=== PATIENT | male | born 1950 | race African-American/Black ===

== ENCOUNTER 2023-11-04 13:14 | Inpatient (IN) | payer BC, OTHER ==
[2023-11-04 15:08] LABS: HEMATOCRIT 41.4 % (35.4-49); MCH 31.8 pg (25.7-33.7); MCHC 33.8 g/dl (32.0-35.9); MEAN CELL VOLUME 94.1 fl (80-96); PLATELET COUNT 256 10^3/uL (134-434); RDW 16.1 % (11.9-15.9); VENOUS BASE EXCESS -2.1 mmol/L (-2-2); VENOUS PCO2 48.8 mmHg (38-52); VENOUS PH 7.32 (7.310-7.410); WHITE BLOOD COUNT 10.6 K/mm3 (4.0-10.0)
[2023-11-04] MEDS: SODIUM CHLORIDE 1,000 ML IV STA ×2 (15:27→20:53)
[2023-11-04] MEDS: ALBUTEROL SO4 2.5/IPRATROPIUM 0.5 INH SOL 3 ML VIAL.NEB. NEB SCH (15:30)
[2023-11-04] MEDS: MAGNESIUM SULFATE IN WATER 2 GM/50 ML IVPB IVPB ONE (15:30)
[2023-11-04] MEDS: methylPREDNISolone NA SUCC 125 MG/2 ML VIAL IVPB ONE ×2 (15:30→16:01)
[2023-11-04 15:39] LABS: CHLORIDE 90 mmol/L (98-107); POTASSIUM 4.7 mmol/L (3.5-5.1); SODIUM 129 mmol/L (136-145)
[2023-11-04 15:42] LABS: ALBUMIN 2.2 g/dl (3.4-5.0); ANION GAP 15 mmol/L (4-13); CALCIUM 8.4 mg/dL (8.5-10.1); CO2 24 mmol/L (21-32); GLUCOSE,RANDOM 240 mg/dL (74-106)
[2023-11-04 15:45] LABS: CREATININE 3.7 mg/dL (0.55-1.3); SGOT/AST 460 U/L (15-37); SGPT/ALT 271 U/L (13-61)
[2023-11-04 15:46] LABS: BILIRUBIN,TOTAL 1.2 mg/dL (0.2-1); TOT PROT 6.7 g/dl (6.4-8.2)
[2023-11-04 15:48] LABS: ALK PHOS 43 U/L (45-117)
[2023-11-04 15:57] LABS: LACTIC ACID 3.2 mmol/L (0.4-2.0)
[2023-11-04] MEDS ORDERED: LACTATED RINGERS SOLUTION 1,000 ML/1,000 ML INFUS.BAG IV SCH (17:15)
[2023-11-04] MEDS: CEFTRIAXONE 1 GM in DEXTROSE 5%-WATER - 100 ML IVPB ONE (17:20)
[2023-11-04 17:54] LABS: VENOUS O2 SATURATION 54.4 % (70-80); VENOUS PCO2 48.7 mmHg (38-52); VENOUS PH 7.293 (7.310-7.410)
[2023-11-04 18:38] LABS: CHLORIDE 93 mmol/L (98-107); POTASSIUM 4.6 mmol/L (3.5-5.1); SODIUM 132 mmol/L (136-145)
[2023-11-04 18:39] LABS: CALCIUM 8.3 mg/dL (8.5-10.1)
[2023-11-04 18:40] LABS: ALBUMIN 2.2 g/dl (3.4-5.0); ANION GAP 18 mmol/L (4-13); CO2 21 mmol/L (21-32); GLUCOSE,RANDOM 252 mg/dL (74-106)
[2023-11-04 18:43] LABS: CREATININE 3.5 mg/dL (0.55-1.3); SGOT/AST 443 U/L (15-37); SGPT/ALT 265 U/L (13-61)
[2023-11-04 18:45] LABS: BILIRUBIN,TOTAL 1.3 mg/dL (0.2-1); TOT PROT 6.5 g/dl (6.4-8.2)
[2023-11-04 18:46] LABS: ALK PHOS 41 U/L (45-117)
[2023-11-04 19:08] LABS: BLOOD UREA NITROGEN 115.7 mg/dL (7-18); N-TERMINAL BNP 65438.7 pg/ml (5-125)
[2023-11-04] MEDS ORDERED: IBUPROFEN 400 MG TABLET (FP) PO ONE (20:37)
[2023-11-04] MEDS ORDERED: THIAMINE HCL 200 MG/2 ML VIAL ONE (20:37)
[2023-11-04] MEDS: IBUPROFEN 400 MG TABLET (FP) PO ONE (20:53)
[2023-11-04] MEDS: THIAMINE HCL 200 MG/2 ML VIAL IVPB ONE (20:53)
[2023-11-04] MEDS ORDERED: FLUTICASONE/SALMETEROL (WIXELA) 100 MCG/50 MCG DISKUS IH SCH (22:00)
[2023-11-04] MEDS ORDERED: HEPARIN NA (PORCINE) 5,000 UNITS/ML 1ML VIAL ONE (22:30)
[2023-11-04] MEDS ORDERED: INSULIN ASPART SLIDING SCALE (NOVOLOG) 1 VIAL SQ ONE (22:30)
[2023-11-04] MEDS: HEPARIN NA (PORCINE) 5,000 UNITS/ML 1ML VIAL SQ SCH (22:46)
[2023-11-04] MEDS: INSULIN ASPART SLIDING SCALE (NOVOLOG) 1 VIAL SQ SCH (22:47)
[2023-11-05 00:08] LABS: EPI CELLS 5 /uL (0-25.1); HYALINE CASTS 2 /uL (0-3.1); PH,URINE 5.5 (5.0-8.0); URINE APPEARANCE CLEAR; URINE BACTERIA 0 /uL (0-1359); URINE BILIRUBIN NEGATIVE (NEGATIVE); URINE COLOR YELLOW; URINE GLUCOSE (UA) NEGATIVE (NEGATIVE); URINE KETONE NEGATIVE (NEGATIVE); URINE LEUK ESTERASE NEGATIVE (NEGATIVE); URINE NITRITE NEGATIVE (NEGATIVE); URINE PROTEIN 2+ (NEGATIVE); URINE UROBILINOGEN 0.2 mg/dL (0.2-1.0); URINE WBC 10 /uL (0-25.8)
[2023-11-05 07:57] LABS: HEMATOCRIT 39.7 % (35.4-49); HEMOGLOBIN 13.5 GM/dL (11.7-16.9); MCH 31.8 pg (25.7-33.7); MEAN CELL VOLUME 93.3 fl (80-96); MEAN PLT VOLUME 10.3 fl (7.5-11.1); PLATELET COUNT 221 10^3/uL (134-434); RBC 4.25 M/mm3 (4.00-5.60); RDW 15.6 % (11.9-15.9); WHITE BLOOD COUNT 10.1 K/mm3 (4.0-10.0)
[2023-11-05 08:08] LABS: CHLORIDE 92 mmol/L (98-107); SODIUM 132 mmol/L (136-145)
[2023-11-05 08:11] LABS: CALCIUM 8.2 mg/dL (8.5-10.1)
[2023-11-05 08:12] LABS: ALBUMIN 1.8 g/dl (3.4-5.0); ANION GAP 16 mmol/L (4-13); BLOOD UREA NITROGEN 129.5 mg/dL (7-18); CO2 24 mmol/L (21-32); GLUCOSE,RANDOM 334 mg/dL (74-106); MAGNESIUM 3.1 mg/dL (1.8-2.4)
[2023-11-05 08:15] LABS: CREATININE 3.2 mg/dL (0.55-1.3); PHOSPHOROUS 5.8 mg/dL (2.5-4.9); SGOT/AST 479 U/L (15-37); SGPT/ALT 237 U/L (13-61)
[2023-11-05 08:16] LABS: BILIRUBIN,TOTAL 1.2 mg/dL (0.2-1); TOT PROT 5.6 g/dl (6.4-8.2)
[2023-11-05 08:18] LABS: ALK PHOS 38 U/L (45-117)
[2023-11-05 09:04] LABS: ANISOCYTOSIS 0; MACROCYTOSIS 0
[2023-11-05] MEDS: THIAMINE 100 MG TABLET PO SCH (10:20)
[2023-11-05 10:39] LABS: BILIRUBIN,DIRECT 0.9 mg/dL (0.0-0.2)
[2023-11-05 10:48] LABS: ARTERIAL BLOOD GAS BASE EXCESS -5.6 mmol/L (-2-2); ARTERIAL BLOOD GAS PO2 93.2 mmHg (80-100); ARTERIAL BLOOD GAS pH 7.364 (7.350-7.450)
[2023-11-05 10:52] LABS: ALLENS TEST POSITIVE
[2023-11-05] MEDS: methylPREDNISolone NA SUCC 40 MG/1 ML VIAL IVPUSH SCH (11:17)
[2023-11-05] MEDS: PIPERACILLIN/TAZOB 2.25 GM 2.25 GM in DEXTROSE 5%-WATER - 50 ML IVPB SCH ×2 (11:19→18:02)
[2023-11-05] MEDS: FOLIC ACID 1 MG TABLET (FP) PO SCH (11:20)
[2023-11-05] MEDS: LACTATED RINGERS SOLUTION 1,000 ML/1,000 ML INFUS.BAG IV SCH ×2 (11:24→17:02)
[2023-11-05] MEDS: SODIUM CHLORIDE 250 ML IV STA (11:47)
[2023-11-05] MEDS ORDERED: MIDAZOLAM HCL 5 MG/1 ML Single Dose Vial ONE (11:54)
[2023-11-05] MEDS ORDERED: PROPOFOL 1,000,000 MCG/100 ML VIAL ONE (12:02)
[2023-11-05 12:09] LABS: HEMATOCRIT 37.4 % (35.4-49); HEMOGLOBIN 12.6 GM/dL (11.7-16.9); MCH 31.5 pg (25.7-33.7); MCHC 33.7 g/dl (32.0-35.9); MEAN CELL VOLUME 93.5 fl (80-96); MEAN PLT VOLUME 10.3 fl (7.5-11.1); PLATELET COUNT 231 10^3/uL (134-434); RDW 15.9 % (11.9-15.9); WHITE BLOOD COUNT 9.4 K/mm3 (4.0-10.0)
[2023-11-05] MEDS ORDERED: VASopressin 20 UNITS/ML VIAL IV ONE (12:17)
[2023-11-05] MEDS ORDERED: PHENYLEPHRINE HCL 10 MG/1 ML SINGLE DOSE VIAL ONE ×2 (12:21→23:16)
[2023-11-05 12:34] LABS: ANISOCYTOSIS 0; MACROCYTOSIS 0
[2023-11-05 12:57] LABS: LACTIC ACID 2.8 mmol/L (0.4-2.0)
[2023-11-05] MEDS ORDERED: PANTOPRAZOLE SODIUM 80 MG in SODIUM CHLORIDE 100 ML IVPB SCH (15:00)
[2023-11-05] MEDS ORDERED: PANTOPRAZOLE SODIUM 40 MG VIAL IVPUSH SCH ×2 (15:02→22:00)
[2023-11-05] MEDS: PHENYLEPHRINE NS PREMIX 50,000 MCG/500 ML BAG IVPB SCH (15:06)
[2023-11-05] MEDS: VASopressin 40 UNITS/100 ML BAG IV SCH (15:07)
[2023-11-05] MEDS: MIDAZOLAM HCL 5 MG/1 ML Single Dose Vial IVPUSH ONE (15:08)
[2023-11-05 15:36] LABS: INR 1.54 (0.83-1.09); PROTHROMBIN TIME (PATIENT) 17.5 SEC (9.7-13.0)
[2023-11-05 15:37] LABS: HEMATOCRIT 36.3 % (35.4-49); HEMOGLOBIN 12.4 GM/dL (11.7-16.9); MCH 31.8 pg (25.7-33.7); MCHC 34.1 g/dl (32.0-35.9); MEAN CELL VOLUME 93.1 fl (80-96); RDW 15.9 % (11.9-15.9); WHITE BLOOD COUNT 11.8 K/mm3 (4.0-10.0)
[2023-11-05 15:48] LABS: CHLORIDE 96 mmol/L (98-107); POTASSIUM 4.3 mmol/L (3.5-5.1); SODIUM 132 mmol/L (136-145)
[2023-11-05 15:50] LABS: ALBUMIN 1.6 g/dl (3.4-5.0); ANION GAP 17 mmol/L (4-13); CO2 20 mmol/L (21-32); GLUCOSE,RANDOM 290 mg/dL (74-106)
[2023-11-05 15:53] LABS: CREATININE 3.3 mg/dL (0.55-1.3); SGOT/AST 502 U/L (15-37)
[2023-11-05 15:55] LABS: BILIRUBIN,TOTAL 1.1 mg/dL (0.2-1); TOT PROT 5.2 g/dl (6.4-8.2)
[2023-11-05] MEDS: VANCOMYCIN/WATER FOR INJ (PEG) 1,000 MG/200 ML BAG IVPB ONE (15:55)
[2023-11-05 15:56] LABS: ALK PHOS 36 U/L (45-117)
[2023-11-05 15:56] LABS: MEAN PLT VOLUME 10.3 fl (7.5-11.1); PLATELET COUNT 230 10^3/uL (134-434)
[2023-11-05 15:59] LABS: SGPT/ALT 223 U/L (13-61)
[2023-11-05 16:07] LABS: BLOOD UREA NITROGEN 141.6 mg/dL (7-18)
[2023-11-05 16:19] LABS: LACTIC ACID 2.6 mmol/L (0.4-2.0)
[2023-11-05] MEDS: NOREPINEPHRINE 0.9 % NACL 8 MG/250 ML BAG IVPB SCH (16:31)
[2023-11-05 16:39] LABS: HEMATOCRIT 37.3 % (35.4-49); HEMOGLOBIN 12.4 GM/dL (11.7-16.9); MCH 31.1 pg (25.7-33.7); MCHC 33.2 g/dl (32.0-35.9); MEAN CELL VOLUME 93.4 fl (80-96); RBC 3.99 M/mm3 (4.00-5.60); RDW 15.9 % (11.9-15.9); WHITE BLOOD COUNT 11.9 K/mm3 (4.0-10.0)
[2023-11-05 17:01] LABS: ANISOCYTOSIS 1+; MACROCYTOSIS 0; MEAN PLT VOLUME 10.4 fl (7.5-11.1); PLATELET COUNT 227 10^3/uL (134-434)
[2023-11-05] MEDS: MIDAZOLAM IN 0.9 % SOD.CHLORID 100 MG/100 ML PLAST..BAG IVPB SCH (17:02)
[2023-11-05] MEDS: SODIUM CHLORIDE 500 ML IV STA ×2 (17:03→20:37)
[2023-11-05] MEDS: PANTOPRAZOLE SODIUM 160 MG in SODIUM CHLORIDE 250 ML IVPB SCH ×2 (18:02→19:00)
[2023-11-05] MEDS: FENTANYL NS IVPB 500 MCG/100 ML BAG IVPB SCH (19:52)
[2023-11-05 21:05] LABS: VENOUS BASE EXCESS -7.3 mmol/L (-2-2); VENOUS O2 SATURATION 53.9 % (70-80); VENOUS PCO2 49.1 mmHg (38-52); VENOUS PH 7.236 (7.310-7.410)
[2023-11-05 21:06] LABS: HEMATOCRIT 35.8 % (35.4-49); HEMOGLOBIN 12.1 GM/dL (11.7-16.9); MCH 31.4 pg (25.7-33.7); MCHC 33.7 g/dl (32.0-35.9); MEAN CELL VOLUME 93.1 fl (80-96); MEAN PLT VOLUME 10.6 fl (7.5-11.1); PLATELET COUNT 201 10^3/uL (134-434); RBC 3.85 M/mm3 (4.00-5.60); RDW 16.1 % (11.9-15.9); WHITE BLOOD COUNT 10.7 K/mm3 (4.0-10.0)
[2023-11-05] MEDS: LACTATED RINGERS SOLUTION 1000 ML INFUS.BAG IV ONE (23:45)
[2023-11-06 06:53] LABS: HEMATOCRIT 33.4 % (35.4-49); HEMOGLOBIN 11.1 GM/dL (11.7-16.9); MCH 31.6 pg (25.7-33.7); MCHC 33.1 g/dl (32.0-35.9); MEAN CELL VOLUME 95.4 fl (80-96); MEAN PLT VOLUME 10.8 fl (7.5-11.1); PLATELET COUNT 165 10^3/uL (134-434); RBC 3.51 M/mm3 (4.00-5.60); RDW 15.8 % (11.9-15.9); WHITE BLOOD COUNT 10.3 K/mm3 (4.0-10.0)
[2023-11-06 06:58] LABS: INR 1.54 (0.83-1.09); PROTHROMBIN TIME (PATIENT) 17.5 SEC (9.7-13.0)
[2023-11-06 07:01] LABS: ACTIVATED PTT 28.3 SECONDS (25.2-36.5)
[2023-11-06 08:43] LABS: HEMATOCRIT 34.2 % (35.4-49); HEMOGLOBIN 11.3 GM/dL (11.7-16.9); MCH 31.4 pg (25.7-33.7); MCHC 33.1 g/dl (32.0-35.9); MEAN PLT VOLUME 10.4 fl (7.5-11.1); PLATELET COUNT 148 10^3/uL (134-434); RDW 16.3 % (11.9-15.9); WHITE BLOOD COUNT 11.8 K/mm3 (4.0-10.0)
[2023-11-06 09:06] LABS: CHLORIDE 106 mmol/L (98-107); SODIUM 136 mmol/L (136-145)
[2023-11-06 09:08] LABS: CALCIUM 7.5 mg/dL (8.5-10.1)
[2023-11-06 09:09] LABS: ALBUMIN 1.5 g/dl (3.4-5.0); ANION GAP 15 mmol/L (4-13); CO2 14 mmol/L (21-32); GLUCOSE,RANDOM 133 mg/dL (74-106)
[2023-11-06 09:11] LABS: BLOOD UREA NITROGEN 135.4 mg/dL (7-18); SGPT/ALT 276 U/L (13-61)
[2023-11-06 09:12] LABS: CREATININE 3.5 mg/dL (0.55-1.3); SGOT/AST 903 U/L (15-37)
[2023-11-06 09:13] LABS: BILIRUBIN,TOTAL 1.1 mg/dL (0.2-1); TOT PROT 4.9 g/dl (6.4-8.2)
[2023-11-06 09:14] LABS: ALK PHOS 35 U/L (45-117); ANISOCYTOSIS 0; MACROCYTOSIS 0
[2023-11-06 09:58] LABS: ARTERIAL BLOOD GAS PO2 70.6 mmHg (80-100)
[2023-11-06] MEDS ORDERED: AZITHROMYCIN IVPB 500 MG/250 ML BAG IVPB SCH ×2 (10:00→23:00)
[2023-11-06] MEDS ORDERED: PANTOPRAZOLE 40 MG TABLET PO SCH (10:00)
[2023-11-06 10:03] LABS: VENT MODE A/C; VENT RATE 12
[2023-11-06] MEDS: AZITHROMYCIN IVPB 500 MG/250 ML BAG IVPB SCH (10:23)
[2023-11-06 11:22] LABS: VENOUS BASE EXCESS -13.3 mmol/L (-2-2); VENOUS O2 SATURATION 70.7 % (70-80); VENOUS PCO2 36.3 mmHg (38-52)
[2023-11-06 11:27] LABS: VENOUS PH 7.198 (7.310-7.410)
[2023-11-06] MEDS: HYDROCORTISONE SOD SUCCINATE 100 MG/2 ML VIAL IVPUSH SCH (11:48)
[2023-11-06] MEDS: PIPERACILLIN/TAZOB 2.25 GM 2.25 GM in DEXTROSE 5%-WATER - 50 ML IVPB SCH (12:13)
[2023-11-06] MEDS: FENTANYL IVPB 500 MCG/100 ML BAG IVPB SCH (12:13)
[2023-11-06] MEDS: PANTOPRAZOLE SODIUM 40 MG VIAL IVPUSH SCH (12:13)
[2023-11-06] MEDS: PROPOFOL 1,000,000 MCG/100 ML VIAL IVPB SCH (12:13)
[2023-11-06] MEDS: DOXYCYCLINE INJECTION 100 MG in DEXTROSE 5%-WATER 100 ML IVPB SCH (12:13)
[2023-11-06] MEDS: ADENOSINE 6 MG/2 ML VIAL IVPUSH ONE (12:13)
[2023-11-06] MEDS: AZITHROMYCIN IVPB 500 MG in DEXTROSE 5%-WATER - 250 ML IVPB ONE (12:13)
[2023-11-06] MEDS: dilTIAZem HCL 50 MG/10 ML - 10 ML VIAL IVPUSH ONE (12:16)
[2023-11-06] MEDS: SODIUM BICARBONATE 8.4% 50 MEQ/50 ML DISP.SYRIN IVPUSH ONE (12:37)
[2023-11-06 13:09] LABS: METHADONE, UR NEGATIVE (NEGATIVE); URINE AMPHETAMINES NEGATIVE (NEGATIVE); URINE BARBITURATES NEGATIVE (NEGATIVE)
[2023-11-06 13:10] LABS: PHENCYCLIDINE,URINE NEGATIVE (NEGATIVE)
[2023-11-06 13:18] LABS: COCAINE, UR NEGATIVE (NEGATIVE); OPIATES, URI NEGATIVE (NEGATIVE); URINE BENZODIAZEPINES POSITIVE (NEGATIVE)
[2023-11-06] MEDS: SODIUM BICARBONATE 8.4% - 150 MEQ in DEXTROSE 5%-WATER - 950 ML IVPB SCH (13:25)
[2023-11-06] MEDS: FLUDROCORTISONE ACETATE 0.1 MG TABLET (FP) NGT SCH (15:49)
[2023-11-06] MEDS: DIGOXIN 0.5 MG/2 ML AMPUL IVPUSH SCH (16:44)
[2023-11-07 02:54] LABS: HEMATOCRIT 29.6 % (35.4-49); HEMOGLOBIN 9.9 GM/dL (11.7-16.9); MCHC 33.3 g/dl (32.0-35.9); MEAN CELL VOLUME 93.2 fl (80-96); MEAN PLT VOLUME 10.3 fl (7.5-11.1); PLATELET COUNT 102 10^3/uL (134-434); RBC 3.17 M/mm3 (4.00-5.60); RDW 16.9 % (11.9-15.9); WHITE BLOOD COUNT 18.9 K/mm3 (4.0-10.0)
[2023-11-07 02:55] LABS: ARTERIAL BLD GAS O2 SATURATION 93.3 % (95-98); ARTERIAL BLOOD GAS BASE EXCESS -8.6 mmol/L (-2-2); ARTERIAL BLOOD GAS PO2 75.4 mmHg (80-100); ARTERIAL BLOOD GAS pH 7.269 (7.350-7.450)
[2023-11-07 03:01] LABS: INR 2.09 (0.83-1.09); PROTHROMBIN TIME (PATIENT) 23.1 SEC (9.7-13.0)
[2023-11-07 03:04] LABS: ACTIVATED PTT 32.5 SECONDS (25.2-36.5)
[2023-11-07 03:14] LABS: CHLORIDE 103 mmol/L (98-107); POTASSIUM 4.8 mmol/L (3.5-5.1); SODIUM 136 mmol/L (136-145)
[2023-11-07 03:16] LABS: ALBUMIN 1.4 g/dl (3.4-5.0); MAGNESIUM 2.9 mg/dL (1.8-2.4)
[2023-11-07 03:17] LABS: GLUCOSE,RANDOM 316 mg/dL (74-106)
[2023-11-07 03:20] LABS: CREATININE 4.4 mg/dL (0.55-1.3); PHOSPHOROUS 7.7 mg/dL (2.5-4.9); SGPT/ALT 716 U/L (13-61)
[2023-11-07 03:21] LABS: BILIRUBIN,TOTAL 1.7 mg/dL (0.2-1); TOT PROT 4.5 g/dl (6.4-8.2)
[2023-11-07 03:22] LABS: ALK PHOS 39 U/L (45-117)
[2023-11-07 03:27] LABS: ANION GAP 14 mmol/L (4-13); BLOOD UREA NITROGEN 146.7 mg/dL (7-18); CALCIUM 6.7 mg/dL (8.5-10.1); CO2 19 mmol/L (21-32)
[2023-11-07 03:28] LABS: ANISOCYTOSIS 3+; MACROCYTOSIS 3+
[2023-11-07 04:01] LABS: SGOT/AST 4111 U/L (15-37)
[2023-11-07 09:24] LABS: BILIRUBIN,DIRECT 1.3 mg/dL (0.0-0.2)
[2023-11-07] MEDS ORDERED: FLUDROCORTISONE ACETATE 0.1 MG TABLET (FP) NGT SCH (10:00)
[2023-11-07 11:48] LABS: HEMATOCRIT 27.5 % (35.4-49); MCH 30.4 pg (25.7-33.7); MCHC 32.7 g/dl (32.0-35.9); MEAN PLT VOLUME 10.1 fl (7.5-11.1); PLATELET COUNT 62 10^3/uL (134-434); RBC 2.96 M/mm3 (4.00-5.60); RDW 16.7 % (11.9-15.9); WHITE BLOOD COUNT 18.3 K/mm3 (4.0-10.0)
[2023-11-07 12:15] LABS: ANISOCYTOSIS 0; MACROCYTOSIS 0
[2023-11-07] MEDS ORDERED: PIPERACILLIN/TAZOB 2.25 GM 2.25 GM in DEXTROSE 5%-WATER - 50 ML IVPB SCH (12:45)
[2023-11-07] MEDS: OCTREOTIDE ACETATE 50 MCG/1 ML - 1 ML VIAL IVPUSH ONE (12:57)
[2023-11-07] MEDS: OCTREOTIDE ACETATE 200 MCG, OCTREOTIDE ACETATE 1,000 MCG in DEXTROSE 5%-WATER - 496 ML IVPB SCH (12:57)
[2023-11-07] MEDS: PIPERACILLIN/TAZOB 2.25 GM 2.25 GM in DEXTROSE 5%-WATER - 50 ML IVPB SCH (16:25)
[2023-11-07 20:09] LABS: ANTIGLOMERULAR BASEMENT MEN.AB <0.2 units (0.0-0.9)
[2023-11-08 08:02] LABS: HEMATOCRIT 26.5 % (35.4-49); HEMOGLOBIN 8.8 GM/dL (11.7-16.9); MCH 30.9 pg (25.7-33.7); MCHC 33.1 g/dl (32.0-35.9); MEAN CELL VOLUME 93.3 fl (80-96); MEAN PLT VOLUME 10.9 fl (7.5-11.1); PLATELET COUNT 40 10^3/uL (134-434); RBC 2.84 M/mm3 (4.00-5.60); RDW 16.4 % (11.9-15.9)
[2023-11-08 08:14] LABS: CHLORIDE 98 mmol/L (98-107); POTASSIUM 4.7 mmol/L (3.5-5.1); SODIUM 137 mmol/L (136-145)
[2023-11-08 08:19] LABS: ALBUMIN 1.2 g/dl (3.4-5.0)
[2023-11-08 08:20] LABS: ANION GAP 14 mmol/L (4-13); CO2 25 mmol/L (21-32); GLUCOSE,RANDOM 383 mg/dL (74-106); MAGNESIUM 2.7 mg/dL (1.8-2.4)
[2023-11-08 08:22] LABS: SGPT/ALT 409 U/L (13-61)
[2023-11-08 08:23] LABS: CREATININE 4.6 mg/dL (0.55-1.3)
[2023-11-08 08:24] LABS: INR 1.72 (0.83-1.09); PROTHROMBIN TIME (PATIENT) 19.1 SEC (9.7-13.0); TOT PROT 4.1 g/dl (6.4-8.2)
[2023-11-08 08:25] LABS: ALK PHOS 48 U/L (45-117)
[2023-11-08 08:39] LABS: BLOOD UREA NITROGEN 150.2 mg/dL (7-18); CALCIUM 6.6 mg/dL (8.5-10.1); SGOT/AST 1029 U/L (15-37)
[2023-11-08] MEDS: DIGOXIN 0.5 MG/2 ML AMPUL IVPUSH ONE (09:18)
[2023-11-08] MEDS ORDERED: SODIUM CHLORIDE 250 ML IV PRN (09:20)
[2023-11-08 09:54] LABS: ANISOCYTOSIS 1+; MACROCYTOSIS 0
[2023-11-08 16:25] VITALS: BMI 31.4
[2023-11-08] MEDS: PANTOPRAZOLE SODIUM 40 MG VIAL IVPUSH SCH (21:26)
[2023-11-09 09:31] LABS: CHLORIDE 99 mmol/L (98-107); POTASSIUM 4.9 mmol/L (3.5-5.1); SODIUM 138 mmol/L (136-145)
[2023-11-09 09:32] LABS: HEMATOCRIT 26.9 % (35.4-49); MCH 30.9 pg (25.7-33.7); MCHC 33.2 g/dl (32.0-35.9); MEAN CELL VOLUME 92.9 fl (80-96); MEAN PLT VOLUME 7.7 fl (7.5-11.1); RDW 16.3 % (11.9-15.9); WHITE BLOOD COUNT 24.9 K/mm3 (4.0-10.0)
[2023-11-09 09:41] LABS: ALBUMIN 1.2 g/dl (3.4-5.0); ANION GAP 11 mmol/L (4-13); CO2 28 mmol/L (21-32); GLUCOSE,RANDOM 266 mg/dL (74-106); MAGNESIUM 2.7 mg/dL (1.8-2.4)
[2023-11-09 09:42] LABS: BLOOD UREA NITROGEN 125.8 mg/dL (7-18); CALCIUM 6.6 mg/dL (8.5-10.1)
[2023-11-09 09:43] LABS: SGOT/AST 493 U/L (15-37); SGPT/ALT 290 U/L (13-61)
[2023-11-09 09:44] LABS: CREATININE 4.4 mg/dL (0.55-1.3); PHOSPHOROUS 6.9 mg/dL (2.5-4.9)
[2023-11-09 09:45] LABS: TOT PROT 4.2 g/dl (6.4-8.2)
[2023-11-09 09:46] LABS: ALK PHOS 67 U/L (45-117)
[2023-11-09 11:05] LABS: ANISOCYTOSIS 0; MACROCYTOSIS 0
[2023-11-09] MEDS: CALCIUM GLUC IN NACL, ISO-OSM 1 GM/50 ML BAG IVPB ONE (11:31)
[2023-11-09 11:39] LABS: PLATELET COUNT 21 10^3/uL (134-434)
[2023-11-09] MEDS: PHYTONADIONE 10 MG/1 ML AMP IVPB ONE (12:46)
[2023-11-09] MEDS: HYDROCORTISONE SOD SUCCINATE 100 MG/2 ML VIAL IVPUSH SCH (12:48)
[2023-11-09] MEDS: OCTREOTIDE ACETATE 200 MCG, OCTREOTIDE ACETATE 1,000 MCG in DEXTROSE 5%-WATER - 496 ML IVPB SCH (13:53)
[2023-11-09 17:39] LABS: HEMATOCRIT 25.6 % (35.4-49); HEMOGLOBIN 8.5 GM/dL (11.7-16.9); MCH 30.7 pg (25.7-33.7); MCHC 33.2 g/dl (32.0-35.9); MEAN CELL VOLUME 92.4 fl (80-96); MEAN PLT VOLUME 9.4 fl (7.5-11.1); PLATELET COUNT 104 10^3/uL (134-434); RBC 2.77 M/mm3 (4.00-5.60); RDW 16.9 % (11.9-15.9); WHITE BLOOD COUNT 25.6 K/mm3 (4.0-10.0)
[2023-11-10 07:41] LABS: ARTERIAL BLD GAS O2 SATURATION 92.9 % (95-98); ARTERIAL BLOOD GAS BASE EXCESS -6.4 mmol/L (-2-2); ARTERIAL BLOOD GAS pH 7.333 (7.350-7.450)
[2023-11-10 08:26] LABS: HEMATOCRIT 27.3 % (35.4-49); HEMOGLOBIN 9.2 GM/dL (11.7-16.9); MCH 31.2 pg (25.7-33.7); MCHC 33.8 g/dl (32.0-35.9); MEAN CELL VOLUME 92.3 fl (80-96); MEAN PLT VOLUME 10.6 fl (7.5-11.1); PLATELET COUNT 99 10^3/uL (134-434); RBC 2.95 M/mm3 (4.00-5.60); RDW 16.4 % (11.9-15.9); WHITE BLOOD COUNT 25.4 K/mm3 (4.0-10.0)
[2023-11-10 08:38] LABS: ACTIVATED PTT 31.1 SECONDS (25.2-36.5)
[2023-11-10 08:39] LABS: INR 1.52 (0.83-1.09)
[2023-11-10 08:46] LABS: CHLORIDE 98 mmol/L (98-107); POTASSIUM 5.3 mmol/L (3.5-5.1); SODIUM 138 mmol/L (136-145)
[2023-11-10 08:51] LABS: ALBUMIN 1.3 g/dl (3.4-5.0); ANION GAP 15 mmol/L (4-13); CALCIUM 7.1 mg/dL (8.5-10.1); CO2 25 mmol/L (21-32)
[2023-11-10 08:52] LABS: GLUCOSE,RANDOM 256 mg/dL (74-106); MAGNESIUM 2.8 mg/dL (1.8-2.4)
[2023-11-10 08:54] LABS: BILIRUBIN,DIRECT 1.4 mg/dL (0.0-0.2); CREATININE 5.3 mg/dL (0.55-1.3); SGOT/AST 258 U/L (15-37); SGPT/ALT 202 U/L (13-61)
[2023-11-10 08:55] LABS: PHOSPHOROUS 8.3 mg/dL (2.5-4.9)
[2023-11-10 08:56] LABS: BILIRUBIN,TOTAL 1.9 mg/dL (0.2-1); TOT PROT 4.6 g/dl (6.4-8.2)
[2023-11-10 08:57] LABS: ALK PHOS 84 U/L (45-117)
[2023-11-10 09:11] LABS: BLOOD UREA NITROGEN 148.1 mg/dL (7-18)
[2023-11-10] MEDS ORDERED: PANTOPRAZOLE SODIUM 80 MG in SODIUM CHLORIDE 100 ML IVPB SCH (10:15)
[2023-11-10] MEDS ORDERED: SODIUM CHLORIDE 250 ML IV PRN (11:07)
[2023-11-10] MEDS: PANTOPRAZOLE SODIUM 160 MG in SODIUM CHLORIDE 290 ML IVPB SCH (13:02)
[2023-11-10 15:07] LABS: C-ANCA <1:20 titer (Neg:<1:20)
[2023-11-10] MEDS: AMINO ACIDS 4.25%/D5W 1,000 ML IV SCH (15:09)
[2023-11-11 07:28] LABS: HEMATOCRIT 27.2 % (35.4-49); HEMOGLOBIN 9.1 GM/dL (11.7-16.9); MCHC 33.4 g/dl (32.0-35.9); MEAN CELL VOLUME 92.7 fl (80-96); MEAN PLT VOLUME 11.7 fl (7.5-11.1); PLATELET COUNT 103 10^3/uL (134-434); RBC 2.93 M/mm3 (4.00-5.60); RDW 16.6 % (11.9-15.9); WHITE BLOOD COUNT 22.4 K/mm3 (4.0-10.0)
[2023-11-11 07:31] LABS: ARTERIAL BLD GAS O2 SATURATION 94.4 % (95-98); ARTERIAL BLOOD GAS BASE EXCESS -0.4 mmol/L (-2-2); ARTERIAL BLOOD GAS PO2 76.1 mmHg (80-100)
[2023-11-11 07:43] LABS: CHLORIDE 102 mmol/L (98-107); POTASSIUM 5.2 mmol/L (3.5-5.1); SODIUM 138 mmol/L (136-145)
[2023-11-11 07:49] LABS: ALBUMIN 1.1 g/dl (3.4-5.0)
[2023-11-11 07:50] LABS: ANION GAP 9 mmol/L (4-13); CO2 28 mmol/L (21-32); GLUCOSE,RANDOM 303 mg/dL (74-106); MAGNESIUM 2.7 mg/dL (1.8-2.4)
[2023-11-11 07:52] LABS: CREATININE 4.5 mg/dL (0.55-1.3); SGOT/AST 134 U/L (15-37)
[2023-11-11 07:53] LABS: BILIRUBIN,TOTAL 1.2 mg/dL (0.2-1); CALCIUM 6.8 mg/dL (8.5-10.1)
[2023-11-11 07:54] LABS: SGPT/ALT 138 U/L (13-61); TOT PROT 4.3 g/dl (6.4-8.2)
[2023-11-11 07:55] LABS: ALK PHOS 74 U/L (45-117)
[2023-11-11] MEDS: HYDROCORTISONE SOD SUCCINATE 100 MG/2 ML VIAL IVPUSH SCH (10:01)
[2023-11-11] MEDS: PANTOPRAZOLE SODIUM 40 MG VIAL IVPUSH SCH (10:01)
[2023-11-11] MEDS ORDERED: SODIUM CHLORIDE 250 ML IV PRN (13:45)
[2023-11-11] MEDS: ALBUMIN HUMAN 25% 12.5 GM/50 ML VIAL IV SCH (14:15)
[2023-11-11] MEDS: EPOETIN ALFA-EPBX 4,000 UNIT/ML VIAL IVPUSH ONE (14:26)
[2023-11-11] MEDS: SEVELAMER CARBONATE 800 MG TAB (FP) PO SCH (22:29)
[2023-11-11] MEDS: CALCIUM CARBONATE SUSPENSION - 1250 MG/5 ML ML NGT SCH (23:00)
[2023-11-12] MEDS: hydrALAZINE HCL 20 MG/ML VIAL IVPUSH PRN (02:12)
[2023-11-12] MEDS: METOPROLOL TARTRATE 25 MG TABLET (FP) PO SCH (05:43)
[2023-11-12 06:28] LABS: HEMATOCRIT 28.1 % (35.4-49); HEMOGLOBIN 9.3 GM/dL (11.7-16.9); MCH 30.8 pg (25.7-33.7); MCHC 33.1 g/dl (32.0-35.9); MEAN CELL VOLUME 93.3 fl (80-96); MEAN PLT VOLUME 11.5 fl (7.5-11.1); PLATELET COUNT 122 10^3/uL (134-434); RBC 3.01 M/mm3 (4.00-5.60); RDW 16.2 % (11.9-15.9); WHITE BLOOD COUNT 24.5 K/mm3 (4.0-10.0)
[2023-11-12 06:51] LABS: CHLORIDE 102 mmol/L (98-107); POTASSIUM 4.3 mmol/L (3.5-5.1); SODIUM 141 mmol/L (136-145)
[2023-11-12 06:55] LABS: ANION GAP 14 mmol/L (4-13); CALCIUM 7.3 mg/dL (8.5-10.1); CO2 24 mmol/L (21-32); GLUCOSE,RANDOM 283 mg/dL (74-106)
[2023-11-12 06:56] LABS: MAGNESIUM 2.4 mg/dL (1.8-2.4)
[2023-11-12 06:57] LABS: BILIRUBIN,DIRECT 1.4 mg/dL (0.0-0.2); PHOSPHOROUS 6.5 mg/dL (2.5-4.9); SGOT/AST 90 U/L (15-37); SGPT/ALT 94 U/L (13-61)
[2023-11-12 06:59] LABS: CREATININE 3.9 mg/dL (0.55-1.3)
[2023-11-12 07:00] LABS: BILIRUBIN,TOTAL 2.1 mg/dL (0.2-1); TOT PROT 4.8 g/dl (6.4-8.2)
[2023-11-12 07:01] LABS: ALK PHOS 75 U/L (45-117)
[2023-11-12 07:22] LABS: ALBUMIN 1.9 g/dl (3.4-5.0); BLOOD UREA NITROGEN 112.7 mg/dL (7-18)
[2023-11-12] MEDS: CALCIUM CARBONATE 650 MG TABLET PO SCH (08:07)
[2023-11-12 09:21] LABS: ARTERIAL BLD GAS O2 SATURATION 92.6 % (95-98); ARTERIAL BLOOD GAS BASE EXCESS 0.4 mmol/L (-2-2); ARTERIAL BLOOD GAS PO2 63.6 mmHg (80-100)
[2023-11-12 09:25] LABS: VENT MODE A/C; VENT RATE 12
[2023-11-12 10:02] LABS: ANISOCYTOSIS 0; MACROCYTOSIS 0
[2023-11-12] MEDS ORDERED: SODIUM CHLORIDE 250 ML IV PRN (10:45)
[2023-11-12] MEDS: NIFEdipine 10 MG CAPSULE (FP) PO SCH (12:44)
[2023-11-12] MEDS: ALBUMIN HUMAN 25% 12.5 GM/50 ML VIAL IV SCH (16:20)
[2023-11-13 07:47] LABS: HEMATOCRIT 30.1 % (35.4-49); HEMOGLOBIN 9.9 GM/dL (11.7-16.9); MEAN CELL VOLUME 93.8 fl (80-96); MEAN PLT VOLUME 11.4 fl (7.5-11.1); PLATELET COUNT 169 10^3/uL (134-434); RBC 3.21 M/mm3 (4.00-5.60); RDW 16.2 % (11.9-15.9)
[2023-11-13 07:48] LABS: WHITE BLOOD COUNT 30.1 K/mm3 (4.0-10.0)
[2023-11-13 07:50] LABS: INR 1.6 (0.83-1.09); PROTHROMBIN TIME (PATIENT) 17.8 SEC (9.7-13.0)
[2023-11-13 07:53] LABS: ACTIVATED PTT 35.4 SECONDS (25.2-36.5)
[2023-11-13 08:00] LABS: POTASSIUM 4.3 mmol/L (3.5-5.1)
[2023-11-13 08:07] LABS: ALBUMIN 2.2 g/dl (3.4-5.0); CALCIUM 7.7 mg/dL (8.5-10.1); MAGNESIUM 2.3 mg/dL (1.8-2.4)
[2023-11-13 08:10] LABS: BILIRUBIN,TOTAL 2.4 mg/dL (0.2-1); CREATININE 3.4 mg/dL (0.55-1.3); PHOSPHOROUS 5.6 mg/dL (2.5-4.9); TOT PROT 5.2 g/dl (6.4-8.2)
[2023-11-13] MEDS: AMINO ACIDS/PROTEIN HYDROLYS 30 ML LIQUID.PKT PO SCH (08:23)
[2023-11-13 08:56] LABS: ANISOCYTOSIS 0; MACROCYTOSIS 0
[2023-11-13] MEDS: FUROSEMIDE 40 MG/4 ML INJECTABLE VIAL IVPUSH ONE ×2 (09:42→16:48)
[2023-11-13] MEDS: PROPOFOL 1,000,000 MCG/100 ML VIAL IVPB SCH (10:45)
[2023-11-13] MEDS: INSULIN (LEVEMIR) 100 UNITS/ML UNITS SQ SCH (21:52)
[2023-11-14] MEDS ORDERED: FUROSEMIDE 40 MG/4 ML INJECTABLE VIAL IVPUSH ONE (06:00)
[2023-11-14] MEDS: INSULIN ASPART SLIDING SCALE (NOVOLOG) 1 VIAL SQ SCH (06:23)
[2023-11-14] MEDS: METOLAZONE 5 MG TABLET PO ONE (06:26)
[2023-11-14] MEDS: FUROSEMIDE 40 MG/4 ML INJECTABLE VIAL IVPUSH ONE ×2 (07:02→22:12)
[2023-11-14 07:45] LABS: HEMATOCRIT 28.3 % (35.4-49); HEMOGLOBIN 9.2 GM/dL (11.7-16.9); MCH 30.8 pg (25.7-33.7); MCHC 32.4 g/dl (32.0-35.9); MEAN CELL VOLUME 95.2 fl (80-96); MEAN PLT VOLUME 11.7 fl (7.5-11.1); PLATELET COUNT 200 10^3/uL (134-434); RBC 2.98 M/mm3 (4.00-5.60); RDW 16.5 % (11.9-15.9); WHITE BLOOD COUNT 27.6 K/mm3 (4.0-10.0)
[2023-11-14 08:04] LABS: CHLORIDE 103 mmol/L (98-107); POTASSIUM 4.2 mmol/L (3.5-5.1); SODIUM 142 mmol/L (136-145)
[2023-11-14 08:05] LABS: CALCIUM 7.8 mg/dL (8.5-10.1)
[2023-11-14 08:06] LABS: ALBUMIN 1.8 g/dl (3.4-5.0); ANION GAP 11 mmol/L (4-13); CO2 28 mmol/L (21-32); GLUCOSE,RANDOM 361 mg/dL (74-106); MAGNESIUM 2.4 mg/dL (1.8-2.4)
[2023-11-14 08:07] LABS: BLOOD UREA NITROGEN 114.3 mg/dL (7-18)
[2023-11-14 08:08] LABS: CREATININE 3.9 mg/dL (0.55-1.3)
[2023-11-14 08:09] LABS: PHOSPHOROUS 6.3 mg/dL (2.5-4.9); SGOT/AST 58 U/L (15-37); SGPT/ALT 61 U/L (13-61)
[2023-11-14 08:10] LABS: BILIRUBIN,TOTAL 1.3 mg/dL (0.2-1)
[2023-11-14 08:12] LABS: ALK PHOS 97 U/L (45-117)
[2023-11-14] MEDS ORDERED: SODIUM CHLORIDE 250 ML IV PRN (08:44)
[2023-11-14] MEDS ORDERED: ALBUMIN HUMAN 25% 12.5 GM/50 ML VIAL IVPB SCH (08:45)
[2023-11-14 09:10] LABS: INR 1.46 (0.83-1.09); PROTHROMBIN TIME (PATIENT) 16.3 SEC (9.7-13.0)
[2023-11-14 09:36] LABS: ANISOCYTOSIS 1+; MACROCYTOSIS 0; TARGET CELLS 1+
[2023-11-14] MEDS ORDERED: FENTANYL IVPB 500 MCG/100 ML BAG IVPB SCH (10:00)
[2023-11-14] MEDS: INSULIN (LEVEMIR) 100 UNITS/ML UNITS SQ SCH (10:00)
[2023-11-14] MEDS: FENTANYL NS IVPB 500 MCG/100 ML BAG IVPB SCH (10:31)
[2023-11-14] MEDS ORDERED: LABETALOL HCL 5 MG/1 ML (200MG/40ML VIAL) IVPB SCH (14:00)
[2023-11-14] MEDS: LABETALOL HCL 100 MG TABLET (FP) NGT SCH (14:02)
[2023-11-14] MEDS ORDERED: ALBUTEROL SO4 0.083% IH SOL 2.5 MG/3 ML VIAL.NEB. NEB PRN (19:10)
[2023-11-14] MEDS ORDERED: ACETYLCYSTEINE 20% 200MG/ML 30 ML VIAL *FOR ORAL / INH USE ONLY NEB ONE (19:12)
[2023-11-14] MEDS: DEXMEDETOMIDINE PREMIX 400 MCG/100 ML BAG IVPB SCH (19:40)
[2023-11-14] MEDS ORDERED: ACETYLCYSTEINE 20% 200MG/ML 4 ML VIAL *FOR ORAL / INH USE ONLY NEB ONE (19:45)
[2023-11-14] MEDS ORDERED: ALBUTEROL SO4 0.083% IH SOL 2.5 MG/3 ML VIAL.NEB. NEB SCH (20:00)
[2023-11-14] MEDS: ACETYLCYSTEINE 20% 200MG/ML 30 ML VIAL *FOR ORAL / INH USE ONLY NEB SCH (20:06)
[2023-11-14] MEDS: ALBUTEROL SO4 0.083% IH SOL 2.5 MG/3 ML VIAL.NEB. NEB SCH (20:07)
[2023-11-14] MEDS: NOREPINEPHRINE 0.9 % NACL 8 MG/250 ML BAG IVPB SCH (20:20)
[2023-11-14] MEDS: ALBUMIN HUMAN 5% 500 ML IV SOLUTION IV ONE (21:00)
[2023-11-14] MEDS: NIFEdipine 10 MG CAPSULE (FP) PO SCH (22:09)
[2023-11-15] MEDS: ACETYLCYSTEINE 20% 200MG/ML 4 ML VIAL *FOR ORAL / INH USE ONLY NEB SCH (08:03)
[2023-11-15] MEDS ORDERED: SODIUM CHLORIDE 250 ML IV PRN (10:31)
[2023-11-15 10:33] LABS: HEMATOCRIT 24.4 % (35.4-49); HEMOGLOBIN 7.8 GM/dL (11.7-16.9); MCH 30.1 pg (25.7-33.7); MEAN CELL VOLUME 94.1 fl (80-96); MEAN PLT VOLUME 10.7 fl (7.5-11.1); PLATELET COUNT 185 10^3/uL (134-434); RDW 16.7 % (11.9-15.9); WHITE BLOOD COUNT 23.7 K/mm3 (4.0-10.0)
[2023-11-15 10:45] LABS: CHLORIDE 104 mmol/L (98-107); POTASSIUM 4.2 mmol/L (3.5-5.1); SODIUM 144 mmol/L (136-145)
[2023-11-15 10:51] LABS: ALBUMIN 1.9 g/dl (3.4-5.0); ANION GAP 8 mmol/L (4-13); CALCIUM 7.5 mg/dL (8.5-10.1); CO2 32 mmol/L (21-32); GLUCOSE,RANDOM 257 mg/dL (74-106); MAGNESIUM 2.2 mg/dL (1.8-2.4)
[2023-11-15 10:52] LABS: BLOOD UREA NITROGEN 117.2 mg/dL (7-18)
[2023-11-15 10:54] LABS: PHOSPHOROUS 6.6 mg/dL (2.5-4.9); SGOT/AST 44 U/L (15-37); SGPT/ALT 46 U/L (13-61)
[2023-11-15 10:56] LABS: TOT PROT 4.9 g/dl (6.4-8.2)
[2023-11-15 10:57] LABS: ALK PHOS 87 U/L (45-117)
[2023-11-15 13:09] LABS: ANISOCYTOSIS 0; MACROCYTOSIS 0; TARGET CELLS 2+
[2023-11-15] MEDS: ALBUMIN HUMAN 25% 12.5 GM/50 ML VIAL IV SCH (15:35)
[2023-11-16 07:53] LABS: POTASSIUM 4.1 mmol/L (3.5-5.1)
[2023-11-16 07:57] LABS: ALBUMIN 1.9 g/dl (3.4-5.0); CALCIUM 7.1 mg/dL (8.5-10.1); MAGNESIUM 1.9 mg/dL (1.8-2.4)
[2023-11-16 08:00] LABS: CREATININE 2.9 mg/dL (0.55-1.3); PHOSPHOROUS 5.2 mg/dL (2.5-4.9)
[2023-11-16 08:02] LABS: BILIRUBIN,TOTAL 1.1 mg/dL (0.2-1); TOT PROT 4.8 g/dl (6.4-8.2)
[2023-11-16 08:10] LABS: BASO % 0.4 % (0-2.0); EOS % 0.3 % (0-4.5); HEMATOCRIT 22.8 % (35.4-49); HEMOGLOBIN 7.4 GM/dL (11.7-16.9); MCH 30.6 pg (25.7-33.7); MCHC 32.6 g/dl (32.0-35.9); MEAN PLT VOLUME 10.1 fl (7.5-11.1); MONO % 7.7 % (3.8-10.2); NEUT % 87.6 % (42.8-82.8); PLATELET COUNT 158 10^3/uL (134-434); RBC 2.43 M/mm3 (4.00-5.60); RDW 17.1 % (11.9-15.9); WHITE BLOOD COUNT 18.9 K/mm3 (4.0-10.0)
[2023-11-16 08:11] LABS: BLOOD UREA NITROGEN 76.7 mg/dL (7-18)
[2023-11-16] MEDS ORDERED: FUROSEMIDE 40 MG/4 ML INJECTABLE VIAL ONE (16:29)
[2023-11-16] MEDS: FUROSEMIDE 40 MG/4 ML INJECTABLE VIAL IVPUSH STA (16:30)
[2023-11-17 08:50] LABS: HEMATOCRIT 23.2 % (35.4-49); HEMOGLOBIN 7.6 GM/dL (11.7-16.9); MCH 30.8 pg (25.7-33.7); MCHC 32.9 g/dl (32.0-35.9); MEAN CELL VOLUME 93.4 fl (80-96); MEAN PLT VOLUME 10.7 fl (7.5-11.1); PLATELET COUNT 186 10^3/uL (134-434); RBC 2.49 M/mm3 (4.00-5.60); RDW 16.3 % (11.9-15.9); WHITE BLOOD COUNT 13.9 K/mm3 (4.0-10.0)
[2023-11-17] MEDS: ALBUMIN HUMAN 25% 12.5 GM/50 ML VIAL IV SCH (08:50)
[2023-11-17] MEDS ORDERED: SODIUM CHLORIDE 250 ML IV PRN (08:57)
[2023-11-17 09:09] LABS: POTASSIUM 3.9 mmol/L (3.5-5.1)
[2023-11-17 09:12] LABS: CALCIUM 7.5 mg/dL (8.5-10.1)
[2023-11-17 09:13] LABS: BLOOD UREA NITROGEN 90.5 mg/dL (7-18)
[2023-11-17 09:16] LABS: CREATININE 3.4 mg/dL (0.55-1.3); PHOSPHOROUS 5.6 mg/dL (2.5-4.9)
[2023-11-17] MEDS: MELATONIN 5 MG TABLETS PO PRN (21:21)
[2023-11-18] MEDS ORDERED: SCOPOLAMINE HYDROBROMIDE 1 PATCH PATCH.TD72 TD SCH (07:15)
[2023-11-18 07:54] LABS: BASO % 0.5 % (0-2.0); EOS % 0.4 % (0-4.5); HEMATOCRIT 25.4 % (35.4-49); HEMOGLOBIN 8.3 GM/dL (11.7-16.9); LYMPH % 7.5 % (8-40); MCH 30.6 pg (25.7-33.7); MCHC 32.6 g/dl (32.0-35.9); MEAN CELL VOLUME 93.8 fl (80-96); MEAN PLT VOLUME 10.2 fl (7.5-11.1); MONO % 11.4 % (3.8-10.2); NEUT % 80.2 % (42.8-82.8); PLATELET COUNT 191 10^3/uL (134-434); RBC 2.71 M/mm3 (4.00-5.60); RDW 16.3 % (11.9-15.9); WHITE BLOOD COUNT 12.1 K/mm3 (4.0-10.0)
[2023-11-18 08:10] LABS: POTASSIUM 3.9 mmol/L (3.5-5.1)
[2023-11-18 08:14] LABS: CALCIUM 8.2 mg/dL (8.5-10.1)
[2023-11-18 08:15] LABS: BLOOD UREA NITROGEN 71.6 mg/dL (7-18); MAGNESIUM 2.1 mg/dL (1.8-2.4)
[2023-11-18 08:16] LABS: ALBUMIN 2.4 g/dl (3.4-5.0)
[2023-11-18 08:18] LABS: CREATININE 2.5 mg/dL (0.55-1.3); PHOSPHOROUS 4.3 mg/dL (2.5-4.9)
[2023-11-18 08:19] LABS: BILIRUBIN,TOTAL 1.2 mg/dL (0.2-1); TOT PROT 5.8 g/dl (6.4-8.2)
[2023-11-18 08:22] LABS: INR 1.4 (0.83-1.09); PROTHROMBIN TIME (PATIENT) 15.7 SEC (9.7-13.0)
[2023-11-18 08:24] LABS: ACTIVATED PTT 35.4 SECONDS (25.2-36.5)
[2023-11-18] MEDS: FUROSEMIDE 40 MG/4 ML INJECTABLE VIAL IVPUSH ONE (14:59)
[2023-11-19 08:14] LABS: BASO % 1.3 % (0-2.0); EOS % 0.8 % (0-4.5); HEMATOCRIT 25.2 % (35.4-49); HEMOGLOBIN 8.2 GM/dL (11.7-16.9); LYMPH % 10.7 % (8-40); MCH 30.9 pg (25.7-33.7); MCHC 32.6 g/dl (32.0-35.9); MEAN CELL VOLUME 94.8 fl (80-96); MEAN PLT VOLUME 10.9 fl (7.5-11.1); MONO % 9.7 % (3.8-10.2); NEUT % 77.5 % (42.8-82.8); PLATELET COUNT 226 10^3/uL (134-434); RBC 2.66 M/mm3 (4.00-5.60); RDW 16.3 % (11.9-15.9); WHITE BLOOD COUNT 7.8 K/mm3 (4.0-10.0)
[2023-11-19 08:23] LABS: INR 1.42 (0.83-1.09); PROTHROMBIN TIME (PATIENT) 16.2 SEC (9.7-13.0)
[2023-11-19 08:25] LABS: POTASSIUM 4.2 mmol/L (3.5-5.1)
[2023-11-19 08:26] LABS: ACTIVATED PTT 30.6 SECONDS (25.2-36.5)
[2023-11-19 08:32] LABS: ALBUMIN 2.1 g/dl (3.4-5.0); CALCIUM 8.5 mg/dL (8.5-10.1)
[2023-11-19 08:33] LABS: BLOOD UREA NITROGEN 89.4 mg/dL (7-18); MAGNESIUM 2.3 mg/dL (1.8-2.4)
[2023-11-19 08:36] LABS: CREATININE 2.8 mg/dL (0.55-1.3); PHOSPHOROUS 4.4 mg/dL (2.5-4.9)
[2023-11-19 08:37] LABS: BILIRUBIN,TOTAL 0.8 mg/dL (0.2-1); TOT PROT 5.9 g/dl (6.4-8.2)
[2023-11-19] MEDS: ALBUMIN HUMAN 25% 12.5 GM/50 ML VIAL IV SCH (10:00)
[2023-11-19] MEDS ORDERED: SODIUM CHLORIDE 250 ML IV PRN (10:00)
[2023-11-19] MEDS: SODIUM CHLORIDE 500 ML IV STA (17:30)
[2023-11-20 06:42] LABS: BASO % 1.9 % (0-2.0); EOS % 1.2 % (0-4.5); HEMATOCRIT 22.9 % (35.4-49); HEMOGLOBIN 7.5 GM/dL (11.7-16.9); LYMPH % 10.2 % (8-40); MCH 30.8 pg (25.7-33.7); MCHC 32.5 g/dl (32.0-35.9); MEAN CELL VOLUME 94.6 fl (80-96); MEAN PLT VOLUME 10.4 fl (7.5-11.1); MONO % 11.8 % (3.8-10.2); NEUT % 74.9 % (42.8-82.8); PLATELET COUNT 185 10^3/uL (134-434); RBC 2.43 M/mm3 (4.00-5.60); RDW 16.5 % (11.9-15.9)
[2023-11-20 07:00] LABS: INR 1.54 (0.83-1.09); PROTHROMBIN TIME (PATIENT) 17.5 SEC (9.7-13.0)
[2023-11-20 07:03] LABS: ACTIVATED PTT 33.4 SECONDS (25.2-36.5)
[2023-11-20 07:04] LABS: POTASSIUM 3.7 mmol/L (3.5-5.1)
[2023-11-20 07:10] LABS: BLOOD UREA NITROGEN 71.5 mg/dL (7-18)
[2023-11-20 07:13] LABS: CREATININE 2.2 mg/dL (0.55-1.3); PHOSPHOROUS 3.8 mg/dL (2.5-4.9)
[2023-11-20 07:14] LABS: BILIRUBIN,TOTAL 0.8 mg/dL (0.2-1); TOT PROT 5.5 g/dl (6.4-8.2)
[2023-11-20] MEDS ORDERED: ALBUTEROL SO4 0.083% IH SOL 2.5 MG/3 ML VIAL.NEB. NEB PRN (08:30)
[2023-11-20] MEDS ORDERED: ACETYLCYSTEINE 20% 200MG/ML 4 ML VIAL *FOR ORAL / INH USE ONLY ONE (08:51)
[2023-11-20] MEDS: ACETYLCYSTEINE 20% 200MG/ML 4 ML VIAL *FOR ORAL / INH USE ONLY NEB ONE (09:08)
[2023-11-20] MEDS: ALBUTEROL SO4 0.083% IH SOL 2.5 MG/3 ML VIAL.NEB. NEB ONE (09:09)
[2023-11-20] MEDS: FUROSEMIDE 40 MG/4 ML INJECTABLE VIAL IVPUSH ONE (10:10)
[2023-11-20] MEDS: ALBUTEROL SO4 0.083% IH SOL 2.5 MG/3 ML VIAL.NEB. NEB SCH (11:20)
[2023-11-20] MEDS: ACETYLCYSTEINE 20% 200MG/ML 4 ML VIAL *FOR ORAL / INH USE ONLY NEB SCH (11:20)
[2023-11-20] MEDS ORDERED: ALBUTEROL SO4 0.083% IH SOL 2.5 MG/3 ML VIAL.NEB. NEB SCH (12:00)
[2023-11-21 06:51] LABS: EOS % 1.4 % (0-4.5); HEMATOCRIT 19.5 % (35.4-49); LYMPH % 17.6 % (8-40); MCH 31.2 pg (25.7-33.7); MCHC 33.1 g/dl (32.0-35.9); MEAN CELL VOLUME 94.4 fl (80-96); MEAN PLT VOLUME 9.7 fl (7.5-11.1); MONO % 12.9 % (3.8-10.2); NEUT % 66.1 % (42.8-82.8); PLATELET COUNT 192 10^3/uL (134-434); RBC 2.06 M/mm3 (4.00-5.60); RDW 16.5 % (11.9-15.9); WHITE BLOOD COUNT 6.8 K/mm3 (4.0-10.0)
[2023-11-21 07:04] LABS: HEMOGLOBIN 6.4 GM/dL (11.7-16.9)
[2023-11-21 07:12] LABS: POTASSIUM 3.6 mmol/L (3.5-5.1)
[2023-11-21 07:20] LABS: ALBUMIN 1.8 g/dl (3.4-5.0); BLOOD UREA NITROGEN 92.6 mg/dL (7-18); CALCIUM 7.8 mg/dL (8.5-10.1); MAGNESIUM 2.1 mg/dL (1.8-2.4)
[2023-11-21 07:22] LABS: BILIRUBIN,TOTAL 0.7 mg/dL (0.2-1)
[2023-11-21 07:23] LABS: TOT PROT 5.4 g/dl (6.4-8.2)
[2023-11-21 07:24] LABS: CREATININE 2.6 mg/dL (0.55-1.3); PHOSPHOROUS 4.1 mg/dL (2.5-4.9)
[2023-11-21] MEDS: HEPARIN NA (PORCINE) 5,000 UNITS/ML 1ML VIAL IVPUSH ONE (07:40)
[2023-11-21] MEDS ORDERED: SODIUM CHLORIDE 250 ML IV PRN (10:00)
[2023-11-21 16:50] LABS: BASO % 2.1 % (0-2.0); EOS % 1.7 % (0-4.5); HEMATOCRIT 23.6 % (35.4-49); HEMOGLOBIN 7.8 GM/dL (11.7-16.9); LYMPH % 15.1 % (8-40); MCH 30.5 pg (25.7-33.7); MCHC 33.2 g/dl (32.0-35.9); MEAN CELL VOLUME 91.9 fl (80-96); MEAN PLT VOLUME 10.4 fl (7.5-11.1); MONO % 13.9 % (3.8-10.2); NEUT % 67.2 % (42.8-82.8); PLATELET COUNT 211 10^3/uL (134-434); RBC 2.56 M/mm3 (4.00-5.60); RDW 15.5 % (11.9-15.9); WHITE BLOOD COUNT 6.7 K/mm3 (4.0-10.0)
[2023-11-21 22:29] LABS: HEMATOCRIT 23.3 % (35.4-49); HEMOGLOBIN 7.8 GM/dL (11.7-16.9); MCH 31.6 pg (25.7-33.7); MCHC 33.6 g/dl (32.0-35.9); MEAN PLT VOLUME 10.1 fl (7.5-11.1); PLATELET COUNT 198 10^3/uL (134-434); RBC 2.48 M/mm3 (4.00-5.60); RDW 15.8 % (11.9-15.9); WHITE BLOOD COUNT 6.9 K/mm3 (4.0-10.0)
[2023-11-22 07:18] LABS: BASO % 1.7 % (0-2.0); EOS % 2.4 % (0-4.5); HEMATOCRIT 24.9 % (35.4-49); HEMOGLOBIN 8.3 GM/dL (11.7-16.9); LYMPH % 17.6 % (8-40); MCH 31.7 pg (25.7-33.7); MCHC 33.3 g/dl (32.0-35.9); MEAN CELL VOLUME 95.1 fl (80-96); MEAN PLT VOLUME 9.8 fl (7.5-11.1); MONO % 14.2 % (3.8-10.2); NEUT % 64.1 % (42.8-82.8); PLATELET COUNT 220 10^3/uL (134-434); RBC 2.62 M/mm3 (4.00-5.60); RDW 15.8 % (11.9-15.9); WHITE BLOOD COUNT 6.3 K/mm3 (4.0-10.0)
[2023-11-22 07:39] LABS: POTASSIUM 3.9 mmol/L (3.5-5.1)
[2023-11-22 07:47] LABS: BLOOD UREA NITROGEN 81.1 mg/dL (7-18); CALCIUM 8.4 mg/dL (8.5-10.1); MAGNESIUM 2.2 mg/dL (1.8-2.4)
[2023-11-22 07:49] LABS: BILIRUBIN,TOTAL 0.9 mg/dL (0.2-1); TOT PROT 6.1 g/dl (6.4-8.2)
[2023-11-22 07:50] LABS: PHOSPHOROUS 3.6 mg/dL (2.5-4.9)
[2023-11-22 07:51] LABS: CREATININE 2.7 mg/dL (0.55-1.3)
[2023-11-22 07:52] LABS: ALBUMIN 2.2 g/dl (3.4-5.0)
[2023-11-23 06:50] LABS: EOS % 4.1 % (0-4.5); HEMATOCRIT 24.5 % (35.4-49); HEMOGLOBIN 8.4 GM/dL (11.7-16.9); LYMPH % 18.7 % (8-40); MCH 33.3 pg (25.7-33.7); MCHC 34.2 g/dl (32.0-35.9); MEAN CELL VOLUME 97.2 fl (80-96); MEAN PLT VOLUME 10.2 fl (7.5-11.1); MONO % 16.5 % (3.8-10.2); NEUT % 59.7 % (42.8-82.8); PLATELET COUNT 215 10^3/uL (134-434); RBC 2.52 M/mm3 (4.00-5.60); WHITE BLOOD COUNT 6.4 K/mm3 (4.0-10.0)
[2023-11-23 06:51] LABS: POTASSIUM 3.9 mmol/L (3.5-5.1)
[2023-11-23 06:54] LABS: BLOOD UREA NITROGEN 99.5 mg/dL (7-18); MAGNESIUM 2.3 mg/dL (1.8-2.4)
[2023-11-23 06:57] LABS: CREATININE 3.1 mg/dL (0.55-1.3)
[2023-11-23 06:59] LABS: BILIRUBIN,TOTAL 0.7 mg/dL (0.2-1); TOT PROT 6.1 g/dl (6.4-8.2)
[2023-11-23] MEDS: SODIUM CHLORIDE 0.45% 1,000 ML IV SCH (10:03)
[2023-11-24 07:56] LABS: BASO % 0.9 % (0-2.0); EOS % 5.9 % (0-4.5); HEMATOCRIT 22.4 % (35.4-49); HEMOGLOBIN 7.8 GM/dL (11.7-16.9); LYMPH % 16.2 % (8-40); MCH 34.1 pg (25.7-33.7); MCHC 34.7 g/dl (32.0-35.9); MEAN CELL VOLUME 98.3 fl (80-96); MONO % 14.5 % (3.8-10.2); NEUT % 62.5 % (42.8-82.8); PLATELET COUNT 206 10^3/uL (134-434); RBC 2.27 M/mm3 (4.00-5.60); RDW 16.2 % (11.9-15.9); WHITE BLOOD COUNT 6.6 K/mm3 (4.0-10.0)
[2023-11-24 08:14] LABS: CHLORIDE 110 mmol/L (98-107); POTASSIUM 3.9 mmol/L (3.5-5.1); SODIUM 148 mmol/L (136-145)
[2023-11-24 08:22] LABS: ALBUMIN 1.9 g/dl (3.4-5.0); ANION GAP 6 mmol/L (4-13); CO2 31 mmol/L (21-32); GLUCOSE,RANDOM 76 mg/dL (74-106); MAGNESIUM 2.4 mg/dL (1.8-2.4)
[2023-11-24 08:24] LABS: SGOT/AST 156 U/L (15-37); SGPT/ALT 94 U/L (13-61)
[2023-11-24 08:26] LABS: BILIRUBIN,TOTAL 0.8 mg/dL (0.2-1)
[2023-11-24 08:27] LABS: ALK PHOS 129 U/L (45-117); BLOOD UREA NITROGEN 116.5 mg/dL (7-18)
[2023-11-24] MEDS ORDERED: SODIUM CHLORIDE 250 ML IV PRN (09:32)
[2023-11-25 06:52] LABS: BASO % 0.5 % (0-2.0); EOS % 5.2 % (0-4.5); HEMATOCRIT 20.6 % (35.4-49); HEMOGLOBIN 7.2 GM/dL (11.7-16.9); LYMPH % 15.4 % (8-40); MCH 35.5 pg (25.7-33.7); MCHC 35.2 g/dl (32.0-35.9); MEAN CELL VOLUME 100.9 fl (80-96); MONO % 15.2 % (3.8-10.2); NEUT % 63.7 % (42.8-82.8); PLATELET COUNT 212 10^3/uL (134-434); RBC 2.04 M/mm3 (4.00-5.60); WHITE BLOOD COUNT 7.3 K/mm3 (4.0-10.0)
[2023-11-25 07:06] LABS: POTASSIUM 3.6 mmol/L (3.5-5.1)
[2023-11-25 07:12] LABS: ALBUMIN 1.8 g/dl (3.4-5.0); CALCIUM 7.7 mg/dL (8.5-10.1); MAGNESIUM 2.2 mg/dL (1.8-2.4)
[2023-11-25 07:13] LABS: CREATININE 2.3 mg/dL (0.55-1.3); PHOSPHOROUS 3.2 mg/dL (2.5-4.9)
[2023-11-25 07:15] LABS: BILIRUBIN,TOTAL 0.7 mg/dL (0.2-1)
[2023-11-25] MEDS ORDERED: MIDAZOLAM HCL 2 MG/2 ML SINGLE DOSE VIAL ONE (14:49)
[2023-11-25] MEDS ORDERED: fentaNYL CITRATE 250 MCG/5 ML VIAL ONE (14:50)
[2023-11-25] MEDS: FENTANYL CITRATE/PF 50 MCG/ML VIAL IVPUSH ONE ×2 (14:52→20:39)
[2023-11-25] MEDS: MIDAZOLAM HCL 5 MG/1 ML Single Dose Vial IVPUSH ONE (14:52)
[2023-11-25] MEDS: MIDODRINE HCL 5 MG TABLET PO SCH (17:23)
[2023-11-25 19:21] LABS: BF WBC & OTHER NUCLEATED CELLS 878 /mm3
[2023-11-25] MEDS: MIDAZOLAM HCL 2 MG/2 ML SINGLE DOSE VIAL IVPUSH ONE (20:39)
[2023-11-25 20:42] LABS: BODY FLUID MONOCYTE 5 %; BODYL FLD EOSINOPHIL 1 %
[2023-11-25 20:43] LABS: BODY FLUID MACROPHAGES 2 %
[2023-11-26 06:54] LABS: ALBUMIN 1.8 g/dl (3.4-5.0); BLOOD UREA NITROGEN 93.8 mg/dL (7-18); CALCIUM 7.8 mg/dL (8.5-10.1)
[2023-11-26 06:57] LABS: CREATININE 2.4 mg/dL (0.55-1.3)
[2023-11-26 06:58] LABS: PHOSPHOROUS 4.7 mg/dL (2.5-4.9)
[2023-11-26 06:59] LABS: BILIRUBIN,TOTAL 0.8 mg/dL (0.2-1); TOT PROT 5.9 g/dl (6.4-8.2)
[2023-11-26 07:17] LABS: HEMATOCRIT 22.4 % (35.4-49); MCHC 35.9 g/dl (32.0-35.9); MEAN PLT VOLUME 9.7 fl (7.5-11.1); PLATELET COUNT 244 10^3/uL (134-434); RBC 2.17 M/mm3 (4.00-5.60); RDW 16.7 % (11.9-15.9); WHITE BLOOD COUNT 9.2 K/mm3 (4.0-10.0)
[2023-11-26] MEDS ORDERED: EPOETIN ALFA-EPBX 10,000 UNIT/ML VIAL SQ ONE (09:47)
[2023-11-26] MEDS ORDERED: SODIUM CHLORIDE 250 ML IV PRN (09:47)
[2023-11-26] MEDS: FENTANYL CITRATE/PF 50 MCG/ML VIAL IVPUSH ONE (14:02)
[2023-11-26 14:09] LABS: BODY FLUID ALBUMIN 1.7 g/dL (Not Estab.)
[2023-11-27 06:54] LABS: HEMATOCRIT 19.5 % (35.4-49); MCH 36.2 pg (25.7-33.7); MCHC 35.6 g/dl (32.0-35.9); MEAN CELL VOLUME 101.7 fl (80-96); MEAN PLT VOLUME 9.5 fl (7.5-11.1); PLATELET COUNT 304 10^3/uL (134-434); RBC 1.92 M/mm3 (4.00-5.60); RDW 16.6 % (11.9-15.9); WHITE BLOOD COUNT 9.2 K/mm3 (4.0-10.0)
[2023-11-27 07:15] LABS: POTASSIUM 3.8 mmol/L (3.5-5.1)
[2023-11-27 07:26] LABS: ALBUMIN 1.7 g/dl (3.4-5.0); CALCIUM 7.7 mg/dL (8.5-10.1); CREATININE 2.4 mg/dL (0.55-1.3); MAGNESIUM 2.2 mg/dL (1.8-2.4)
[2023-11-27 07:27] LABS: BLOOD UREA NITROGEN 96.4 mg/dL (7-18)
[2023-11-27 07:28] LABS: BILIRUBIN,TOTAL 0.4 mg/dL (0.2-1); TOT PROT 5.8 g/dl (6.4-8.2)
[2023-11-27 07:29] LABS: PHOSPHOROUS 3.7 mg/dL (2.5-4.9)
[2023-11-27] MEDS: FUROSEMIDE 40 MG/4 ML INJECTABLE VIAL IVPUSH ONE (10:18)
[2023-11-27] MEDS: PROPOFOL 1,000,000 MCG/100 ML VIAL IVPB SCH (10:37)
[2023-11-27] MEDS: FENTANYL NS IVPB 500 MCG/100 ML BAG IVPB SCH (10:38)
[2023-11-27] MEDS: SEVELAMER CARBONATE 0.8 GM POWDER PACKET PO SCH (18:25)
[2023-11-27 22:56] LABS: HEMATOCRIT 23.8 % (35.4-49); HEMOGLOBIN 7.8 GM/dL (11.7-16.9); MCH 30.5 pg (25.7-33.7); MCHC 32.9 g/dl (32.0-35.9); MEAN CELL VOLUME 92.7 fl (80-96); MEAN PLT VOLUME 9.3 fl (7.5-11.1); PLATELET COUNT 367 10^3/uL (134-434); RBC 2.57 M/mm3 (4.00-5.60); RDW 18.1 % (11.9-15.9); WHITE BLOOD COUNT 10.4 K/mm3 (4.0-10.0)
[2023-11-28 06:10] LABS: HEMATOCRIT 23.2 % (35.4-49); HEMOGLOBIN 7.8 GM/dL (11.7-16.9); MCH 32.1 pg (25.7-33.7); MCHC 33.7 g/dl (32.0-35.9); MEAN CELL VOLUME 95.1 fl (80-96); MEAN PLT VOLUME 9.3 fl (7.5-11.1); PLATELET COUNT 378 10^3/uL (134-434); RBC 2.44 M/mm3 (4.00-5.60); RDW 18.9 % (11.9-15.9); WHITE BLOOD COUNT 10.6 K/mm3 (4.0-10.0)
[2023-11-28 06:29] LABS: POTASSIUM 3.5 mmol/L (3.5-5.1)
[2023-11-28 06:32] LABS: ALBUMIN 1.6 g/dl (3.4-5.0); BLOOD UREA NITROGEN 94.6 mg/dL (7-18); MAGNESIUM 2.2 mg/dL (1.8-2.4)
[2023-11-28 06:34] LABS: CREATININE 2.4 mg/dL (0.55-1.3)
[2023-11-28 06:35] LABS: PHOSPHOROUS 3.6 mg/dL (2.5-4.9)
[2023-11-28 06:36] LABS: BILIRUBIN,TOTAL 0.7 mg/dL (0.2-1); TOT PROT 5.6 g/dl (6.4-8.2)
[2023-11-28] MEDS: FUROSEMIDE 40 MG/4 ML INJECTABLE VIAL IVPUSH ONE (12:42)
[2023-11-28] MEDS ORDERED: INSULIN ASPART SLIDING SCALE (NOVOLOG) 1 VIAL SQ ONE (18:46)
[2023-11-28] MEDS ORDERED: INSULIN (LEVEMIR) 100 UNITS/ML UNITS SQ ONE (18:46)
[2023-11-28] MEDS: ALBUMIN HUMAN 5% 250 ML IV SOLUTION IV ONE (22:41)
[2023-11-29 06:12] LABS: HEMOGLOBIN 7.7 GM/dL (11.7-16.9); MCH 31.9 pg (25.7-33.7); MCHC 33.5 g/dl (32.0-35.9); MEAN CELL VOLUME 95.3 fl (80-96); MEAN PLT VOLUME 9.2 fl (7.5-11.1); PLATELET COUNT 404 10^3/uL (134-434); RBC 2.41 M/mm3 (4.00-5.60); RDW 18.7 % (11.9-15.9); WHITE BLOOD COUNT 12.1 K/mm3 (4.0-10.0)
[2023-11-29 06:29] LABS: CHLORIDE 111 mmol/L (98-107); POTASSIUM 3.8 mmol/L (3.5-5.1); SODIUM 148 mmol/L (136-145)
[2023-11-29 06:31] LABS: ANION GAP 5 mmol/L (4-13); CALCIUM 8.3 mg/dL (8.5-10.1); CO2 32 mmol/L (21-32)
[2023-11-29 06:32] LABS: GLUCOSE,RANDOM 133 mg/dL (74-106); MAGNESIUM 2.1 mg/dL (1.8-2.4)
[2023-11-29 06:34] LABS: BLOOD UREA NITROGEN 112.6 mg/dL (7-18); CREATININE 2.6 mg/dL (0.55-1.3); SGOT/AST 60 U/L (15-37); SGPT/ALT 50 U/L (13-61)
[2023-11-29 06:35] LABS: PHOSPHOROUS 3.5 mg/dL (2.5-4.9)
[2023-11-29 06:36] LABS: BILIRUBIN,TOTAL 0.5 mg/dL (0.2-1); TOT PROT 6.1 g/dl (6.4-8.2)
[2023-11-29 06:37] LABS: ALK PHOS 129 U/L (45-117)
[2023-11-29] MEDS: FUROSEMIDE INJECTION 100 MG in DEXTROSE 5%-WATER - 90 ML IVPB SCH (11:54)
[2023-11-30] MEDS ORDERED: DEXTROSE 50%-WATER 25 GM/50 ML DISP.SYRIN ONE (05:53)
[2023-11-30] MEDS: DEXTROSE 50%-WATER 25 GM/50 ML DISP.SYRIN IVPUSH ONE (07:13)
[2023-11-30 07:29] LABS: BASO % 1.2 % (0-2.0); EOS % 5.8 % (0-4.5); HEMATOCRIT 21.8 % (35.4-49); HEMOGLOBIN 7.5 GM/dL (11.7-16.9); MCH 33.4 pg (25.7-33.7); MCHC 34.3 g/dl (32.0-35.9); MEAN CELL VOLUME 97.2 fl (80-96); MONO % 10.4 % (3.8-10.2); NEUT % 69.6 % (42.8-82.8); PLATELET COUNT 516 10^3/uL (134-434); RBC 2.25 M/mm3 (4.00-5.60); RDW 18.7 % (11.9-15.9); WHITE BLOOD COUNT 12.3 K/mm3 (4.0-10.0)
[2023-11-30 07:39] LABS: CHLORIDE 110 mmol/L (98-107); POTASSIUM 3.7 mmol/L (3.5-5.1); SODIUM 147 mmol/L (136-145)
[2023-11-30 07:44] LABS: ALBUMIN 1.8 g/dl (3.4-5.0); ANION GAP 5 mmol/L (4-13); CO2 31 mmol/L (21-32); GLUCOSE,RANDOM 185 mg/dL (74-106); MAGNESIUM 2.1 mg/dL (1.8-2.4)
[2023-11-30 07:46] LABS: CREATININE 2.7 mg/dL (0.55-1.3); SGOT/AST 41 U/L (15-37); SGPT/ALT 39 U/L (13-61)
[2023-11-30 07:47] LABS: BILIRUBIN,TOTAL 0.6 mg/dL (0.2-1)
[2023-11-30 07:49] LABS: ALK PHOS 107 U/L (45-117)
[2023-11-30] MEDS: FUROSEMIDE INJECTION 100 MG in DEXTROSE 5%-WATER - 90 ML IVPB SCH (09:32)
[2023-12-01 06:41] LABS: CHLORIDE 111 mmol/L (98-107); POTASSIUM 3.6 mmol/L (3.5-5.1); SODIUM 148 mmol/L (136-145)
[2023-12-01 06:46] LABS: CALCIUM 8.4 mg/dL (8.5-10.1)
[2023-12-01 06:47] LABS: ALBUMIN 1.8 g/dl (3.4-5.0); ANION GAP 3 mmol/L (4-13); CO2 34 mmol/L (21-32); GLUCOSE,RANDOM 155 mg/dL (74-106); MAGNESIUM 2.1 mg/dL (1.8-2.4)
[2023-12-01 06:48] LABS: CREATININE 2.9 mg/dL (0.55-1.3)
[2023-12-01 06:49] LABS: SGPT/ALT 45 U/L (13-61)
[2023-12-01 06:50] LABS: BILIRUBIN,TOTAL 0.4 mg/dL (0.2-1); SGOT/AST 56 U/L (15-37); TOT PROT 6.3 g/dl (6.4-8.2)
[2023-12-01 06:51] LABS: ALK PHOS 129 U/L (45-117)
[2023-12-01 06:57] LABS: BASO % 1.1 % (0-2.0); EOS % 4.9 % (0-4.5); HEMATOCRIT 21.6 % (35.4-49); HEMOGLOBIN 7.4 GM/dL (11.7-16.9); LYMPH % 14.5 % (8-40); MCH 33.3 pg (25.7-33.7); MCHC 34.5 g/dl (32.0-35.9); MEAN CELL VOLUME 96.6 fl (80-96); MEAN PLT VOLUME 8.6 fl (7.5-11.1); MONO % 11.3 % (3.8-10.2); NEUT % 68.2 % (42.8-82.8); PLATELET COUNT 609 10^3/uL (134-434); RBC 2.24 M/mm3 (4.00-5.60); RDW 17.9 % (11.9-15.9); WHITE BLOOD COUNT 12.9 K/mm3 (4.0-10.0)
[2023-12-01 07:28] LABS: INR 1.46 (0.83-1.09); PROTHROMBIN TIME (PATIENT) 16.3 SEC (9.7-13.0)
[2023-12-01] MEDS: ACETAMINOPHEN 1000 MG/100 ML BAG IVPB PRN (12:05)
[2023-12-02 06:55] LABS: BASO % 0.6 % (0-2.0); EOS % 3.6 % (0-4.5); HEMATOCRIT 22.5 % (35.4-49); HEMOGLOBIN 7.6 GM/dL (11.7-16.9); MCH 32.8 pg (25.7-33.7); MEAN CELL VOLUME 96.4 fl (80-96); MEAN PLT VOLUME 8.3 fl (7.5-11.1); MONO % 8.8 % (3.8-10.2); PLATELET COUNT 687 10^3/uL (134-434); RBC 2.33 M/mm3 (4.00-5.60); RDW 17.8 % (11.9-15.9); WHITE BLOOD COUNT 13.3 K/mm3 (4.0-10.0)
[2023-12-02 07:10] LABS: CHLORIDE 112 mmol/L (98-107); POTASSIUM 3.7 mmol/L (3.5-5.1); SODIUM 151 mmol/L (136-145)
[2023-12-02 07:14] LABS: ANION GAP 2 mmol/L (4-13); CO2 37 mmol/L (21-32)
[2023-12-02 07:15] LABS: CALCIUM 8.3 mg/dL (8.5-10.1); GLUCOSE,RANDOM 131 mg/dL (74-106); MAGNESIUM 2.2 mg/dL (1.8-2.4)
[2023-12-02 07:17] LABS: ALBUMIN 1.7 g/dl (3.4-5.0); PHOSPHOROUS 3.3 mg/dL (2.5-4.9); SGOT/AST 45 U/L (15-37); SGPT/ALT 43 U/L (13-61)
[2023-12-02 07:18] LABS: CREATININE 2.7 mg/dL (0.55-1.3)
[2023-12-02 07:19] LABS: BILIRUBIN,TOTAL 0.4 mg/dL (0.2-1)
[2023-12-02 07:20] LABS: ALK PHOS 132 U/L (45-117)
[2023-12-02 07:21] LABS: TOT PROT 6.2 g/dl (6.4-8.2)
[2023-12-03 06:41] LABS: HEMATOCRIT 22.2 % (35.4-49); HEMOGLOBIN 7.2 GM/dL (11.7-16.9); MCH 30.9 pg (25.7-33.7); MCHC 32.5 g/dl (32.0-35.9); MEAN CELL VOLUME 95.1 fl (80-96); MEAN PLT VOLUME 8.3 fl (7.5-11.1); PLATELET COUNT 706 10^3/uL (134-434); RBC 2.33 M/mm3 (4.00-5.60); RDW 17.7 % (11.9-15.9); WHITE BLOOD COUNT 15.7 K/mm3 (4.0-10.0)
[2023-12-03 06:59] LABS: CHLORIDE 110 mmol/L (98-107); POTASSIUM 3.3 mmol/L (3.5-5.1); SODIUM 150 mmol/L (136-145)
[2023-12-03 07:04] LABS: CALCIUM 8.5 mg/dL (8.5-10.1)
[2023-12-03 07:05] LABS: ALBUMIN 1.8 g/dl (3.4-5.0); ANION GAP 4 mmol/L (4-13); CO2 36 mmol/L (21-32); GLUCOSE,RANDOM 164 mg/dL (74-106); MAGNESIUM 2.2 mg/dL (1.8-2.4)
[2023-12-03 07:08] LABS: CREATININE 2.6 mg/dL (0.55-1.3); PHOSPHOROUS 2.8 mg/dL (2.5-4.9); SGOT/AST 42 U/L (15-37); SGPT/ALT 38 U/L (13-61)
[2023-12-03 07:09] LABS: BILIRUBIN,TOTAL 0.4 mg/dL (0.2-1); TOT PROT 6.2 g/dl (6.4-8.2)
[2023-12-03 07:10] LABS: ALK PHOS 144 U/L (45-117)
[2023-12-03 07:37] LABS: BLOOD UREA NITROGEN 118.8 mg/dL (7-18)
[2023-12-03 08:40] LABS: IRON SERUM 10 ug/dL (50-175)
[2023-12-03 08:42] LABS: TOTAL IRON BINDING CAPACITY 134 ug/dL (250-450)
[2023-12-03] MEDS: KCL 10 MEQ IVPB 10 MEQ/100 ML INFUS.BAG IVPB SCH (09:47)
[2023-12-03 11:34] LABS: RETICULOCYTES 1.29 % (0.5-1.5)
[2023-12-04 08:34] LABS: HEMATOCRIT 23.1 % (35.4-49); HEMOGLOBIN 7.8 GM/dL (11.7-16.9); MCH 32.3 pg (25.7-33.7); MCHC 33.6 g/dl (32.0-35.9); MEAN PLT VOLUME 8.2 fl (7.5-11.1); PLATELET COUNT 780 10^3/uL (134-434); RDW 17.1 % (11.9-15.9)
[2023-12-04 08:51] LABS: CHLORIDE 111 mmol/L (98-107); POTASSIUM 3.7 mmol/L (3.5-5.1); SODIUM 149 mmol/L (136-145)
[2023-12-04 08:58] LABS: CALCIUM 8.9 mg/dL (8.5-10.1)
[2023-12-04 08:59] LABS: ALBUMIN 1.9 g/dl (3.4-5.0); ANION GAP 2 mmol/L (4-13); CO2 36 mmol/L (21-32); GLUCOSE,RANDOM 90 mg/dL (74-106); MAGNESIUM 2.3 mg/dL (1.8-2.4)
[2023-12-04 09:01] LABS: SGPT/ALT 36 U/L (13-61)
[2023-12-04 09:02] LABS: CREATININE 2.6 mg/dL (0.55-1.3); PHOSPHOROUS 2.8 mg/dL (2.5-4.9); SGOT/AST 39 U/L (15-37)
[2023-12-04 09:03] LABS: BILIRUBIN,TOTAL 0.6 mg/dL (0.2-1)
[2023-12-04 09:04] LABS: ALK PHOS 132 U/L (45-117); TOT PROT 6.9 g/dl (6.4-8.2)
[2023-12-04 09:07] LABS: BLOOD UREA NITROGEN 113.8 mg/dL (7-18)
[2023-12-04] MEDS: ROCURONIUM BROMIDE 50 MG/5 ML VIAL IVPUSH ONE (09:18)
[2023-12-04] MEDS: MIDAZOLAM HCL 5 MG/1 ML Single Dose Vial IVPUSH ONE (09:30)
[2023-12-04] MEDS ORDERED: MIDAZOLAM HCL 2 MG/2 ML SINGLE DOSE VIAL IVPUSH ONE (09:33)
[2023-12-04] MEDS ORDERED: MIDAZOLAM HCL 5 MG/1 ML Single Dose Vial ONE (09:34)
[2023-12-04] MEDS ORDERED: DEXTROSE 50%-WATER 25 GM/50 ML DISP.SYRIN ONE (11:08)
[2023-12-04] MEDS: DEXTROSE 50%-WATER 25 GM/50 ML DISP.SYRIN IVPUSH ONE (11:14)
[2023-12-05 07:49] LABS: HEMATOCRIT 22.6 % (35.4-49); HEMOGLOBIN 7.1 GM/dL (11.7-16.9); MCH 28.8 pg (25.7-33.7); MCHC 31.2 g/dl (32.0-35.9); MEAN CELL VOLUME 92.4 fl (80-96); MEAN PLT VOLUME 8.2 fl (7.5-11.1); PLATELET COUNT 773 10^3/uL (134-434); RBC 2.45 M/mm3 (4.00-5.60); RDW 17.1 % (11.9-15.9); WHITE BLOOD COUNT 18.3 K/mm3 (4.0-10.0)
[2023-12-05 07:59] LABS: POTASSIUM 3.7 mmol/L (3.5-5.1)
[2023-12-05 08:03] LABS: ALBUMIN 1.8 g/dl (3.4-5.0); MAGNESIUM 2.4 mg/dL (1.8-2.4)
[2023-12-05 08:04] LABS: BLOOD UREA NITROGEN 81.7 mg/dL (7-18); CALCIUM 9.2 mg/dL (8.5-10.1)
[2023-12-05 08:05] LABS: CREATININE 2.6 mg/dL (0.55-1.3)
[2023-12-05 08:07] LABS: BILIRUBIN,TOTAL 0.8 mg/dL (0.2-1); TOT PROT 6.7 g/dl (6.4-8.2)
[2023-12-05 09:49] LABS: INR 1.45 (0.83-1.09); PROTHROMBIN TIME (PATIENT) 16.5 SEC (9.7-13.0)
[2023-12-05 09:52] LABS: ACTIVATED PTT 43.8 SECONDS (25.2-36.5)
[2023-12-05 10:51] LABS: ANISOCYTOSIS 1+; MACROCYTOSIS 0
[2023-12-05] MEDS: IRON SUCROSE INJECTION 200 MG in SODIUM CHLORIDE 100 ML IVPB ONE (13:00)
[2023-12-05] MEDS: DOXAZOSIN MESYLATE 1 MG TABLET NGT SCH (13:41)
[2023-12-05] MEDS: TAMSULOSIN HCL 0.4 MG CAP PO ONE (13:41)
[2023-12-05] MEDS ORDERED: BISACODYL 10 MG SUPP.RECT PR PRN (15:07)
[2023-12-05] MEDS ORDERED: CEFEPIME HCL 1 GM VIAL (RESTRICTED TO ID) IVPB SCH (15:55)
[2023-12-05] MEDS: CEFEPIME 1 GM in DEXTROSE 5%-WATER 100 ML IVPB SCH (16:16)
[2023-12-05] MEDS: VANCOMYCIN/WATER FOR INJ (PEG) 1,000 MG/200 ML BAG IVPB ONE (16:16)
[2023-12-05] MEDS: POLYETHYLENE GLYCOL (HEALTHYLAX) 3350 17 GM PACKET PO SCH (21:12)
[2023-12-05] MEDS: SENNOSIDES 8.8 MG/5 ML SYRUP PO SCH (21:13)
[2023-12-06] MEDS ORDERED: TAMSULOSIN HCL 0.4 MG CAP PO SCH (08:30)
[2023-12-06 08:46] LABS: HEMOGLOBIN 7.4 GM/dL (11.7-16.9); MCH 29.6 pg (25.7-33.7); MEAN CELL VOLUME 92.6 fl (80-96); PLATELET COUNT 802 10^3/uL (134-434); RBC 2.49 M/mm3 (4.00-5.60); RDW 17.9 % (11.9-15.9); WHITE BLOOD COUNT 23.3 K/mm3 (4.0-10.0)
[2023-12-06 09:22] LABS: CHLORIDE 111 mmol/L (98-107); POTASSIUM 3.7 mmol/L (3.5-5.1); SODIUM 151 mmol/L (136-145)
[2023-12-06 09:23] LABS: ANISOCYTOSIS 2+; MACROCYTOSIS 0
[2023-12-06 09:27] LABS: BLOOD UREA NITROGEN 108.8 mg/dL (7-18)
[2023-12-06 09:28] LABS: ANION GAP 8 mmol/L (4-13); CALCIUM 8.6 mg/dL (8.5-10.1); CO2 32 mmol/L (21-32)
[2023-12-06 09:30] LABS: GLUCOSE,RANDOM 175 mg/dL (74-106); MAGNESIUM 2.4 mg/dL (1.8-2.4)
[2023-12-06 09:32] LABS: CREATININE 2.8 mg/dL (0.55-1.3); PHOSPHOROUS 3.8 mg/dL (2.5-4.9); SGOT/AST 53 U/L (15-37); SGPT/ALT 38 U/L (13-61)
[2023-12-06 09:33] LABS: BILIRUBIN,TOTAL 0.6 mg/dL (0.2-1); TOT PROT 7.2 g/dl (6.4-8.2)
[2023-12-06 09:35] LABS: ALK PHOS 134 U/L (45-117)
[2023-12-06 11:01] LABS: IRON SERUM 28 ug/dL (50-175)
[2023-12-06 11:02] LABS: TOTAL IRON BINDING CAPACITY 128 ug/dL (250-450)
[2023-12-06] MEDS ORDERED: CEFEPIME HCL 1 GM VIAL (RESTRICTED TO ID) IVPB SCH (15:30)
[2023-12-06] MEDS: VANCOMYCIN/WATER FOR INJ (PEG) 1,000 MG/200 ML BAG IVPB ONE (17:16)
[2023-12-06] MEDS: CEFEPIME 1 GM in DEXTROSE 5%-WATER 100 ML IVPB SCH (17:16)
[2023-12-07 08:10] LABS: HEMATOCRIT 21.8 % (35.4-49); MCH 30.5 pg (25.7-33.7); MCHC 32.2 g/dl (32.0-35.9); MEAN CELL VOLUME 94.8 fl (80-96); PLATELET COUNT 742 10^3/uL (134-434); RDW 17.5 % (11.9-15.9); WHITE BLOOD COUNT 23.1 K/mm3 (4.0-10.0)
[2023-12-07 08:16] LABS: POTASSIUM 3.7 mmol/L (3.5-5.1)
[2023-12-07 08:19] LABS: ALBUMIN 1.8 g/dl (3.4-5.0); CALCIUM 8.3 mg/dL (8.5-10.1); MAGNESIUM 2.3 mg/dL (1.8-2.4)
[2023-12-07 08:22] LABS: CREATININE 2.8 mg/dL (0.55-1.3)
[2023-12-07 08:24] LABS: BILIRUBIN,TOTAL 0.5 mg/dL (0.2-1); TOT PROT 6.8 g/dl (6.4-8.2)
[2023-12-07 08:53] LABS: ANISOCYTOSIS 3+; MACROCYTOSIS 0
[2023-12-07] MEDS: CEFEPIME 1 GM in DEXTROSE 5%-WATER 100 ML IVPB SCH (15:39)
[2023-12-07] MEDS ORDERED: INSULIN ASPART SLIDING SCALE (NOVOLOG) 1 VIAL SQ ONE (18:06)
[2023-12-07] MEDS ORDERED: INSULIN (LEVEMIR) 100 UNITS/ML UNITS SQ ONE (18:06)
[2023-12-07] MEDS: ACETAMINOPHEN 325 MG TABLET (FP) PO PRN (21:57)
[2023-12-07] MEDS ORDERED: BISACODYL 10 MG SUPP.RECT PR PRN (23:23)
[2023-12-08] MEDS: CEFEPIME 1 GM in DEXTROSE 5%-WATER 100 ML IVPB SCH (03:31)
[2023-12-08] MEDS: INSULIN ASPART SLIDING SCALE (NOVOLOG) 1 VIAL SQ SCH (06:31)
[2023-12-08] MEDS: INSULIN (LEVEMIR) 100 UNITS/ML UNITS SQ SCH ×2 (06:32→23:22)
[2023-12-08 07:27] LABS: HEMATOCRIT 20.8 % (35.4-49); MCH 29.1 pg (25.7-33.7); MCHC 31.5 g/dl (32.0-35.9); MEAN CELL VOLUME 92.5 fl (80-96); MEAN PLT VOLUME 8.1 fl (7.5-11.1); PLATELET COUNT 708 10^3/uL (134-434); RBC 2.25 M/mm3 (4.00-5.60); RDW 17.4 % (11.9-15.9); WHITE BLOOD COUNT 23.6 K/mm3 (4.0-10.0)
[2023-12-08 07:39] LABS: HEMOGLOBIN 6.5 GM/dL (11.7-16.9)
[2023-12-08 07:42] LABS: POTASSIUM 3.5 mmol/L (3.5-5.1)
[2023-12-08 07:44] LABS: CALCIUM 8.5 mg/dL (8.5-10.1)
[2023-12-08 07:45] LABS: ALBUMIN 1.7 g/dl (3.4-5.0); BLOOD UREA NITROGEN 95.9 mg/dL (7-18); MAGNESIUM 2.4 mg/dL (1.8-2.4)
[2023-12-08 07:48] LABS: CREATININE 2.6 mg/dL (0.55-1.3)
[2023-12-08 07:50] LABS: BILIRUBIN,TOTAL 0.4 mg/dL (0.2-1); TOT PROT 6.5 g/dl (6.4-8.2)
[2023-12-08 08:58] LABS: ANISOCYTOSIS 0; MACROCYTOSIS 0
[2023-12-08] MEDS: MIDODRINE HCL 5 MG TABLET PO SCH (09:06)
[2023-12-08] MEDS: DOXAZOSIN MESYLATE 1 MG TABLET NGT SCH (09:08)
[2023-12-08] MEDS: FOLIC ACID 1 MG TABLET (FP) NGT SCH (09:08)
[2023-12-08] MEDS: THIAMINE 100 MG TABLET NGT SCH (09:08)
[2023-12-08] MEDS: SEVELAMER CARBONATE 0.8 GM POWDER PACKET NGT SCH (09:09)
[2023-12-08] MEDS: POLYETHYLENE GLYCOL (HEALTHYLAX) 3350 17 GM PACKET NGT SCH (09:09)
[2023-12-08] MEDS: PANTOPRAZOLE SODIUM 40 MG VIAL IVPUSH SCH (09:09)
[2023-12-08] MEDS ORDERED: SENNOSIDES 8.8 MG/5 ML SYRUP NGT SCH (22:00)
[2023-12-08] MEDS: MELATONIN 5 MG TABLETS NGT PRN (23:23)
[2023-12-09 07:00] LABS: HEMATOCRIT 23.7 % (35.4-49); HEMOGLOBIN 7.7 GM/dL (11.7-16.9); MCH 29.8 pg (25.7-33.7); MCHC 32.3 g/dl (32.0-35.9); MEAN CELL VOLUME 92.4 fl (80-96); MEAN PLT VOLUME 7.9 fl (7.5-11.1); PLATELET COUNT 646 10^3/uL (134-434); RBC 2.57 M/mm3 (4.00-5.60); RDW 16.7 % (11.9-15.9); WHITE BLOOD COUNT 22.6 K/mm3 (4.0-10.0)
[2023-12-09 07:14] LABS: INR 1.4 (0.83-1.09); PROTHROMBIN TIME (PATIENT) 15.7 SEC (9.7-13.0)
[2023-12-09 07:16] LABS: POTASSIUM 3.4 mmol/L (3.5-5.1)
[2023-12-09 07:23] LABS: ALBUMIN 1.8 g/dl (3.4-5.0); BLOOD UREA NITROGEN 88.2 mg/dL (7-18); CALCIUM 8.5 mg/dL (8.5-10.1); MAGNESIUM 2.4 mg/dL (1.8-2.4)
[2023-12-09 07:27] LABS: CREATININE 2.4 mg/dL (0.55-1.3)
[2023-12-09 07:28] LABS: BILIRUBIN,TOTAL 0.5 mg/dL (0.2-1); TOT PROT 6.7 g/dl (6.4-8.2)
[2023-12-09 08:48] LABS: ANISOCYTOSIS 2+; MACROCYTOSIS 0
[2023-12-09] MEDS: PANTOPRAZOLE SODIUM 40 MG VIAL IVPUSH SCH (09:01)
[2023-12-09 09:22] LABS: ACTIVATED PTT 38.4 SECONDS (25.2-36.5)
[2023-12-09] MEDS ORDERED: DEXTROSE 50%-WATER 25 GM/50 ML DISP.SYRIN ONE (11:37)
[2023-12-09] MEDS: DEXTROSE 50%-WATER 25 GM/50 ML DISP.SYRIN IVPUSH PRN (11:42)
[2023-12-09] MEDS: POTASSIUM CHLORIDE ORAL LIQUID 20 MEQ/15 ML PO ONE (11:43)
[2023-12-09] MEDS: POTASSIUM CHLORIDE 20 MEQ in DEXTROSE 5%-WATER - 1,000 ML IV SCH (13:44)
[2023-12-09] MEDS: KCL 10 MEQ IVPB 10 MEQ/100 ML INFUS.BAG IVPB SCH (13:47)
[2023-12-10 10:14] LABS: HEMATOCRIT 27.4 % (35.4-49); HEMOGLOBIN 8.5 GM/dL (11.7-16.9); MCH 27.9 pg (25.7-33.7); MCHC 30.9 g/dl (32.0-35.9); MEAN CELL VOLUME 90.2 fl (80-96); PLATELET COUNT 720 10^3/uL (134-434); RBC 3.03 M/mm3 (4.00-5.60)
[2023-12-10 10:19] LABS: INR 1.4 (0.83-1.09); PROTHROMBIN TIME (PATIENT) 15.7 SEC (9.7-13.0)
[2023-12-10 10:34] LABS: CALCIUM 8.8 mg/dL (8.5-10.1)
[2023-12-10 10:35] LABS: ALBUMIN 1.9 g/dl (3.4-5.0); BLOOD UREA NITROGEN 77.5 mg/dL (7-18)
[2023-12-10 10:38] LABS: CREATININE 2.3 mg/dL (0.55-1.3)
[2023-12-10 10:39] LABS: BILIRUBIN,TOTAL 0.7 mg/dL (0.2-1)
[2023-12-10 10:40] LABS: TOT PROT 7.5 g/dl (6.4-8.2)
[2023-12-10 10:58] LABS: ANISOCYTOSIS 0; MACROCYTOSIS 0
[2023-12-10 14:31] LABS: MAGNESIUM 2.4 mg/dL (1.8-2.4)
[2023-12-10 14:35] LABS: PHOSPHOROUS 2.2 mg/dL (2.5-4.9)
[2023-12-10] MEDS: METOPROLOL TARTRATE 25 MG TABLET (FP) PO SCH (17:57)
[2023-12-10] MEDS: INSULIN (LEVEMIR) 100 UNITS/ML UNITS SQ SCH (21:31)
[2023-12-10] MEDS: CASPOFUNGIN ACETATE 70 MG in SODIUM CHLORIDE 250 ML IVPB ONE (23:58)
[2023-12-11 07:29] LABS: BASO % 1.1 % (0-2.0); EOS % 0.8 % (0-4.5); HEMATOCRIT 23.5 % (35.4-49); HEMOGLOBIN 7.8 GM/dL (11.7-16.9); LYMPH % 11.1 % (8-40); MCH 30.1 pg (25.7-33.7); MCHC 33.1 g/dl (32.0-35.9); MEAN CELL VOLUME 90.8 fl (80-96); MEAN PLT VOLUME 8.4 fl (7.5-11.1); MONO % 8.4 % (3.8-10.2); NEUT % 78.6 % (42.8-82.8); PLATELET COUNT 566 10^3/uL (134-434); RBC 2.59 M/mm3 (4.00-5.60); RDW 17.1 % (11.9-15.9); WHITE BLOOD COUNT 19.6 K/mm3 (4.0-10.0)
[2023-12-11 07:49] LABS: POTASSIUM 4.3 mmol/L (3.5-5.1)
[2023-12-11 07:56] LABS: CALCIUM 8.2 mg/dL (8.5-10.1)
[2023-12-11 07:57] LABS: ALBUMIN 1.7 g/dl (3.4-5.0); BLOOD UREA NITROGEN 72.4 mg/dL (7-18)
[2023-12-11 08:00] LABS: CREATININE 2.3 mg/dL (0.55-1.3)
[2023-12-11 08:01] LABS: BILIRUBIN,TOTAL 0.5 mg/dL (0.2-1); TOT PROT 6.7 g/dl (6.4-8.2)
[2023-12-11] MEDS ORDERED: MIDAZOLAM HCL 2 MG/2 ML SINGLE DOSE VIAL ONE (14:50)
[2023-12-12 11:16] LABS: BASO % 1.4 % (0-2.0); EOS % 0.8 % (0-4.5); HEMATOCRIT 30.2 % (35.4-49); HEMOGLOBIN 9.5 GM/dL (11.7-16.9); LYMPH % 13.4 % (8-40); MCH 28.3 pg (25.7-33.7); MCHC 31.4 g/dl (32.0-35.9); MEAN CELL VOLUME 90.2 fl (80-96); MEAN PLT VOLUME 8.1 fl (7.5-11.1); MONO % 8.8 % (3.8-10.2); NEUT % 75.6 % (42.8-82.8); PLATELET COUNT 667 10^3/uL (134-434); RBC 3.35 M/mm3 (4.00-5.60); RDW 16.2 % (11.9-15.9); WHITE BLOOD COUNT 24.7 K/mm3 (4.0-10.0)
[2023-12-12 11:35] LABS: CALCIUM 9.1 mg/dL (8.5-10.1)
[2023-12-12 11:36] LABS: BLOOD UREA NITROGEN 67.6 mg/dL (7-18)
[2023-12-12 11:39] LABS: CREATININE 2.4 mg/dL (0.55-1.3)
[2023-12-12 11:41] LABS: BILIRUBIN,TOTAL 0.7 mg/dL (0.2-1); TOT PROT 7.8 g/dl (6.4-8.2)
[2023-12-12 12:13] LABS: ANISOCYTOSIS 0; MACROCYTOSIS 0
[2023-12-13 07:43] LABS: HEMATOCRIT 27.5 % (35.4-49); HEMOGLOBIN 8.8 GM/dL (11.7-16.9); MCH 28.6 pg (25.7-33.7); MCHC 31.9 g/dl (32.0-35.9); MEAN CELL VOLUME 89.7 fl (80-96); MEAN PLT VOLUME 8.1 fl (7.5-11.1); PLATELET COUNT 610 10^3/uL (134-434); RBC 3.06 M/mm3 (4.00-5.60); RDW 16.2 % (11.9-15.9)
[2023-12-13 08:00] LABS: POTASSIUM 4.1 mmol/L (3.5-5.1)
[2023-12-13 08:14] LABS: CALCIUM 8.8 mg/dL (8.5-10.1)
[2023-12-13 08:16] LABS: BLOOD UREA NITROGEN 67.5 mg/dL (7-18)
[2023-12-13 08:17] LABS: ALBUMIN 1.8 g/dl (3.4-5.0)
[2023-12-13 08:20] LABS: BILIRUBIN,TOTAL 0.6 mg/dL (0.2-1); TOT PROT 7.1 g/dl (6.4-8.2)
[2023-12-13 08:21] LABS: CREATININE 2.6 mg/dL (0.55-1.3)
[2023-12-13 09:31] LABS: ANISOCYTOSIS 0; HELMET CELLS 0; HOWELL-JOLLY BODIES 0; MACROCYTOSIS 0; OVALOCYTE 0; ROULEAU 0; SICKELED CELLS 0; TARGET CELLS 0; TEAR DROP CELLS 0; TOXIC GRANULATION 0
[2023-12-14 07:25] LABS: EOS % 1.2 % (0-4.5); HEMATOCRIT 26.9 % (35.4-49); HEMOGLOBIN 8.5 GM/dL (11.7-16.9); LYMPH % 9.9 % (8-40); MCH 28.5 pg (25.7-33.7); MCHC 31.7 g/dl (32.0-35.9); MEAN PLT VOLUME 8.1 fl (7.5-11.1); MONO % 9.9 % (3.8-10.2); PLATELET COUNT 616 10^3/uL (134-434); RBC 2.99 M/mm3 (4.00-5.60); WHITE BLOOD COUNT 18.2 K/mm3 (4.0-10.0)
[2023-12-14 07:32] LABS: POTASSIUM 4.2 mmol/L (3.5-5.1)
[2023-12-14 07:38] LABS: ALBUMIN 1.8 g/dl (3.4-5.0); BLOOD UREA NITROGEN 56.4 mg/dL (7-18); CALCIUM 8.2 mg/dL (8.5-10.1)
[2023-12-14 07:41] LABS: CREATININE 2.7 mg/dL (0.55-1.3)
[2023-12-14 07:42] LABS: BILIRUBIN,TOTAL 0.6 mg/dL (0.2-1)
[2023-12-14] MEDS: HEPARIN NA (PORCINE) 5,000 UNITS/ML 1ML VIAL SQ SCH (09:07)
[2023-12-15 07:41] LABS: BASO % 0.7 % (0-2.0); EOS % 1.7 % (0-4.5); HEMATOCRIT 25.7 % (35.4-49); HEMOGLOBIN 8.5 GM/dL (11.7-16.9); LYMPH % 10.9 % (8-40); MCH 29.1 pg (25.7-33.7); MEAN CELL VOLUME 88.3 fl (80-96); MONO % 11.9 % (3.8-10.2); NEUT % 74.8 % (42.8-82.8); PLATELET COUNT 587 10^3/uL (134-434); RBC 2.91 M/mm3 (4.00-5.60)
[2023-12-15 07:59] LABS: POTASSIUM 4.2 mmol/L (3.5-5.1)
[2023-12-15 08:05] LABS: CALCIUM 8.2 mg/dL (8.5-10.1)
[2023-12-15 08:06] LABS: ALBUMIN 1.8 g/dl (3.4-5.0); BLOOD UREA NITROGEN 58.6 mg/dL (7-18)
[2023-12-15 08:09] LABS: CREATININE 2.8 mg/dL (0.55-1.3)
[2023-12-15 08:10] LABS: TOT PROT 7.1 g/dl (6.4-8.2)
[2023-12-15 09:01] LABS: BILIRUBIN,TOTAL 0.5 mg/dL (0.2-1)
[2023-12-15] MEDS: METOPROLOL TARTRATE 25 MG TABLET (FP) PO SCH (10:13)
[2023-12-15] MEDS: ACETAMINOPHEN 325 MG TABLET (FP) PO PRN (22:03)
[2023-12-16 07:22] LABS: BASO % 0.9 % (0-2.0); EOS % 2.4 % (0-4.5); HEMATOCRIT 27.7 % (35.4-49); HEMOGLOBIN 8.8 GM/dL (11.7-16.9); LYMPH % 8.7 % (8-40); MCH 28.7 pg (25.7-33.7); MCHC 31.8 g/dl (32.0-35.9); MEAN CELL VOLUME 90.4 fl (80-96); PLATELET COUNT 578 10^3/uL (134-434); RBC 3.06 M/mm3 (4.00-5.60); RDW 16.5 % (11.9-15.9); WHITE BLOOD COUNT 16.5 K/mm3 (4.0-10.0)
[2023-12-16 07:58] LABS: POTASSIUM 3.9 mmol/L (3.5-5.1)
[2023-12-16 08:33] LABS: ALBUMIN 1.8 g/dl (3.4-5.0); BLOOD UREA NITROGEN 63.2 mg/dL (7-18); CALCIUM 8.3 mg/dL (8.5-10.1)
[2023-12-16 08:38] LABS: BILIRUBIN,TOTAL 0.6 mg/dL (0.2-1); TOT PROT 6.9 g/dl (6.4-8.2)
[2023-12-16] MEDS: METOPROLOL TARTRATE 25 MG TABLET (FP) GT SCH (21:50)
[2023-12-17 13:19] LABS: BASO % 0.8 % (0-2.0); EOS % 2.9 % (0-4.5); HEMATOCRIT 27.3 % (35.4-49); HEMOGLOBIN 8.8 GM/dL (11.7-16.9); LYMPH % 8.5 % (8-40); MCH 28.8 pg (25.7-33.7); MCHC 32.2 g/dl (32.0-35.9); MEAN CELL VOLUME 89.5 fl (80-96); MEAN PLT VOLUME 7.8 fl (7.5-11.1); MONO % 7.6 % (3.8-10.2); NEUT % 80.2 % (42.8-82.8); PLATELET COUNT 545 10^3/uL (134-434); RBC 3.06 M/mm3 (4.00-5.60); WHITE BLOOD COUNT 15.9 K/mm3 (4.0-10.0)
[2023-12-17 13:34] LABS: POTASSIUM 3.9 mmol/L (3.5-5.1)
[2023-12-17 13:35] LABS: CALCIUM 8.5 mg/dL (8.5-10.1)
[2023-12-17 13:36] LABS: BLOOD UREA NITROGEN 63.9 mg/dL (7-18)
[2023-12-17 13:39] LABS: CREATININE 2.9 mg/dL (0.55-1.3)
[2023-12-18 07:36] LABS: BASO % 1.2 % (0-2.0); EOS % 3.5 % (0-4.5); HEMATOCRIT 25.5 % (35.4-49); HEMOGLOBIN 8.2 GM/dL (11.7-16.9); MCH 29.2 pg (25.7-33.7); MCHC 32.2 g/dl (32.0-35.9); MEAN CELL VOLUME 90.8 fl (80-96); MEAN PLT VOLUME 8.5 fl (7.5-11.1); MONO % 9.5 % (3.8-10.2); NEUT % 72.8 % (42.8-82.8); PLATELET COUNT 499 10^3/uL (134-434); RBC 2.81 M/mm3 (4.00-5.60); RDW 16.1 % (11.9-15.9); WHITE BLOOD COUNT 16.1 K/mm3 (4.0-10.0)
[2023-12-18 07:47] LABS: POTASSIUM 4.2 mmol/L (3.5-5.1)
[2023-12-18 07:59] LABS: BLOOD UREA NITROGEN 64.7 mg/dL (7-18)
[2023-12-18 08:02] LABS: CREATININE 3.1 mg/dL (0.55-1.3)
[2023-12-18] MEDS ORDERED: INSULIN (LEVEMIR) 100 UNITS/ML UNITS SQ ONE (22:20)
[2023-12-19] MEDS ORDERED: INSULIN ASPART SLIDING SCALE (NOVOLOG) 1 VIAL SQ ONE ×2 (07:17→07:28)
[2023-12-19] MEDS ORDERED: INSULIN (LEVEMIR) 100 UNITS/ML UNITS SQ ONE (07:18)
[2023-12-19] MEDS: METOPROLOL TARTRATE 25 MG TABLET (FP) GT SCH (22:10)
[2023-12-21 07:38] LABS: BASO % 1.2 % (0-2.0); HEMATOCRIT 25.1 % (35.4-49); HEMOGLOBIN 8.1 GM/dL (11.7-16.9); LYMPH % 11.1 % (8-40); MCH 28.9 pg (25.7-33.7); MCHC 32.2 g/dl (32.0-35.9); MEAN CELL VOLUME 89.7 fl (80-96); MEAN PLT VOLUME 8.4 fl (7.5-11.1); MONO % 9.1 % (3.8-10.2); NEUT % 73.6 % (42.8-82.8); PLATELET COUNT 476 10^3/uL (134-434); RDW 16.2 % (11.9-15.9); WHITE BLOOD COUNT 15.2 K/mm3 (4.0-10.0)
[2023-12-21 07:58] LABS: BLOOD UREA NITROGEN 73.4 mg/dL (7-18); CALCIUM 8.5 mg/dL (8.5-10.1)
[2023-12-21 07:59] LABS: ALBUMIN 1.8 g/dl (3.4-5.0)
[2023-12-21 08:01] LABS: CREATININE 3.5 mg/dL (0.55-1.3)
[2023-12-21 08:03] LABS: BILIRUBIN,TOTAL 0.4 mg/dL (0.2-1); TOT PROT 7.3 g/dl (6.4-8.2)
[2023-12-22 07:37] LABS: HEMATOCRIT 24.3 % (35.4-49); HEMOGLOBIN 7.9 GM/dL (11.7-16.9); MCH 28.9 pg (25.7-33.7); MCHC 32.5 g/dl (32.0-35.9); MEAN CELL VOLUME 88.8 fl (80-96); MEAN PLT VOLUME 8.3 fl (7.5-11.1); PLATELET COUNT 468 10^3/uL (134-434); RBC 2.74 M/mm3 (4.00-5.60); RDW 16.2 % (11.9-15.9); WHITE BLOOD COUNT 14.8 K/mm3 (4.0-10.0)
[2023-12-22 07:46] LABS: POTASSIUM 3.7 mmol/L (3.5-5.1)
[2023-12-22 07:49] LABS: ALBUMIN 1.8 g/dl (3.4-5.0)
[2023-12-22 07:51] LABS: CALCIUM 8.3 mg/dL (8.5-10.1)
[2023-12-22 07:52] LABS: BLOOD UREA NITROGEN 75.3 mg/dL (7-18); CREATININE 3.4 mg/dL (0.55-1.3)
[2023-12-22 07:54] LABS: BILIRUBIN,TOTAL 0.4 mg/dL (0.2-1); TOT PROT 7.2 g/dl (6.4-8.2)
[2023-12-23] MEDS ORDERED: INSULIN ASPART SLIDING SCALE (NOVOLOG) 1 VIAL SQ ONE (06:55)
[2023-12-24 13:00] LABS: HEMATOCRIT 24.1 % (35.4-49); HEMOGLOBIN 7.7 GM/dL (11.7-16.9); MEAN CELL VOLUME 87.6 fl (80-96); MEAN PLT VOLUME 7.9 fl (7.5-11.1); PLATELET COUNT 459 10^3/uL (134-434); RBC 2.75 M/mm3 (4.00-5.60); RDW 16.4 % (11.9-15.9); WHITE BLOOD COUNT 16.2 K/mm3 (4.0-10.0)
[2023-12-24 13:21] LABS: POTASSIUM 4.2 mmol/L (3.5-5.1)
[2023-12-24 13:23] LABS: CALCIUM 8.7 mg/dL (8.5-10.1)
[2023-12-24 13:24] LABS: BLOOD UREA NITROGEN 88.3 mg/dL (7-18)
[2023-12-24 13:27] LABS: CREATININE 3.5 mg/dL (0.55-1.3)
[2023-12-25 06:51] LABS: HEMATOCRIT 24.6 % (35.4-49); HEMOGLOBIN 7.9 GM/dL (11.7-16.9); MCH 28.2 pg (25.7-33.7); MCHC 32.1 g/dl (32.0-35.9); MEAN CELL VOLUME 87.9 fl (80-96); MEAN PLT VOLUME 8.5 fl (7.5-11.1); PLATELET COUNT 423 10^3/uL (134-434); WHITE BLOOD COUNT 16.2 K/mm3 (4.0-10.0)
[2023-12-25 06:54] LABS: POTASSIUM 4.2 mmol/L (3.5-5.1)
[2023-12-25 06:56] LABS: BLOOD UREA NITROGEN 89.1 mg/dL (7-18); CALCIUM 8.8 mg/dL (8.5-10.1)
[2023-12-25 07:00] LABS: CREATININE 3.5 mg/dL (0.55-1.3)
[2023-12-25 07:01] LABS: BILIRUBIN,TOTAL 0.6 mg/dL (0.2-1); TOT PROT 7.6 g/dl (6.4-8.2)
[2023-12-25] MEDS ORDERED: DEXTROSE 50%-WATER 25 GM/50 ML DISP.SYRIN IVPUSH PRN (18:04)
[2023-12-25] MEDS: INSULIN ASPART SLIDING SCALE (NOVOLOG) 1 VIAL SQ SCH (21:15)
[2023-12-25] MEDS: INSULIN (LEVEMIR) 100 UNITS/ML UNITS SQ SCH (21:15)
[2023-12-26] MEDS: SEVELAMER CARBONATE 0.8 GM POWDER PACKET NGT SCH (08:51)
[2023-12-26] MEDS: PANTOPRAZOLE SODIUM 40 MG VIAL IVPUSH SCH (11:37)
[2023-12-26] MEDS: THIAMINE 100 MG TABLET NGT SCH (11:38)
[2023-12-26] MEDS: FOLIC ACID 1 MG TABLET (FP) NGT SCH (11:38)
[2023-12-26] MEDS: DOXAZOSIN MESYLATE 1 MG TABLET NGT SCH (11:38)
[2023-12-27 09:34] LABS: POTASSIUM 4.2 mmol/L (3.5-5.1)
[2023-12-27 09:42] LABS: ALBUMIN 1.9 g/dl (3.4-5.0); CALCIUM 8.4 mg/dL (8.5-10.1)
[2023-12-27 09:43] LABS: BLOOD UREA NITROGEN 96.8 mg/dL (7-18)
[2023-12-27 09:46] LABS: CREATININE 3.5 mg/dL (0.55-1.3)
[2023-12-27 09:47] LABS: BILIRUBIN,TOTAL 0.5 mg/dL (0.2-1); TOT PROT 7.4 g/dl (6.4-8.2)
[2023-12-27 17:03] LABS: EPI CELLS >36 /uL (0-25.1); HYALINE CASTS 4 /uL (0-3.1); PH,URINE 5.5 (5.0-8.0); URINE APPEARANCE TURBID; URINE BACTERIA 221 /uL (0-1359); URINE BILIRUBIN NEGATIVE (NEGATIVE); URINE COLOR YELLOW; URINE GLUCOSE (UA) NEGATIVE (NEGATIVE); URINE KETONE NEGATIVE (NEGATIVE); URINE LEUK ESTERASE 3+ (NEGATIVE); URINE NITRITE NEGATIVE (NEGATIVE); URINE PROTEIN 2+ (NEGATIVE); URINE RBC 1103 /uL (0-23.9); URINE UROBILINOGEN 0.2 mg/dL (0.2-1.0); URINE WBC 4689 /uL (0-25.8)
[2023-12-27] MEDS: MELATONIN 5 MG TABLETS NGT PRN (21:12)
[2023-12-28 11:16] LABS: BASO % 0.9 % (0-2.0); EOS % 6.6 % (0-4.5); HEMATOCRIT 22.2 % (35.4-49); HEMOGLOBIN 7.2 GM/dL (11.7-16.9); MCH 28.1 pg (25.7-33.7); MCHC 32.2 g/dl (32.0-35.9); MEAN PLT VOLUME 7.9 fl (7.5-11.1); MONO % 8.7 % (3.8-10.2); NEUT % 70.8 % (42.8-82.8); PLATELET COUNT 421 10^3/uL (134-434); RBC 2.55 M/mm3 (4.00-5.60); RDW 16.2 % (11.9-15.9); WHITE BLOOD COUNT 13.9 K/mm3 (4.0-10.0)
[2023-12-28 11:37] LABS: ALBUMIN 1.8 g/dl (3.4-5.0); BLOOD UREA NITROGEN 96.4 mg/dL (7-18); CALCIUM 8.1 mg/dL (8.5-10.1)
[2023-12-28 11:41] LABS: CREATININE 3.3 mg/dL (0.55-1.3)
[2023-12-28 11:42] LABS: BILIRUBIN,TOTAL 0.5 mg/dL (0.2-1); TOT PROT 7.4 g/dl (6.4-8.2)
[2023-12-29] MEDS: FLUCONAZOLE 200 MG/NS 100 ML IVPB ONE (12:24)
[2023-12-29] MEDS: ACETAMINOPHEN 325 MG TABLET (FP) PO PRN (22:00)
[2023-12-31 09:47] LABS: POTASSIUM 4.1 mmol/L (3.5-5.1)
[2023-12-31 09:52] LABS: CALCIUM 8.2 mg/dL (8.5-10.1)
[2023-12-31 09:53] LABS: ALBUMIN 1.8 g/dl (3.4-5.0); BLOOD UREA NITROGEN 94.7 mg/dL (7-18)
[2023-12-31 09:56] LABS: CREATININE 2.8 mg/dL (0.55-1.3)
[2023-12-31 09:58] LABS: BILIRUBIN,TOTAL 0.5 mg/dL (0.2-1)
[2023-12-31] MEDS: FLUCONAZOLE 100 MG TABLET (UD) PEG SCH (13:21)
[2024-01-01] MEDS: EPOETIN ALFA-EPBX 10,000 UNIT/ML VIAL SQ ONE (13:27)
[2024-01-02] MEDS: FUROSEMIDE 40 MG/4 ML INJECTABLE VIAL IVPUSH ONE (11:20)
[2024-01-03 09:24] LABS: HEMATOCRIT 19.5 % (35.4-49); MCH 27.2 pg (25.7-33.7); MEAN CELL VOLUME 85.1 fl (80-96); PLATELET COUNT 463 10^3/uL (134-434); RDW 16.3 % (11.9-15.9); WHITE BLOOD COUNT 13.3 K/mm3 (4.0-10.0)
[2024-01-03 09:33] LABS: HEMOGLOBIN 6.3 GM/dL (11.7-16.9)
[2024-01-03 10:07] LABS: BLOOD UREA NITROGEN 86.3 mg/dL (7-18)
[2024-01-03 10:09] LABS: CALCIUM 8.4 mg/dL (8.5-10.1)
[2024-01-03 10:10] LABS: ALBUMIN 1.8 g/dl (3.4-5.0)
[2024-01-03 10:13] LABS: CREATININE 2.1 mg/dL (0.55-1.3); TOT PROT 7.3 g/dl (6.4-8.2)
[2024-01-03 10:15] LABS: BILIRUBIN,TOTAL 0.4 mg/dL (0.2-1)
[2024-01-04 09:53] LABS: BASO % 1.1 % (0-2.0); EOS % 4.8 % (0-4.5); HEMATOCRIT 25.4 % (35.4-49); HEMOGLOBIN 8.3 GM/dL (11.7-16.9); LYMPH % 19.4 % (8-40); MCH 27.8 pg (25.7-33.7); MCHC 32.7 g/dl (32.0-35.9); MEAN CELL VOLUME 85.1 fl (80-96); MONO % 9.8 % (3.8-10.2); NEUT % 64.9 % (42.8-82.8); PLATELET COUNT 565 10^3/uL (134-434); RBC 2.99 M/mm3 (4.00-5.60); RDW 15.8 % (11.9-15.9); WHITE BLOOD COUNT 16.1 K/mm3 (4.0-10.0)
[2024-01-04 10:22] LABS: POTASSIUM 4.2 mmol/L (3.5-5.1)
[2024-01-04 10:27] LABS: BLOOD UREA NITROGEN 81.2 mg/dL (7-18); CALCIUM 8.6 mg/dL (8.5-10.1)
[2024-01-04 10:30] LABS: CREATININE 2.1 mg/dL (0.55-1.3)
[2024-01-04 10:31] LABS: BILIRUBIN,TOTAL 0.6 mg/dL (0.2-1)
[2024-01-04 10:32] LABS: TOT PROT 7.7 g/dl (6.4-8.2)
[2024-01-05 12:04] LABS: BASO % 0.7 % (0-2.0); EOS % 5.5 % (0-4.5); HEMATOCRIT 24.2 % (35.4-49); HEMOGLOBIN 7.9 GM/dL (11.7-16.9); LYMPH % 12.6 % (8-40); MCHC 32.5 g/dl (32.0-35.9); MEAN CELL VOLUME 86.3 fl (80-96); MEAN PLT VOLUME 7.8 fl (7.5-11.1); MONO % 11.3 % (3.8-10.2); NEUT % 69.9 % (42.8-82.8); PLATELET COUNT 510 10^3/uL (134-434); RDW 15.9 % (11.9-15.9); WHITE BLOOD COUNT 13.5 K/mm3 (4.0-10.0)
[2024-01-05 12:42] LABS: POTASSIUM 4.1 mmol/L (3.5-5.1)
[2024-01-05 12:56] LABS: CALCIUM 8.7 mg/dL (8.5-10.1)
[2024-01-05 12:57] LABS: ALBUMIN 1.8 g/dl (3.4-5.0)
[2024-01-05 13:00] LABS: CREATININE 1.8 mg/dL (0.55-1.3)
[2024-01-05 13:01] LABS: BILIRUBIN,TOTAL 0.5 mg/dL (0.2-1); TOT PROT 7.4 g/dl (6.4-8.2)
[2024-01-06 20:57] VITALS: BP 142/83; PULSE 94; RESP 18; TEMP 99
== END 2024-01-07 00:57 | DRG 4 ==
LOC: JER 13:14 → JERBED 16:59 → J4W 11-05 05:26 → JICU 11-05 11:50 → J2W 12-07 13:28 → J5S 12-25 17:50
PROVIDERS: ADMIT Internal Medicine; ATTEND Family Medicine
PROC: 5A1955Z Respiratory Ventilation, Greater than 96 Consecutive Hours (ICD-10-PCS; 2023-11-05)
PROC: 0BH17EZ Insertion of Endotracheal Airway into Trachea, Via Natural or Artificial Opening (ICD-10-PCS; 2023-11-05)
PROC: 4A133B1 Monitoring of Arterial Pressure, Peripheral, Percutaneous Approach (ICD-10-PCS; 2023-11-05)
PROC: 4A133J1 Monitoring of Arterial Pulse, Peripheral, Percutaneous Approach (ICD-10-PCS; 2023-11-05)
PROC: 05HM33Z Insertion of Infusion Device into Right Internal Jugular Vein, Percutaneous Approach (ICD-10-PCS; 2023-11-05)
PROC: B543ZZA Ultrasonography of Right Jugular Veins, Guidance (ICD-10-PCS; 2023-11-05)
PROC: 02HV33Z Insertion of Infusion Device into Superior Vena Cava, Percutaneous Approach (ICD-10-PCS; 2023-11-08)
PROC: B548ZZA Ultrasonography of Superior Vena Cava, Guidance (ICD-10-PCS; 2023-11-08)
PROC: 30233R1 Transfusion of Nonautologous Platelets into Peripheral Vein, Percutaneous Approach (ICD-10-PCS; 2023-11-09)
PROC: 4A133B1 Monitoring of Arterial Pressure, Peripheral, Percutaneous Approach (ICD-10-PCS; 2023-11-10)
PROC: 4A133J1 Monitoring of Arterial Pulse, Peripheral, Percutaneous Approach (ICD-10-PCS; 2023-11-10)
PROC: 05HN33Z Insertion of Infusion Device into Left Internal Jugular Vein, Percutaneous Approach (ICD-10-PCS; 2023-11-14)
PROC: B544ZZA Ultrasonography of Left Jugular Veins, Guidance (ICD-10-PCS; 2023-11-14)
PROC: 05HM33Z Insertion of Infusion Device into Right Internal Jugular Vein, Percutaneous Approach (ICD-10-PCS; 2023-11-14)
PROC: B543ZZA Ultrasonography of Right Jugular Veins, Guidance (ICD-10-PCS; 2023-11-14)
PROC: 5A1D70Z Performance of Urinary Filtration, Intermittent, Less than 6 Hours Per Day (ICD-10-PCS; 2023-11-17)
PROC: 30233N1 Transfusion of Nonautologous Red Blood Cells into Peripheral Vein, Percutaneous Approach (ICD-10-PCS; 2023-11-21)
PROC: 0W9B30Z Drainage of Left Pleural Cavity with Drainage Device, Percutaneous Approach (ICD-10-PCS; 2023-11-25)
PROC: 05HA33Z Insertion of Infusion Device into Left Brachial Vein, Percutaneous Approach (ICD-10-PCS; 2023-11-27)
PROC: 0B113F4 Bypass Trachea to Cutaneous with Tracheostomy Device, Percutaneous Approach (ICD-10-PCS; principal; 2023-12-04)
PROC: 0BJ08ZZ Inspection of Tracheobronchial Tree, Via Natural or Artificial Opening Endoscopic (ICD-10-PCS; 2023-12-04)
PROC: 0DJ08ZZ Inspection of Upper Intestinal Tract, Via Natural or Artificial Opening Endoscopic (ICD-10-PCS; 2023-12-10)
PROC: 0DH63UZ Insertion of Feeding Device into Stomach, Percutaneous Approach (ICD-10-PCS; 2023-12-11)
PROC: 3E0G76Z Introduction of Nutritional Substance into Upper GI, Via Natural or Artificial Opening (ICD-10-PCS; 2023-12-11)
PROC: BD12ZZZ Fluoroscopy of Stomach (ICD-10-PCS; 2023-12-11)
DX: A41.50 Gram-negative sepsis, unspecified (principal); A48.1 Legionnaires' disease; G93.41 Metabolic encephalopathy; J96.01 Acute respiratory failure with hypoxia; R65.21 Severe sepsis with septic shock; R57.0 Cardiogenic shock; K72.00 Acute and subacute hepatic failure without coma; N17.0 Acute kidney failure with tubular necrosis; E87.20 Acidosis, unspecified; N17.9 Acute kidney failure, unspecified; E87.1 Hypo-osmolality and hyponatremia; I24.89 Other forms of acute ischemic heart disease; K92.2 Gastrointestinal hemorrhage, unspecified; J90 Pleural effusion, not elsewhere classified; I47.19 Other supraventricular tachycardia; E46 Unspecified protein-calorie malnutrition; Z68.1 Body mass index [BMI] 19.9 or less, adult; R18.8 Other ascites; R64 Cachexia; E11.9 Type 2 diabetes mellitus without complications; J45.909 Unspecified asthma, uncomplicated; E78.5 Hyperlipidemia, unspecified; F10.10 Alcohol abuse, uncomplicated; K70.9 Alcoholic liver disease, unspecified; K20.90 Esophagitis, unspecified without bleeding; K29.70 Gastritis, unspecified, without bleeding; E87.70 Fluid overload, unspecified; R74.01 Elevation of levels of liver transaminase levels; I10 Essential (primary) hypertension; D64.9 Anemia, unspecified; R33.9 Retention of urine, unspecified; D69.6 Thrombocytopenia, unspecified
CPT/HCPCS: 0241U-QW; 31500; 36415; 36430; 36600; 49440; 70450-TC; 71045-TC-FY; 71250-TC; 76700-TC; 76705-TC; 80048; 80053; 80076; 80307; 81003; 82010; 82042; 82140; 82248; 82272; 82465; 82550; 82553; 82728; 82803; 82945; 82962; 83036; 83516; 83520; 83540; 83550; 83605; 83615; 83735; 83880; 84100; 84155; 84165; 84300; 84484; 85025; 85027; 85045; 85610; 85730; 86038; 86160; 86225; 86256; 86704; 86708; 86803; 86850; 86900; 86901; 86922; 87040; 87070; 87075; 87077; 87086; 87205; 87340; 87517; 87899; 93005; 93010; 93306-TC; 93971; 93975; 94002; 94640; 94660; 97162-GP; 99285-25; E0186; G0480; J0131; J1250; J1644; J1756; J2997; J3490; P9034; P9038; P9047; P9058; Q5106

== ENCOUNTER 2024-01-07 18:50 | Inpatient (IN) | payer OTHER ==
[2024-01-07 22:36] LABS: BASO % 1.6 % (0-2.0); EOS % 4.2 % (0-4.5); HEMATOCRIT 22.7 % (35.4-49); HEMOGLOBIN 7.3 GM/dL (11.7-16.9); LYMPH % 15.9 % (8-40); MCH 27.2 pg (25.7-33.7); MCHC 32.1 g/dl (32.0-35.9); MEAN CELL VOLUME 84.7 fl (80-96); MEAN PLT VOLUME 7.8 fl (7.5-11.1); MONO % 12.1 % (3.8-10.2); NEUT % 66.2 % (42.8-82.8); PLATELET COUNT 524 10^3/uL (134-434); RBC 2.68 M/mm3 (4.00-5.60); RDW 16.1 % (11.9-15.9); WHITE BLOOD COUNT 13.3 K/mm3 (4.0-10.0)
[2024-01-07 22:55] LABS: POTASSIUM 4.2 mmol/L (3.5-5.1)
[2024-01-07 22:56] LABS: ALBUMIN 1.9 g/dl (3.4-5.0); BLOOD UREA NITROGEN 68.7 mg/dL (7-18); CALCIUM 8.7 mg/dL (8.5-10.1)
[2024-01-07 23:00] LABS: CREATININE 1.6 mg/dL (0.55-1.3)
[2024-01-07 23:02] LABS: BILIRUBIN,TOTAL 0.7 mg/dL (0.2-1); TOT PROT 7.4 g/dl (6.4-8.2)
[2024-01-08] MEDS: INSULIN ASPART SLIDING SCALE (NOVOLOG) 1 VIAL SQ SCH (06:24)
[2024-01-08] MEDS: SEVELAMER CARBONATE 0.8 GM POWDER PACKET GT SCH (08:09)
[2024-01-08] MEDS ORDERED: METOPROLOL TARTRATE 25 MG TABLET (FP) GT SCH (10:00)
[2024-01-08] MEDS: METOPROLOL TARTRATE 50 MG, METOPROLOL TARTRATE 25 MG GT SCH (12:16)
[2024-01-08] MEDS: FOLIC ACID 1 MG TABLET (FP) GT SCH (12:17)
[2024-01-08] MEDS: THIAMINE 100 MG TABLET NGT SCH (12:17)
[2024-01-08] MEDS: FUROSEMIDE 40 MG/4 ML INJECTABLE VIAL IVPUSH SCH (15:53)
[2024-01-08] MEDS: DOXAZOSIN MESYLATE 1 MG TABLET GT SCH (18:11)
[2024-01-09 10:02] LABS: BASO % 1.5 % (0-2.0); EOS % 5.9 % (0-4.5); HEMATOCRIT 22.5 % (35.4-49); HEMOGLOBIN 7.4 GM/dL (11.7-16.9); LYMPH % 19.4 % (8-40); MCH 27.9 pg (25.7-33.7); MCHC 32.8 g/dl (32.0-35.9); MEAN CELL VOLUME 85.1 fl (80-96); MEAN PLT VOLUME 7.5 fl (7.5-11.1); MONO % 12.9 % (3.8-10.2); NEUT % 60.3 % (42.8-82.8); PLATELET COUNT 530 10^3/uL (134-434); RBC 2.64 M/mm3 (4.00-5.60); RDW 16.3 % (11.9-15.9); WHITE BLOOD COUNT 12.6 K/mm3 (4.0-10.0)
[2024-01-09 10:13] LABS: POTASSIUM 4.1 mmol/L (3.5-5.1)
[2024-01-09 10:17] LABS: BLOOD UREA NITROGEN 63.9 mg/dL (7-18); CALCIUM 8.5 mg/dL (8.5-10.1)
[2024-01-09 10:18] LABS: ALBUMIN 1.8 g/dl (3.4-5.0)
[2024-01-09 10:20] LABS: CREATININE 1.7 mg/dL (0.55-1.3)
[2024-01-09 10:22] LABS: BILIRUBIN,TOTAL 0.8 mg/dL (0.2-1); TOT PROT 7.6 g/dl (6.4-8.2)
[2024-01-09] MEDS: ACETAMINOPHEN 325 MG TABLET (FP) NR PRN (10:44)
[2024-01-09] MEDS: PIPERACILLIN/TAZOB 2.25 GM 2.25 GM in DEXTROSE 5%-WATER - 50 ML IVPB ONE (20:13)
[2024-01-09] MEDS: VANCOMYCIN/WATER FOR INJ (PEG) 1,000 MG/200 ML BAG IVPB ONE (20:49)
[2024-01-10] MEDS: PIPERACILLIN/TAZOB 2.25 GM 2.25 GM/50 ML BAG IVPB SCH (01:21)
[2024-01-10 08:45] LABS: BASO % 0.9 % (0-2.0); EOS % 6.2 % (0-4.5); HEMATOCRIT 21.8 % (35.4-49); HEMOGLOBIN 7.1 GM/dL (11.7-16.9); LYMPH % 14.2 % (8-40); MCH 27.6 pg (25.7-33.7); MCHC 32.6 g/dl (32.0-35.9); MEAN CELL VOLUME 84.6 fl (80-96); MEAN PLT VOLUME 7.6 fl (7.5-11.1); MONO % 11.3 % (3.8-10.2); NEUT % 67.4 % (42.8-82.8); PLATELET COUNT 513 10^3/uL (134-434); RBC 2.58 M/mm3 (4.00-5.60); RDW 16.3 % (11.9-15.9); WHITE BLOOD COUNT 13.4 K/mm3 (4.0-10.0)
[2024-01-10 08:58] LABS: POTASSIUM 3.7 mmol/L (3.5-5.1)
[2024-01-10 09:02] LABS: ALBUMIN 1.8 g/dl (3.4-5.0); BLOOD UREA NITROGEN 58.4 mg/dL (7-18)
[2024-01-10 09:03] LABS: CALCIUM 8.5 mg/dL (8.5-10.1)
[2024-01-10 09:05] LABS: CREATININE 1.6 mg/dL (0.55-1.3)
[2024-01-10 09:06] LABS: BILIRUBIN,TOTAL 0.8 mg/dL (0.2-1); TOT PROT 7.2 g/dl (6.4-8.2)
[2024-01-10] MEDS: IRON SUCROSE INJECTION 200 MG in SODIUM CHLORIDE 100 ML IVPB ONE (11:35)
[2024-01-11] MEDS ORDERED: FUROSEMIDE 40 MG/4 ML INJECTABLE VIAL IVPUSH ONE (07:49)
[2024-01-11] MEDS: HEPARIN NA (PORCINE) 5,000 UNITS/ML 1ML VIAL SQ SCH (09:19)
[2024-01-11 09:46] LABS: BASO % 1.1 % (0-2.0); EOS % 5.9 % (0-4.5); HEMATOCRIT 27.6 % (35.4-49); HEMOGLOBIN 8.6 GM/dL (11.7-16.9); LYMPH % 20.4 % (8-40); MCH 26.8 pg (25.7-33.7); MCHC 31.2 g/dl (32.0-35.9); MEAN PLT VOLUME 7.6 fl (7.5-11.1); MONO % 10.6 % (3.8-10.2); PLATELET COUNT 616 10^3/uL (134-434); RBC 3.21 M/mm3 (4.00-5.60); RDW 16.4 % (11.9-15.9); WHITE BLOOD COUNT 16.5 K/mm3 (4.0-10.0)
[2024-01-11 09:58] LABS: POTASSIUM 3.8 mmol/L (3.5-5.1)
[2024-01-11 10:01] LABS: CALCIUM 8.8 mg/dL (8.5-10.1)
[2024-01-11 10:02] LABS: BLOOD UREA NITROGEN 52.6 mg/dL (7-18)
[2024-01-11 10:05] LABS: CREATININE 1.7 mg/dL (0.55-1.3)
[2024-01-11 10:06] LABS: BILIRUBIN,TOTAL 0.8 mg/dL (0.2-1); TOT PROT 7.9 g/dl (6.4-8.2)
[2024-01-11] MEDS: FUROSEMIDE 40 MG/4 ML INJECTABLE VIAL IVPUSH ONE (16:37)
[2024-01-12 08:43] LABS: BASO % 1.1 % (0-2.0); EOS % 7.2 % (0-4.5); HEMATOCRIT 27.6 % (35.4-49); HEMOGLOBIN 9.1 GM/dL (11.7-16.9); LYMPH % 16.8 % (8-40); MCH 27.9 pg (25.7-33.7); MEAN CELL VOLUME 84.4 fl (80-96); MEAN PLT VOLUME 7.8 fl (7.5-11.1); MONO % 10.8 % (3.8-10.2); NEUT % 64.1 % (42.8-82.8); PLATELET COUNT 550 10^3/uL (134-434); RBC 3.27 M/mm3 (4.00-5.60); RDW 16.3 % (11.9-15.9); WHITE BLOOD COUNT 14.7 K/mm3 (4.0-10.0)
[2024-01-12 08:57] LABS: POTASSIUM 3.7 mmol/L (3.5-5.1)
[2024-01-12 09:11] LABS: ALBUMIN 1.8 g/dl (3.4-5.0); BLOOD UREA NITROGEN 49.1 mg/dL (7-18); CALCIUM 8.7 mg/dL (8.5-10.1)
[2024-01-12 09:15] LABS: BILIRUBIN,TOTAL 0.7 mg/dL (0.2-1); CREATININE 1.5 mg/dL (0.55-1.3); TOT PROT 7.4 g/dl (6.4-8.2)
[2024-01-12] MEDS: FLUCONAZOLE 100 MG TABLET (UD) GT SCH (10:38)
[2024-01-12 14:12] VITALS: BMI 27.6
[2024-01-12] MEDS: EPOETIN ALFA-EPBX 10,000 UNIT/ML VIAL SQ ONE (17:03)
[2024-01-13 10:38] LABS: BASO % 1.3 % (0-2.0); HEMATOCRIT 27.7 % (35.4-49); LYMPH % 18.3 % (8-40); MCH 27.6 pg (25.7-33.7); MCHC 32.4 g/dl (32.0-35.9); MEAN CELL VOLUME 85.2 fl (80-96); MEAN PLT VOLUME 7.5 fl (7.5-11.1); MONO % 10.4 % (3.8-10.2); PLATELET COUNT 564 10^3/uL (134-434); RBC 3.26 M/mm3 (4.00-5.60); RDW 16.8 % (11.9-15.9); WHITE BLOOD COUNT 15.7 K/mm3 (4.0-10.0)
[2024-01-13 11:05] LABS: POTASSIUM 3.7 mmol/L (3.5-5.1)
[2024-01-13 11:12] LABS: ALBUMIN 1.9 g/dl (3.4-5.0); BLOOD UREA NITROGEN 46.1 mg/dL (7-18); CALCIUM 8.9 mg/dL (8.5-10.1)
[2024-01-13 11:16] LABS: CREATININE 1.5 mg/dL (0.55-1.3)
[2024-01-13 11:17] LABS: BILIRUBIN,TOTAL 0.8 mg/dL (0.2-1); TOT PROT 7.5 g/dl (6.4-8.2)
[2024-01-13] MEDS: IRON SUCROSE INJECTION 200 MG in SODIUM CHLORIDE 100 ML IVPB ONE (15:13)
[2024-01-15 06:36] VITALS: TEMP 97.5
[2024-01-15] MEDS: EPOETIN ALFA-EPBX 10,000 UNIT/ML VIAL SQ ONE (11:44)
[2024-01-15 14:38] VITALS: PULSE 88; RESP 21
[2024-01-15 15:36] VITALS: BP 128/81
== END 2024-01-15 16:15 | DRG 870 ==
LOC: JER 18:50 → JERBED 19:24 → J5S 20:59 → OBSVTOIN 01-13 14:02
PROVIDERS: ADMIT Internal Medicine; ATTEND Family Medicine
PROC: 5A1955Z Respiratory Ventilation, Greater than 96 Consecutive Hours (ICD-10-PCS; principal; 2024-01-07)
DX: A41.9 Sepsis, unspecified organism (principal); J18.9 Pneumonia, unspecified organism; R53.2 Functional quadriplegia; J96.10 Chronic respiratory failure, unspecified whether with hypoxia or hypercapnia; Z93.0 Tracheostomy status; E78.5 Hyperlipidemia, unspecified; I10 Essential (primary) hypertension; E11.9 Type 2 diabetes mellitus without complications
CPT/HCPCS: 36415; 36430; 71045-TC-FY; 74230-TC-FY; 80053; 82728; 82962; 83540; 83550; 84466; 85025; 86850; 86900; 86901; 86922; 87040; 87086; 87635; 92611-GN; 94002; 99285-25; G0378; G0480; J1644; J1756; P9058; Q5106

== ENCOUNTER 2024-02-02 14:36 | Inpatient (IN) | payer OTHER ==
[2024-02-02 16:25] LABS: BASO % 0.3 % (0-2.0); EOS % 0.1 % (0-4.5); HEMATOCRIT 27.5 % (35.4-49); HEMOGLOBIN 8.6 GM/dL (11.7-16.9); MCH 27.6 pg (25.7-33.7); MCHC 31.2 g/dl (32.0-35.9); MEAN CELL VOLUME 88.4 fl (80-96); MEAN PLT VOLUME 7.8 fl (7.5-11.1); MONO % 9.1 % (3.8-10.2); NEUT % 87.5 % (42.8-82.8); PLATELET COUNT 631 10^3/uL (134-434); RBC 3.11 M/mm3 (4.00-5.60); RDW 18.5 % (11.9-15.9); WHITE BLOOD COUNT 14.8 K/mm3 (4.0-10.0)
[2024-02-02 16:30] LABS: POTASSIUM 5.6 mmol/L (3.5-5.1)
[2024-02-02 16:32] LABS: ALBUMIN 2.3 g/dl (3.4-5.0); BLOOD UREA NITROGEN 69.7 mg/dL (7-18); CALCIUM 9.6 mg/dL (8.5-10.1)
[2024-02-02 16:35] LABS: CREATININE 1.4 mg/dL (0.55-1.3)
[2024-02-02] MEDS ORDERED: ONDANSETRON 4 MG/2 ML VIAL ONE (16:35)
[2024-02-02 16:37] LABS: TOT PROT 8.6 g/dl (6.4-8.2)
[2024-02-02] MEDS: ONDANSETRON 4 MG/2 ML VIAL IVPB ONE (16:38)
[2024-02-02 16:43] LABS: BILIRUBIN,TOTAL 0.6 mg/dL (0.2-1)
[2024-02-02 16:46] LABS: LACTIC ACID 3.1 mmol/L (0.4-2.0)
[2024-02-02] MEDS: SODIUM CHLORIDE 0.9% 500 ML INFUS.BAG IV ONE ×2 (18:25→22:30)
[2024-02-02 18:43] LABS: EPI CELLS 28 /uL (0-25.1); HYALINE CASTS 2 /uL (0-3.1); PH,URINE 5.5 (5.0-8.0); URINE APPEARANCE CLEAR; URINE BACTERIA 28 /uL (0-1359); URINE BILIRUBIN NEGATIVE (NEGATIVE); URINE COLOR YELLOW; URINE GLUCOSE (UA) NEGATIVE (NEGATIVE); URINE KETONE NEGATIVE (NEGATIVE); URINE LEUK ESTERASE 2+ (NEGATIVE); URINE NITRITE NEGATIVE (NEGATIVE); URINE PROTEIN 2+ (NEGATIVE); URINE RBC 99 /uL (0-23.9); URINE UROBILINOGEN 0.2 mg/dL (0.2-1.0); URINE WBC 254 /uL (0-25.8)
[2024-02-02 20:01] LABS: URINE CRYSTALS MANY /hpf
[2024-02-02 20:44] LABS: EPI CELLS 19 /uL (0-25.1); HYALINE CASTS 1 /uL (0-3.1); URINE APPEARANCE CLEAR; URINE BACTERIA 30 /uL (0-1359); URINE BILIRUBIN NEGATIVE (NEGATIVE); URINE COLOR YELLOW; URINE GLUCOSE (UA) NEGATIVE (NEGATIVE); URINE KETONE NEGATIVE (NEGATIVE); URINE LEUK ESTERASE 2+ (NEGATIVE); URINE NITRITE NEGATIVE (NEGATIVE); URINE PROTEIN 2+ (NEGATIVE); URINE RBC 85 /uL (0-23.9); URINE UROBILINOGEN 0.2 mg/dL (0.2-1.0); URINE WBC 175 /uL (0-25.8)
[2024-02-02] MEDS ORDERED: PIPERACILLIN/TAZOB 4.5 GM 4.5 GM/100 ML BAG IVPB ONE (21:21)
[2024-02-02] MEDS: PIPERACILLIN/TAZOB 4.5 GM 4.5 GM in DEXTROSE 5%-WATER 100 ML IVPB ONE (21:28)
[2024-02-02 21:30] LABS: LACTIC ACID 4.4 mmol/L (0.4-2.0)
[2024-02-02] MEDS: VANCOMYCIN PREMIX 1.75 GM 1,750 MG/350 ML PIGGYBACK IVPB ONE (22:00)
[2024-02-02] MEDS: INSULIN REGULAR HUMAN 100 UNITS/ML *VIAL IVPUSH ONE (22:03)
[2024-02-02] MEDS: DEXTROSE 50%-WATER - 25 GM/50 ML VIAL IVPUSH ONE (22:04)
[2024-02-02 23:42] LABS: POTASSIUM 4.6 mmol/L (3.5-5.1)
[2024-02-02 23:44] LABS: BLOOD UREA NITROGEN 70.4 mg/dL (7-18); CALCIUM 9.2 mg/dL (8.5-10.1)
[2024-02-02 23:48] LABS: CREATININE 1.2 mg/dL (0.55-1.3)
[2024-02-03 00:31] LABS: LACTIC ACID 2.5 mmol/L (0.4-2.0)
[2024-02-03] MEDS ORDERED: PIPERACILLIN/TAZOB 4.5 GM 4.5 GM in DEXTROSE 5%-WATER 100 ML IVPB SCH (02:00)
[2024-02-03] MEDS ORDERED: ACETAMINOPHEN 1000 MG/100 ML BAG IVPB PRN (02:04)
[2024-02-03] MEDS: PIPERACILLIN/TAZOB 4.5 GM 4.5 GM/100 ML BAG IVPB SCH (04:40)
[2024-02-03] MEDS ORDERED: DEXTROSE 50%-WATER 25 GM/50 ML DISP.SYRIN ONE ×2 (05:19→16:18)
[2024-02-03] MEDS: SEVELAMER CARBONATE 0.8 GM POWDER PACKET GT SCH (05:51)
[2024-02-03] MEDS ORDERED: DOXAZOSIN MESYLATE 1 MG TABLET NGT SCH ×2 (05:55→10:00)
[2024-02-03] MEDS: DEXTROSE 50%-WATER - 25 GM/50 ML VIAL IVPUSH ONE (05:55)
[2024-02-03] MEDS ORDERED: METOPROLOL TARTRATE 50 MG TABLET (FP) GT SCH ×2 (05:56→10:00)
[2024-02-03] MEDS ORDERED: FUROSEMIDE 40 MG TABLET (FP) GT SCH ×2 (05:56→10:00)
[2024-02-03] MEDS: METOPROLOL TARTRATE 50 MG TABLET (FP) GT SCH (06:58)
[2024-02-03] MEDS: DOXAZOSIN MESYLATE 1 MG TABLET NGT SCH (06:58)
[2024-02-03] MEDS: FUROSEMIDE 40 MG TABLET (FP) GT SCH (06:58)
[2024-02-03] MEDS: INSULIN ASPART SLIDING SCALE (NOVOLOG) 1 VIAL SQ SCH (06:58)
[2024-02-03 07:17] LABS: HEMATOCRIT 24.2 % (35.4-49); HEMOGLOBIN 7.6 GM/dL (11.7-16.9); MCH 27.2 pg (25.7-33.7); MCHC 31.3 g/dl (32.0-35.9); MEAN CELL VOLUME 86.9 fl (80-96); MEAN PLT VOLUME 7.7 fl (7.5-11.1); PLATELET COUNT 535 10^3/uL (134-434); RBC 2.78 M/mm3 (4.00-5.60); RDW 18.7 % (11.9-15.9); WHITE BLOOD COUNT 12.2 K/mm3 (4.0-10.0)
[2024-02-03 07:33] LABS: POTASSIUM 4.1 mmol/L (3.5-5.1)
[2024-02-03 07:37] LABS: ALBUMIN 2.2 g/dl (3.4-5.0); BLOOD UREA NITROGEN 73.4 mg/dL (7-18); CALCIUM 9.4 mg/dL (8.5-10.1); MAGNESIUM 2.6 mg/dL (1.8-2.4)
[2024-02-03 07:40] LABS: CREATININE 1.2 mg/dL (0.55-1.3)
[2024-02-03 07:41] LABS: PHOSPHOROUS 4.4 mg/dL (2.5-4.9)
[2024-02-03 07:42] LABS: BILIRUBIN,TOTAL 0.6 mg/dL (0.2-1); TOT PROT 7.9 g/dl (6.4-8.2)
[2024-02-03] MEDS: THIAMINE 100 MG TABLET NGT SCH (09:38)
[2024-02-03] MEDS: ENOXAPARIN NA (PORCINE) 40 MG/0.4 ML DISP.SYRIN SQ SCH (09:38)
[2024-02-03] MEDS: ZINC SULFATE 220 MG CAPSULE (FP) GT SCH (09:38)
[2024-02-03] MEDS: ATORVASTATIN CA 40 MG TABLET (FP) NGT SCH (09:38)
[2024-02-03] MEDS: FOLIC ACID 1 MG TABLET (FP) NGT SCH (09:39)
[2024-02-03] MEDS: AMINO ACIDS/PROTEIN HYDROLYS 30 ML LIQUID.PKT GT SCH (09:45)
[2024-02-03] MEDS: ASCORBIC ACID 500 MG/5 ML UNIT DOSE CUP GT SCH (09:45)
[2024-02-03] MEDS ORDERED: VANCOMYCIN HCL IN 5 % DEXTROSE 1,250 MG/250 ML BAG IV SCH (10:00)
[2024-02-03] MEDS: VANCOMYCIN/WATER 1250 MG 1,250 MG/250 ML BAG IVPB SCH (10:14)
[2024-02-03] MEDS: SODIUM CHLORIDE 1 GM TABLET GT SCH (11:41)
[2024-02-03] MEDS: FUROSEMIDE 40 MG/4 ML INJECTABLE VIAL IVPUSH SCH (13:48)
[2024-02-03] MEDS: DEXTROSE 50%-WATER - 25 GM/50 ML VIAL IVPUSH PRN (16:30)
[2024-02-04] MEDS ORDERED: VANCOMYCIN HCL IN 5 % DEXTROSE 1,250 MG/250 ML BAG IV SCH (10:00)
[2024-02-04] MEDS: PIPERACILLIN/TAZOB 3.375 GM 3.375 GM in DEXTROSE 5%-WATER - 50 ML IVPB SCH (10:34)
[2024-02-04] MEDS ORDERED: DEXTROSE 50%-WATER 25 GM/50 ML DISP.SYRIN ONE (11:03)
[2024-02-04] MEDS: DEXTROSE 50%-WATER - 25 GM/50 ML VIAL IVPUSH PRN (12:35)
[2024-02-04 16:35] LABS: HEMOGLOBIN 7.6 GM/dL (11.7-16.9); MCH 27.2 pg (25.7-33.7); MCHC 31.6 g/dl (32.0-35.9); MEAN PLT VOLUME 7.3 fl (7.5-11.1); PLATELET COUNT 519 10^3/uL (134-434); RBC 2.79 M/mm3 (4.00-5.60); RDW 18.7 % (11.9-15.9)
[2024-02-04 17:01] LABS: CHLORIDE 103 mmol/L (98-107); POTASSIUM 3.6 mmol/L (3.5-5.1); SODIUM 145 mmol/L (136-145)
[2024-02-04 17:03] LABS: ALBUMIN 2.1 g/dl (3.4-5.0); ANION GAP 9 mmol/L (4-13); BLOOD UREA NITROGEN 66.2 mg/dL (7-18); CALCIUM 8.8 mg/dL (8.5-10.1); CO2 33 mmol/L (21-32); GLUCOSE,RANDOM 109 mg/dL (74-106); MAGNESIUM 2.3 mg/dL (1.8-2.4)
[2024-02-04 17:07] LABS: CREATININE 1.6 mg/dL (0.55-1.3); SGOT/AST 24 U/L (15-37); SGPT/ALT 20 U/L (13-61)
[2024-02-04 17:08] LABS: BILIRUBIN,TOTAL 0.8 mg/dL (0.2-1); TOT PROT 7.5 g/dl (6.4-8.2)
[2024-02-04 17:09] LABS: ALK PHOS 170 U/L (45-117)
[2024-02-04 17:15] LABS: N-TERMINAL BNP > 35000.0 pg/ml (5-125)
[2024-02-06 14:22] VITALS: BMI 26.9
[2024-02-06] MEDS: BANATROL PLUS POWDER PACKET GT SCH (17:34)
[2024-02-07 07:17] LABS: HEMATOCRIT 29.6 % (35.4-49); HEMOGLOBIN 9.2 GM/dL (11.7-16.9); MCH 27.5 pg (25.7-33.7); MCHC 31.2 g/dl (32.0-35.9); MEAN CELL VOLUME 88.1 fl (80-96); MEAN PLT VOLUME 7.8 fl (7.5-11.1); PLATELET COUNT 526 10^3/uL (134-434); RBC 3.36 M/mm3 (4.00-5.60); RDW 19.2 % (11.9-15.9); WHITE BLOOD COUNT 13.1 K/mm3 (4.0-10.0)
[2024-02-07 07:21] LABS: POTASSIUM 3.3 mmol/L (3.5-5.1)
[2024-02-07 07:24] LABS: CALCIUM 9.1 mg/dL (8.5-10.1)
[2024-02-07 07:25] LABS: ALBUMIN 2.2 g/dl (3.4-5.0); BLOOD UREA NITROGEN 45.8 mg/dL (7-18); MAGNESIUM 2.3 mg/dL (1.8-2.4)
[2024-02-07 07:28] LABS: CREATININE 1.5 mg/dL (0.55-1.3)
[2024-02-07 07:29] LABS: BILIRUBIN,TOTAL 0.8 mg/dL (0.2-1); TOT PROT 7.7 g/dl (6.4-8.2)
[2024-02-07] MEDS: POTASSIUM CHLORIDE ORAL LIQUID 20 MEQ/15 ML GT ONE (11:22)
[2024-02-07] MEDS: KCL 10 MEQ IVPB 10 MEQ/100 ML INFUS.BAG IVPB SCH (14:57)
[2024-02-08 06:51] LABS: POTASSIUM 3.7 mmol/L (3.5-5.1)
[2024-02-08 06:57] LABS: CALCIUM 8.6 mg/dL (8.5-10.1); MAGNESIUM 2.1 mg/dL (1.8-2.4)
[2024-02-08 07:00] LABS: CREATININE 1.5 mg/dL (0.55-1.3)
[2024-02-08 07:01] LABS: TOT PROT 7.4 g/dl (6.4-8.2)
[2024-02-08 07:10] LABS: BILIRUBIN,TOTAL 0.6 mg/dL (0.2-1)
[2024-02-08] MEDS: PIPERACILLIN/TAZOB 3.375 GM 50 ML IVPB SCH (17:52)
[2024-02-09] MEDS: TORSEMIDE 20 MG TABLET (FP) PO SCH (10:16)
[2024-02-10 07:41] LABS: POTASSIUM 3.3 mmol/L (3.5-5.1)
[2024-02-10 07:47] LABS: BLOOD UREA NITROGEN 47.1 mg/dL (7-18); CALCIUM 8.9 mg/dL (8.5-10.1)
[2024-02-10 07:51] LABS: CREATININE 1.6 mg/dL (0.55-1.3)
[2024-02-10 07:52] LABS: BILIRUBIN,TOTAL 0.6 mg/dL (0.2-1); TOT PROT 7.8 g/dl (6.4-8.2)
[2024-02-10] MEDS: POTASSIUM CHLORIDE ORAL LIQUID 20 MEQ/15 ML PO ONE (17:10)
[2024-02-11 07:36] LABS: POTASSIUM 3.7 mmol/L (3.5-5.1)
[2024-02-11 07:44] LABS: ALBUMIN 2.1 g/dl (3.4-5.0); BLOOD UREA NITROGEN 50.9 mg/dL (7-18); CALCIUM 8.9 mg/dL (8.5-10.1); CREATININE 1.6 mg/dL (0.55-1.3)
[2024-02-11 07:46] LABS: BILIRUBIN,TOTAL 0.6 mg/dL (0.2-1)
[2024-02-11 08:06] LABS: BASO % 1.1 % (0-2.0); EOS % 5.5 % (0-4.5); HEMATOCRIT 24.5 % (35.4-49); HEMOGLOBIN 7.8 GM/dL (11.7-16.9); LYMPH % 18.9 % (8-40); MCHC 31.9 g/dl (32.0-35.9); MEAN CELL VOLUME 87.8 fl (80-96); MEAN PLT VOLUME 8.3 fl (7.5-11.1); MONO % 9.6 % (3.8-10.2); NEUT % 64.9 % (42.8-82.8); PLATELET COUNT 414 10^3/uL (134-434); RBC 2.79 M/mm3 (4.00-5.60); RDW 20.1 % (11.9-15.9); WHITE BLOOD COUNT 12.4 K/mm3 (4.0-10.0)
[2024-02-11] MEDS: IRON SUCROSE INJECTION 200 MG in SODIUM CHLORIDE 100 ML IVPB ONE (11:48)
[2024-02-13 07:54] LABS: BASO % 1.3 % (0-2.0); EOS % 5.9 % (0-4.5); HEMATOCRIT 25.9 % (35.4-49); LYMPH % 17.2 % (8-40); MCH 26.9 pg (25.7-33.7); MCHC 30.8 g/dl (32.0-35.9); MEAN CELL VOLUME 87.3 fl (80-96); MEAN PLT VOLUME 8.5 fl (7.5-11.1); MONO % 11.3 % (3.8-10.2); NEUT % 64.3 % (42.8-82.8); PLATELET COUNT 419 10^3/uL (134-434); RBC 2.96 M/mm3 (4.00-5.60); RDW 20.5 % (11.9-15.9); WHITE BLOOD COUNT 12.5 K/mm3 (4.0-10.0)
[2024-02-13 08:11] LABS: POTASSIUM 3.4 mmol/L (3.5-5.1)
[2024-02-13 08:13] LABS: BLOOD UREA NITROGEN 52.2 mg/dL (7-18); CALCIUM 9.1 mg/dL (8.5-10.1)
[2024-02-13 08:16] LABS: CREATININE 1.6 mg/dL (0.55-1.3)
[2024-02-13 08:18] LABS: BILIRUBIN,TOTAL 0.6 mg/dL (0.2-1); TOT PROT 7.6 g/dl (6.4-8.2)
[2024-02-13 09:51] LABS: ANISOCYTOSIS 1+; MACROCYTOSIS 0
[2024-02-13] MEDS: AMINO ACIDS 4.25%/D5W 1,000 ML IV SCH (17:50)
[2024-02-14 11:20] LABS: BASO % 1.3 % (0-2.0); EOS % 5.7 % (0-4.5); HEMATOCRIT 24.1 % (35.4-49); HEMOGLOBIN 7.6 GM/dL (11.7-16.9); LYMPH % 15.8 % (8-40); MCH 27.1 pg (25.7-33.7); MCHC 31.4 g/dl (32.0-35.9); MEAN CELL VOLUME 86.2 fl (80-96); MEAN PLT VOLUME 8.6 fl (7.5-11.1); MONO % 13.2 % (3.8-10.2); PLATELET COUNT 411 10^3/uL (134-434); RDW 20.1 % (11.9-15.9); WHITE BLOOD COUNT 10.9 K/mm3 (4.0-10.0)
[2024-02-14 11:29] LABS: POTASSIUM 3.2 mmol/L (3.5-5.1)
[2024-02-14 11:34] LABS: ALBUMIN 2.1 g/dl (3.4-5.0); BLOOD UREA NITROGEN 50.9 mg/dL (7-18); CALCIUM 9.4 mg/dL (8.5-10.1)
[2024-02-14 11:38] LABS: CREATININE 1.6 mg/dL (0.55-1.3)
[2024-02-14 11:39] LABS: BILIRUBIN,TOTAL 0.7 mg/dL (0.2-1)
[2024-02-14] MEDS ORDERED: KCL 20 MEQ PREMIX BAG 20 MEQ/100 ML INFUS.BAG IVPB SCH (12:30)
[2024-02-14] MEDS: POTASSIUM CHLORIDE ORAL LIQUID 20 MEQ/15 ML PO ONE (13:02)
[2024-02-14] MEDS: KCL 10 MEQ IVPB 10 MEQ/100 ML INFUS.BAG IVPB SCH (14:28)
[2024-02-15 07:16] LABS: EOS % 4.8 % (0-4.5); HEMATOCRIT 25.4 % (35.4-49); HEMOGLOBIN 7.9 GM/dL (11.7-16.9); MCH 27.3 pg (25.7-33.7); MCHC 31.3 g/dl (32.0-35.9); MEAN CELL VOLUME 87.2 fl (80-96); MEAN PLT VOLUME 8.4 fl (7.5-11.1); MONO % 13.6 % (3.8-10.2); NEUT % 62.6 % (42.8-82.8); PLATELET COUNT 414 10^3/uL (134-434); RBC 2.91 M/mm3 (4.00-5.60); RDW 20.1 % (11.9-15.9); WHITE BLOOD COUNT 10.9 K/mm3 (4.0-10.0)
[2024-02-15 07:30] LABS: POTASSIUM 3.4 mmol/L (3.5-5.1)
[2024-02-15 07:36] LABS: ALBUMIN 2.1 g/dl (3.4-5.0)
[2024-02-15 07:40] LABS: BILIRUBIN,TOTAL 0.6 mg/dL (0.2-1); CREATININE 1.7 mg/dL (0.55-1.3)
[2024-02-16] MEDS: POTASSIUM CHLORIDE ORAL LIQUID 20 MEQ/15 ML PO ONE (10:38)
[2024-02-17 07:51] LABS: POTASSIUM 3.3 mmol/L (3.5-5.1)
[2024-02-17 07:55] LABS: CALCIUM 8.9 mg/dL (8.5-10.1)
[2024-02-17 07:56] LABS: BLOOD UREA NITROGEN 54.4 mg/dL (7-18)
[2024-02-17 07:58] LABS: CREATININE 1.8 mg/dL (0.55-1.3)
[2024-02-17 07:59] LABS: PHOSPHOROUS 2.9 mg/dL (2.5-4.9)
[2024-02-17 08:00] LABS: BILIRUBIN,TOTAL 0.6 mg/dL (0.2-1); TOT PROT 7.8 g/dl (6.4-8.2)
[2024-02-17] MEDS: POTASSIUM CHLORIDE ORAL LIQUID 20 MEQ/15 ML GT ONE (09:58)
[2024-02-18] MEDS: AMINO ACIDS/PROTEIN HYDROLYS 30 ML LIQUID.PKT GT SCH (09:27)
[2024-02-18] MEDS: DOXAZOSIN MESYLATE 1 MG TABLET NGT SCH (09:28)
[2024-02-18] MEDS: TORSEMIDE 20 MG TABLET (FP) PO SCH (09:28)
[2024-02-18] MEDS: ATORVASTATIN CA 40 MG TABLET (FP) NGT SCH (09:29)
[2024-02-18] MEDS: METOPROLOL TARTRATE 50 MG TABLET (FP) GT SCH (09:29)
[2024-02-18] MEDS: FOLIC ACID 1 MG TABLET (FP) NGT SCH (09:29)
[2024-02-18] MEDS: ZINC SULFATE 220 MG CAPSULE (FP) GT SCH (09:30)
[2024-02-18] MEDS: ASCORBIC ACID 500 MG/5 ML UNIT DOSE CUP GT SCH (09:30)
[2024-02-18] MEDS: THIAMINE 100 MG TABLET NGT SCH (09:30)
[2024-02-18] MEDS: POTASSIUM CHLORIDE ORAL LIQUID 20 MEQ/15 ML PEG SCH (09:30)
[2024-02-18 10:09] LABS: POTASSIUM 3.9 mmol/L (3.5-5.1)
[2024-02-18 10:12] LABS: BLOOD UREA NITROGEN 56.4 mg/dL (7-18)
[2024-02-18 10:13] LABS: CALCIUM 9.2 mg/dL (8.5-10.1)
[2024-02-18 10:17] LABS: CREATININE 1.7 mg/dL (0.55-1.3)
[2024-02-18] MEDS: INSULIN ASPART SLIDING SCALE (NOVOLOG) 1 VIAL SQ SCH (11:49)
[2024-02-18 14:01] VITALS: BP 123/73; PULSE 99; RESP 18; TEMP 98.4
[2024-02-18] MEDS: BANATROL PLUS POWDER PACKET GT SCH (16:33)
[2024-02-18] MEDS: SEVELAMER CARBONATE 0.8 GM POWDER PACKET GT SCH (16:33)
== END 2024-02-18 15:49 | DRG 870 ==
LOC: JER 14:36 → JERBED 22:01 → J2W 02-03 02:44 → J5S 02-17 20:32
PROVIDERS: ADMIT Internal Medicine; ATTEND Family Medicine
PROC: 5A1955Z Respiratory Ventilation, Greater than 96 Consecutive Hours (ICD-10-PCS; principal; 2024-02-02)
DX: A41.9 Sepsis, unspecified organism (principal); J18.9 Pneumonia, unspecified organism; R53.2 Functional quadriplegia; J98.11 Atelectasis; J96.10 Chronic respiratory failure, unspecified whether with hypoxia or hypercapnia; R18.8 Other ascites; I24.89 Other forms of acute ischemic heart disease; E87.20 Acidosis, unspecified; K56.7 Ileus, unspecified; I96 Gangrene, not elsewhere classified; Z99.11 Dependence on respirator [ventilator] status; E87.70 Fluid overload, unspecified; Z93.0 Tracheostomy status; E11.22 Type 2 diabetes mellitus with diabetic chronic kidney disease; B37.9 Candidiasis, unspecified; E78.5 Hyperlipidemia, unspecified; D64.9 Anemia, unspecified; E87.6 Hypokalemia
CPT/HCPCS: 0241U-QW; 36415; 71045-TC-FY; 74018-TC-FY; 74019-TC-FY; 74176-TC; 76705-TC; 76775-TC; 80048; 80053; 81003; 82272; 82550; 82728; 82962; 83540; 83550; 83605; 83690; 83735; 83880; 84100; 84466; 84484; 85025; 85027; 87040; 87070; 87077; 87086; 87186; 87205; 87324; 87425; 87449; 87481; 87798; 93005; 93010; 94002; 97162-GP; 99285-25; J1756; J3370

== ENCOUNTER 2024-03-13 18:47 | Inpatient (IN) | payer OTHER ==
[2024-03-13 20:23] LABS: BASO % 0.6 % (0-2.0); EOS % 1.4 % (0-4.5); HEMATOCRIT 24.7 % (35.4-49); HEMOGLOBIN 7.8 GM/dL (11.7-16.9); LYMPH % 11.9 % (8-40); MCH 26.2 pg (25.7-33.7); MCHC 31.7 g/dl (32.0-35.9); MEAN CELL VOLUME 82.8 fl (80-96); MEAN PLT VOLUME 7.2 fl (7.5-11.1); MONO % 10.1 % (3.8-10.2); PLATELET COUNT 562 10^3/uL (134-434); RBC 2.99 M/mm3 (4.00-5.60); RDW 19.8 % (11.9-15.9); WHITE BLOOD COUNT 10.5 K/mm3 (4.0-10.0)
[2024-03-13 20:32] LABS: INR 1.49 (0.83-1.09); PROTHROMBIN TIME (PATIENT) 16.9 SEC (9.7-13.0)
[2024-03-13 20:35] LABS: ACTIVATED PTT 33.5 SECONDS (25.2-36.5)
[2024-03-13 20:40] LABS: POTASSIUM 4.8 mmol/L (3.5-5.1)
[2024-03-13 20:41] LABS: ALBUMIN 2.1 g/dl (3.4-5.0); BLOOD UREA NITROGEN 63.4 mg/dL (7-18); CALCIUM 9.2 mg/dL (8.5-10.1)
[2024-03-13 20:45] LABS: CREATININE 1.7 mg/dL (0.55-1.3)
[2024-03-13 20:47] LABS: BILIRUBIN,TOTAL 0.6 mg/dL (0.2-1); TOT PROT 8.3 g/dl (6.4-8.2)
[2024-03-13 22:20] LABS: HIV INTERPRETATION NEGATIVE (NEGATIVE)
[2024-03-14] MEDS: PANTOPRAZOLE SODIUM 40 MG VIAL IVPUSH ONE (01:58)
[2024-03-14] MEDS: PIPERACILLIN/TAZOB 4.5 GM 4.5 GM in DEXTROSE 5%-WATER 100 ML IVPB ONE (01:58)
[2024-03-14] MEDS ORDERED: PIPERACILLIN/TAZOB 4.5 GM 4.5 GM/100 ML BAG IVPB ONE ×2 (02:00→10:08)
[2024-03-14] MEDS ORDERED: PANTOPRAZOLE SODIUM 40 MG VIAL ONE (02:01)
[2024-03-14] MEDS ORDERED: ALBUTEROL SO4 2.5/IPRATROPIUM 0.5 INH SOL 3 ML VIAL.NEB. NEB PRN (03:38)
[2024-03-14] MEDS: VANCOMYCIN 1,000 MG in DEXTROSE 5%-WATER - 250 ML IVPB ONE (05:09)
[2024-03-14] MEDS: SODIUM CHLORIDE 1,000 ML IV SCH (05:10)
[2024-03-14] MEDS ORDERED: VANCOMYCIN 1 GM PREMIX (F) 1 GM/200 ML BAG ONE ×2 (05:14→05:18)
[2024-03-14] MEDS: SEVELAMER CARBONATE 0.8 GM POWDER PACKET GT SCH (09:45)
[2024-03-14] MEDS ORDERED: PIPERACILLIN/TAZOB 4.5 GM 4.5 GM in DEXTROSE 5%-WATER 100 ML IVPB SCH (10:00)
[2024-03-14] MEDS: INSULIN ASPART SLIDING SCALE (NOVOLOG) 1 VIAL SQ SCH (10:03)
[2024-03-14] MEDS ORDERED: POLYETHYLENE GLYCOL (HEALTHYLAX) 3350 17 GM PACKET ONE (10:08)
[2024-03-14] MEDS: THIAMINE 100 MG TABLET NGT SCH (10:55)
[2024-03-14] MEDS: TORSEMIDE 20 MG TABLET (FP) PO SCH (10:55)
[2024-03-14] MEDS: METOPROLOL TARTRATE 25 MG TABLET (FP) GT SCH (10:55)
[2024-03-14] MEDS: PIPERACILLIN/TAZOB 4.5 GM 4.5 GM in DEXTROSE 5%-WATER 100 ML IVPB SCH (10:55)
[2024-03-14] MEDS: POLYETHYLENE GLYCOL (HEALTHYLAX) 3350 17 GM PACKET GT SCH (10:55)
[2024-03-14] MEDS: FOLIC ACID 1 MG TABLET (FP) NGT SCH (10:55)
[2024-03-14] MEDS: PANTOPRAZOLE SODIUM 40 MG VIAL IVPUSH SCH (11:44)
[2024-03-14 11:50] LABS: BASO % 0.4 % (0-2.0); EOS % 4.9 % (0-4.5); HEMATOCRIT 23.7 % (35.4-49); HEMOGLOBIN 7.7 GM/dL (11.7-16.9); LYMPH % 13.9 % (8-40); MCH 26.7 pg (25.7-33.7); MCHC 32.3 g/dl (32.0-35.9); MEAN CELL VOLUME 82.7 fl (80-96); MEAN PLT VOLUME 7.1 fl (7.5-11.1); MONO % 13.9 % (3.8-10.2); NEUT % 66.9 % (42.8-82.8); PLATELET COUNT 528 10^3/uL (134-434); RBC 2.87 M/mm3 (4.00-5.60); RDW 19.7 % (11.9-15.9); WHITE BLOOD COUNT 9.1 K/mm3 (4.0-10.0)
[2024-03-14 12:04] LABS: POTASSIUM 4.4 mmol/L (3.5-5.1)
[2024-03-14 12:07] LABS: BLOOD UREA NITROGEN 58.9 mg/dL (7-18); MAGNESIUM 2.9 mg/dL (1.8-2.4)
[2024-03-14 12:10] LABS: CREATININE 1.6 mg/dL (0.55-1.3); PHOSPHOROUS 5.6 mg/dL (2.5-4.9)
[2024-03-14 12:11] LABS: BILIRUBIN,TOTAL 0.6 mg/dL (0.2-1); TOT PROT 7.9 g/dl (6.4-8.2)
[2024-03-14 12:44] LABS: PH,URINE >= 9.0 (5.0-8.0); URINE APPEARANCE CLEAR; URINE BILIRUBIN NEGATIVE (NEGATIVE); URINE COLOR YELLOW; URINE GLUCOSE (UA) NEGATIVE (NEGATIVE); URINE KETONE NEGATIVE (NEGATIVE); URINE LEUK ESTERASE 2+ (NEGATIVE); URINE NITRITE NEGATIVE (NEGATIVE); URINE PROTEIN 2+ (NEGATIVE); URINE UROBILINOGEN 0.2 mg/dL (0.2-1.0)
[2024-03-14 13:28] LABS: EPI CELLS 33 /uL (0-25.1); HYALINE CASTS 1 /uL (0-3.1); URINE BACTERIA 8183 /uL (0-1359); URINE CRYSTALS PRESENT /hpf; URINE RBC 8 /uL (0-23.9); URINE WBC 85 /uL (0-25.8)
[2024-03-14] MEDS ORDERED: SENNOSIDES 8.8 MG/5 ML SYRUP GT SCH (22:00)
[2024-03-15] MEDS: DOXAZOSIN MESYLATE 1 MG TABLET NGT SCH (00:37)
[2024-03-15] MEDS: SENNOSIDES 8.8 MG/5 ML SYRUP GT SCH ×2 (00:37→22:10)
[2024-03-15] MEDS: ATORVASTATIN CA 40 MG TABLET (FP) NGT SCH (00:37)
[2024-03-15] MEDS ORDERED: METOPROLOL TARTRATE 50 MG TABLET (FP) ONE ×2 (00:39→22:08)
[2024-03-15] MEDS ORDERED: METOPROLOL TARTRATE 25 MG TABLET (FP) ONE ×2 (00:39→22:07)
[2024-03-15] MEDS ORDERED: PIPERACILLIN/TAZOB 4.5 GM 4.5 GM/100 ML BAG IVPB ONE ×2 (05:21→10:53)
[2024-03-15 06:52] LABS: HEMATOCRIT 22.5 % (35.4-49); HEMOGLOBIN 7.1 GM/dL (11.7-16.9); MCH 26.4 pg (25.7-33.7); MCHC 31.5 g/dl (32.0-35.9); MEAN CELL VOLUME 83.8 fl (80-96); MEAN PLT VOLUME 7.5 fl (7.5-11.1); PLATELET COUNT 564 10^3/uL (134-434); RBC 2.68 M/mm3 (4.00-5.60); RDW 19.8 % (11.9-15.9); WHITE BLOOD COUNT 9.4 K/mm3 (4.0-10.0)
[2024-03-15 07:12] LABS: POTASSIUM 4.6 mmol/L (3.5-5.1)
[2024-03-15 07:14] LABS: BLOOD UREA NITROGEN 59.7 mg/dL (7-18); MAGNESIUM 2.8 mg/dL (1.8-2.4)
[2024-03-15 07:17] LABS: CREATININE 1.8 mg/dL (0.55-1.3); PHOSPHOROUS 5.7 mg/dL (2.5-4.9)
[2024-03-15 07:18] LABS: BILIRUBIN,TOTAL 0.6 mg/dL (0.2-1); TOT PROT 7.9 g/dl (6.4-8.2)
[2024-03-15] MEDS ORDERED: PANTOPRAZOLE SODIUM 40 MG VIAL ONE (10:53)
[2024-03-15] MEDS: PANTOPRAZOLE SODIUM 40 MG VIAL IVPUSH SCH (11:19)
[2024-03-15] MEDS ORDERED: ATORVASTATIN CA 40 MG TABLET (FP) ONE (22:08)
[2024-03-15] MEDS ORDERED: SENNOSIDES 8.6MG TABLET (FP) PO ONE (22:08)
[2024-03-16 08:11] LABS: POTASSIUM 4.3 mmol/L (3.5-5.1)
[2024-03-16 08:13] LABS: BLOOD UREA NITROGEN 53.8 mg/dL (7-18); CALCIUM 9.2 mg/dL (8.5-10.1)
[2024-03-16 08:16] LABS: CREATININE 1.9 mg/dL (0.55-1.3)
[2024-03-16 08:28] LABS: INR 1.41 (0.83-1.09); PROTHROMBIN TIME (PATIENT) 15.8 SEC (9.7-13.0)
[2024-03-16 08:52] LABS: BASO % 1.3 % (0-2.0); EOS % 6.9 % (0-4.5); HEMATOCRIT 22.4 % (35.4-49); HEMOGLOBIN 7.2 GM/dL (11.7-16.9); LYMPH % 15.7 % (8-40); MCH 26.7 pg (25.7-33.7); MCHC 32.2 g/dl (32.0-35.9); MEAN CELL VOLUME 82.9 fl (80-96); MEAN PLT VOLUME 7.3 fl (7.5-11.1); MONO % 15.8 % (3.8-10.2); NEUT % 60.3 % (42.8-82.8); PLATELET COUNT 563 10^3/uL (134-434); RDW 19.8 % (11.9-15.9); WHITE BLOOD COUNT 8.8 K/mm3 (4.0-10.0)
[2024-03-16] MEDS ORDERED: PANTOPRAZOLE SODIUM 40 MG VIAL ONE (09:51)
[2024-03-16] MEDS ORDERED: FOLIC ACID 1 MG TABLET (FP) ONE (09:51)
[2024-03-16] MEDS: METOPROLOL TARTRATE 50 MG TABLET (FP) PO ONE (11:25)
[2024-03-16] MEDS: METOPROLOL TARTRATE 50 MG TABLET (FP) GT SCH (21:36)
[2024-03-17 10:13] LABS: BASO % 0.9 % (0-2.0); EOS % 5.6 % (0-4.5); HEMATOCRIT 22.5 % (35.4-49); HEMOGLOBIN 7.4 GM/dL (11.7-16.9); LYMPH % 19.9 % (8-40); MCH 26.9 pg (25.7-33.7); MCHC 32.7 g/dl (32.0-35.9); MEAN CELL VOLUME 82.3 fl (80-96); MONO % 14.4 % (3.8-10.2); NEUT % 59.2 % (42.8-82.8); PLATELET COUNT 549 10^3/uL (134-434); RBC 2.74 M/mm3 (4.00-5.60); RDW 19.8 % (11.9-15.9); WHITE BLOOD COUNT 9.2 K/mm3 (4.0-10.0)
[2024-03-17 10:57] LABS: ALBUMIN 2.2 g/dl (3.4-5.0); CALCIUM 9.1 mg/dL (8.5-10.1)
[2024-03-17 10:58] LABS: BLOOD UREA NITROGEN 47.6 mg/dL (7-18)
[2024-03-17 11:01] LABS: CREATININE 1.8 mg/dL (0.55-1.3)
[2024-03-17 11:02] LABS: BILIRUBIN,TOTAL 0.5 mg/dL (0.2-1)
[2024-03-17 11:03] LABS: TOT PROT 8.2 g/dl (6.4-8.2)
[2024-03-17] MEDS: POVIDONE-IODINE 10% SOLN 118 ML BOTTLE TP ONE (16:54)
[2024-03-19 15:25] VITALS: BMI 28.1
[2024-03-20 10:22] LABS: BASO % 1.1 % (0-2.0); EOS % 7.1 % (0-4.5); HEMATOCRIT 22.6 % (35.4-49); HEMOGLOBIN 7.3 GM/dL (11.7-16.9); LYMPH % 20.5 % (8-40); MCH 26.9 pg (25.7-33.7); MCHC 32.4 g/dl (32.0-35.9); NEUT % 58.3 % (42.8-82.8); PLATELET COUNT 561 10^3/uL (134-434); RBC 2.72 M/mm3 (4.00-5.60); RDW 19.4 % (11.9-15.9); WHITE BLOOD COUNT 10.7 K/mm3 (4.0-10.0)
[2024-03-20 10:43] LABS: POTASSIUM 4.1 mmol/L (3.5-5.1)
[2024-03-20 10:49] LABS: CALCIUM 8.8 mg/dL (8.5-10.1)
[2024-03-20 10:50] LABS: ALBUMIN 2.1 g/dl (3.4-5.0); BLOOD UREA NITROGEN 41.8 mg/dL (7-18); MAGNESIUM 2.1 mg/dL (1.8-2.4)
[2024-03-20 10:53] LABS: CREATININE 1.6 mg/dL (0.55-1.3)
[2024-03-20 10:54] LABS: BILIRUBIN,TOTAL 0.4 mg/dL (0.2-1)
[2024-03-21 09:19] LABS: BASO % 1.3 % (0-2.0); EOS % 5.3 % (0-4.5); HEMATOCRIT 22.3 % (35.4-49); HEMOGLOBIN 7.1 GM/dL (11.7-16.9); LYMPH % 18.2 % (8-40); MCH 26.2 pg (25.7-33.7); MCHC 31.9 g/dl (32.0-35.9); MEAN CELL VOLUME 82.3 fl (80-96); MEAN PLT VOLUME 7.3 fl (7.5-11.1); MONO % 12.7 % (3.8-10.2); NEUT % 62.5 % (42.8-82.8); PLATELET COUNT 589 10^3/uL (134-434); RBC 2.71 M/mm3 (4.00-5.60); RDW 19.3 % (11.9-15.9); WHITE BLOOD COUNT 12.4 K/mm3 (4.0-10.0)
[2024-03-21 09:41] LABS: POTASSIUM 4.2 mmol/L (3.5-5.1)
[2024-03-21 10:03] LABS: BLOOD UREA NITROGEN 40.5 mg/dL (7-18); CALCIUM 8.8 mg/dL (8.5-10.1)
[2024-03-21 10:07] LABS: CREATININE 1.5 mg/dL (0.55-1.3)
[2024-03-21 10:08] LABS: BILIRUBIN,TOTAL 0.5 mg/dL (0.2-1)
[2024-03-21] MEDS: IRON SUCROSE INJECTION 100 MG in SODIUM CHLORIDE 95 ML IVPB ONE (19:10)
[2024-03-22 09:38] LABS: BASO % 0.7 % (0-2.0); EOS % 5.6 % (0-4.5); HEMATOCRIT 22.9 % (35.4-49); HEMOGLOBIN 7.5 GM/dL (11.7-16.9); LYMPH % 17.5 % (8-40); MCH 26.6 pg (25.7-33.7); MCHC 32.7 g/dl (32.0-35.9); MEAN CELL VOLUME 81.2 fl (80-96); MEAN PLT VOLUME 7.2 fl (7.5-11.1); MONO % 14.2 % (3.8-10.2); PLATELET COUNT 603 10^3/uL (134-434); RBC 2.83 M/mm3 (4.00-5.60); RDW 19.5 % (11.9-15.9); WHITE BLOOD COUNT 10.9 K/mm3 (4.0-10.0)
[2024-03-22 10:04] LABS: POTASSIUM 3.9 mmol/L (3.5-5.1)
[2024-03-22 10:19] LABS: ALBUMIN 2.1 g/dl (3.4-5.0); BLOOD UREA NITROGEN 42.8 mg/dL (7-18); CREATININE 1.6 mg/dL (0.55-1.3); MAGNESIUM 1.9 mg/dL (1.8-2.4)
[2024-03-22 10:21] LABS: BILIRUBIN,TOTAL 0.5 mg/dL (0.2-1); TOT PROT 8.4 g/dl (6.4-8.2)
[2024-03-22 10:22] LABS: CALCIUM 9.1 mg/dL (8.5-10.1)
[2024-03-22 14:23] VITALS: BP 125/69; PULSE 78; RESP 17; TEMP 98.9
[2024-03-22] MEDS ORDERED: IRON SUCROSE INJECTION 200 MG in SODIUM CHLORIDE 100 ML IVPB ONE (19:00)
== END 2024-03-22 14:39 | DRG 377 ==
LOC: JER 18:47 → JERBED 03-14 00:09 → J5S 03-16 19:44
PROVIDERS: ADMIT Internal Medicine; ATTEND Nurse Practitioner Family
PROC: 5A1955Z Respiratory Ventilation, Greater than 96 Consecutive Hours (ICD-10-PCS; principal; 2024-03-13)
DX: K92.2 Gastrointestinal hemorrhage, unspecified (principal); R53.2 Functional quadriplegia; J96.10 Chronic respiratory failure, unspecified whether with hypoxia or hypercapnia; I96 Gangrene, not elsewhere classified; J98.11 Atelectasis; D62 Acute posthemorrhagic anemia; I13.0 Hypertensive heart and chronic kidney disease with heart failure and stage 1 through stage 4 chronic kidney disease, or unspecified chronic kidney disease; I50.22 Chronic systolic (congestive) heart failure; I24.89 Other forms of acute ischemic heart disease; L89.326 Pressure-induced deep tissue damage of left buttock; L89.316 Pressure-induced deep tissue damage of right buttock; L89.152 Pressure ulcer of sacral region, stage 2; E78.5 Hyperlipidemia, unspecified; J45.909 Unspecified asthma, uncomplicated; E11.9 Type 2 diabetes mellitus without complications; R11.10 Vomiting, unspecified; K21.9 Gastro-esophageal reflux disease without esophagitis; E87.70 Fluid overload, unspecified; K57.90 Diverticulosis of intestine, part unspecified, without perforation or abscess without bleeding; I45.10 Unspecified right bundle-branch block; E11.22 Type 2 diabetes mellitus with diabetic chronic kidney disease; N18.9 Chronic kidney disease, unspecified; D50.9 Iron deficiency anemia, unspecified; K70.30 Alcoholic cirrhosis of liver without ascites; I48.91 Unspecified atrial fibrillation
CPT/HCPCS: 0241U-QW; 36415; 71045-TC-FY; 74177-TC; 80048; 80053; 81003; 82272; 82550; 82962; 83540; 83550; 83605; 83735; 83880; 84100; 84484; 85025; 85027; 85610; 85730; 86803; 86850; 86900; 86901; 87389; 87481; 87635; 93005; 93010; 93306-TC; 94002; 97162-GP; 99285-25; J1756

== ENCOUNTER 2024-04-28 06:58 | Inpatient (IN) | payer OTHER ==
[2024-04-28 07:34] VITALS: BMI 26.6
[2024-04-28 09:04] LABS: POTASSIUM 4.8 mmol/L (3.5-5.1)
[2024-04-28 09:07] LABS: BLOOD UREA NITROGEN 64.3 mg/dL (7-18); MAGNESIUM 2.8 mg/dL (1.8-2.4)
[2024-04-28] MEDS: SODIUM CHLORIDE 500 ML IV STA (09:10)
[2024-04-28 09:11] LABS: BILIRUBIN,TOTAL 0.4 mg/dL (0.2-1); TOT PROT 8.9 g/dl (6.4-8.2)
[2024-04-28 09:14] LABS: BASO % 0.9 % (0-2.0); EOS % 4.6 % (0-4.5); HEMATOCRIT 24.2 % (35.4-49); HEMOGLOBIN 7.4 GM/dL (11.7-16.9); LYMPH % 16.8 % (8-40); MCH 24.2 pg (25.7-33.7); MCHC 30.5 g/dl (32.0-35.9); MEAN CELL VOLUME 79.4 fl (80-96); MEAN PLT VOLUME 7.3 fl (7.5-11.1); MONO % 16.7 % (3.8-10.2); PLATELET COUNT 579 10^3/uL (134-434); RBC 3.05 M/mm3 (4.00-5.60); RDW 19.5 % (11.9-15.9); WHITE BLOOD COUNT 12.7 K/mm3 (4.0-10.0)
[2024-04-28] MEDS ORDERED: CEFTRIAXONE 2 GM-D5W BAG 2 GM/50 ML BAG IVPB ONE (17:34)
[2024-04-28] MEDS: CEFTRIAXONE 2 GM-D5W BAG 2 GM/50 ML BAG IVPB SCH (17:36)
[2024-04-28] MEDS: NADOLOL 40 MG TABLET (FP) PO SCH (18:25)
[2024-04-28] MEDS ORDERED: ALBUTEROL SO4 2.5/IPRATROPIUM 0.5 INH SOL 3 ML VIAL.NEB. NEB PRN (19:37)
[2024-04-28] MEDS: HEPARIN NA (PORCINE) 5,000 UNITS/ML 1ML VIAL SQ SCH (23:06)
[2024-04-28] MEDS: INSULIN ASPART SLIDING SCALE (NOVOLOG) 1 VIAL SQ SCH (23:18)
[2024-04-28] MEDS: DEXTROSE 50%-WATER 25 GM/50 ML DISP.SYRIN IVPUSH ONE (23:28)
[2024-04-29] MEDS ORDERED: NADOLOL 20 MG TABLET (FP) ONE (08:22)
[2024-04-29] MEDS: PANTOPRAZOLE SODIUM 40 MG VIAL IVPUSH SCH (09:21)
[2024-04-29] MEDS: FOLIC ACID 1 MG TABLET (FP) NGT SCH (09:21)
[2024-04-29 09:50] LABS: BASO % 1.1 % (0-2.0); EOS % 7.6 % (0-4.5); HEMATOCRIT 24.6 % (35.4-49); HEMOGLOBIN 7.8 GM/dL (11.7-16.9); INR 1.6 (0.83-1.09); LYMPH % 16.2 % (8-40); MCH 24.7 pg (25.7-33.7); MCHC 31.7 g/dl (32.0-35.9); MEAN CELL VOLUME 78.1 fl (80-96); MEAN PLT VOLUME 7.2 fl (7.5-11.1); MONO % 14.7 % (3.8-10.2); NEUT % 60.4 % (42.8-82.8); PLATELET COUNT 582 10^3/uL (134-434); PROTHROMBIN TIME (PATIENT) 17.4 SEC (9.7-13.0); RBC 3.15 M/mm3 (4.00-5.60); RDW 19.6 % (11.9-15.9); WHITE BLOOD COUNT 9.4 K/mm3 (4.0-10.0)
[2024-04-29 09:53] LABS: ACTIVATED PTT 32.7 SECONDS (25.2-36.5)
[2024-04-29 10:11] LABS: POTASSIUM 4.2 mmol/L (3.5-5.1)
[2024-04-29 10:18] LABS: BLOOD UREA NITROGEN 56.4 mg/dL (7-18); CALCIUM 9.1 mg/dL (8.5-10.1); MAGNESIUM 2.7 mg/dL (1.8-2.4)
[2024-04-29 10:21] LABS: CREATININE 1.8 mg/dL (0.55-1.3); PHOSPHOROUS 5.1 mg/dL (2.5-4.9)
[2024-04-29 10:23] LABS: BILIRUBIN,TOTAL 0.4 mg/dL (0.2-1); TOT PROT 8.8 g/dl (6.4-8.2)
[2024-04-29] MEDS: IRON SUCROSE INJECTION 200 MG in SODIUM CHLORIDE 100 ML IVPB ONE (13:53)
[2024-04-29 16:04] LABS: BF WBC & OTHER NUCLEATED CELLS 952 /mm3; BODY FLUID BASOPHIL 1 %; BODY FLUID MACROPHAGES 40 %; BODY FLUID MESOTHELIAL 1 %; BODYL FLD EOSINOPHIL 2 %
[2024-04-29] MEDS ORDERED: ACETAMINOPHEN 325 MG TABLET (FP) PO PRN (16:52)
[2024-04-29] MEDS ORDERED: ACETAMINOPHEN 650 MG/20.3 ML ORAL SOLUTION (CUPS) GT PRN (17:13)
[2024-04-29] MEDS: METOPROLOL TARTRATE 25 MG TABLET (FP) GT SCH (21:21)
[2024-04-29] MEDS: ATORVASTATIN CA 40 MG TABLET (FP) NGT SCH (21:21)
[2024-04-29] MEDS: AMMONIUM LACTATE 12% LOTION 225 GM BOTTLE TP SCH (21:22)
[2024-04-30 09:58] LABS: HEMATOCRIT 25.3 % (35.4-49); HEMOGLOBIN 8.1 GM/dL (11.7-16.9); MCHC 32.1 g/dl (32.0-35.9); MEAN CELL VOLUME 77.8 fl (80-96); MEAN PLT VOLUME 7.3 fl (7.5-11.1); PLATELET COUNT 587 10^3/uL (134-434); RBC 3.25 M/mm3 (4.00-5.60); RDW 19.6 % (11.9-15.9); WHITE BLOOD COUNT 9.2 K/mm3 (4.0-10.0)
[2024-04-30 10:14] LABS: POTASSIUM 4.3 mmol/L (3.5-5.1)
[2024-04-30 10:22] LABS: ALBUMIN 1.9 g/dl (3.4-5.0); MAGNESIUM 2.5 mg/dL (1.8-2.4)
[2024-04-30 10:24] LABS: PHOSPHOROUS 4.8 mg/dL (2.5-4.9)
[2024-04-30 10:25] LABS: CREATININE 1.8 mg/dL (0.55-1.3)
[2024-04-30 10:27] LABS: BILIRUBIN,TOTAL 0.4 mg/dL (0.2-1); TOT PROT 8.6 g/dl (6.4-8.2)
[2024-04-30] MEDS: PANTOPRAZOLE SOD 40 MG SUSPENSION PACKET PO SCH (11:00)
[2024-04-30] MEDS: POLYETHYLENE GLYCOL (HEALTHYLAX) 3350 17 GM PACKET GT SCH (11:00)
[2024-04-30] MEDS: TORSEMIDE 20 MG TABLET (FP) NR SCH (11:03)
[2024-04-30] MEDS: DOXAZOSIN MESYLATE 1 MG TABLET GT SCH (11:04)
[2024-04-30] MEDS: IRON SUCROSE INJECTION 200 MG in SODIUM CHLORIDE 100 ML IVPB ONE (11:32)
[2024-04-30 15:09] LABS: BODY FLUID ALBUMIN 2.4 g/dL (Not Estab.)
[2024-05-01 08:51] LABS: HEMATOCRIT 25.8 % (35.4-49); HEMOGLOBIN 8.1 GM/dL (11.7-16.9); MCH 24.8 pg (25.7-33.7); MCHC 31.6 g/dl (32.0-35.9); MEAN CELL VOLUME 78.6 fl (80-96); MEAN PLT VOLUME 7.5 fl (7.5-11.1); PLATELET COUNT 598 10^3/uL (134-434); RBC 3.28 M/mm3 (4.00-5.60); RDW 19.3 % (11.9-15.9); WHITE BLOOD COUNT 9.4 K/mm3 (4.0-10.0)
[2024-05-01 09:05] LABS: POTASSIUM 4.5 mmol/L (3.5-5.1)
[2024-05-01 09:07] LABS: BLOOD UREA NITROGEN 47.5 mg/dL (7-18); CALCIUM 8.6 mg/dL (8.5-10.1)
[2024-05-01 09:08] LABS: MAGNESIUM 2.3 mg/dL (1.8-2.4)
[2024-05-01 09:11] LABS: CREATININE 1.9 mg/dL (0.55-1.3); PHOSPHOROUS 4.2 mg/dL (2.5-4.9)
[2024-05-01] MEDS: IRON SUCROSE INJECTION 200 MG in SODIUM CHLORIDE 100 ML IVPB ONE (10:32)
[2024-05-02 09:33] LABS: EOS % 7.9 % (0-4.5); HEMATOCRIT 26.1 % (35.4-49); HEMOGLOBIN 8.2 GM/dL (11.7-16.9); LYMPH % 15.3 % (8-40); MCH 24.7 pg (25.7-33.7); MCHC 31.4 g/dl (32.0-35.9); MEAN CELL VOLUME 78.7 fl (80-96); MEAN PLT VOLUME 7.4 fl (7.5-11.1); MONO % 15.3 % (3.8-10.2); NEUT % 60.5 % (42.8-82.8); PLATELET COUNT 603 10^3/uL (134-434); RBC 3.31 M/mm3 (4.00-5.60); RDW 18.9 % (11.9-15.9); WHITE BLOOD COUNT 10.3 K/mm3 (4.0-10.0)
[2024-05-02 09:48] LABS: POTASSIUM 4.1 mmol/L (3.5-5.1)
[2024-05-02 09:51] LABS: ALBUMIN 1.9 g/dl (3.4-5.0); CALCIUM 8.6 mg/dL (8.5-10.1)
[2024-05-02 09:52] LABS: MAGNESIUM 2.1 mg/dL (1.8-2.4)
[2024-05-02 09:55] LABS: CREATININE 1.9 mg/dL (0.55-1.3); PHOSPHOROUS 3.8 mg/dL (2.5-4.9)
[2024-05-02 09:57] LABS: BILIRUBIN,TOTAL 0.3 mg/dL (0.2-1); TOT PROT 8.6 g/dl (6.4-8.2)
[2024-05-03 09:54] LABS: POTASSIUM 4.1 mmol/L (3.5-5.1)
[2024-05-03 10:17] LABS: ALBUMIN 1.9 g/dl (3.4-5.0); BLOOD UREA NITROGEN 38.3 mg/dL (7-18); CALCIUM 8.7 mg/dL (8.5-10.1); MAGNESIUM 1.9 mg/dL (1.8-2.4)
[2024-05-03 10:20] LABS: CREATININE 1.8 mg/dL (0.55-1.3); PHOSPHOROUS 3.6 mg/dL (2.5-4.9)
[2024-05-03 10:22] LABS: BASO % 0.8 % (0-2.0); BILIRUBIN,TOTAL 0.3 mg/dL (0.2-1); EOS % 5.8 % (0-4.5); HEMATOCRIT 25.6 % (35.4-49); HEMOGLOBIN 7.9 GM/dL (11.7-16.9); LYMPH % 17.8 % (8-40); MCHC 30.9 g/dl (32.0-35.9); MEAN CELL VOLUME 77.7 fl (80-96); MEAN PLT VOLUME 7.5 fl (7.5-11.1); MONO % 13.5 % (3.8-10.2); NEUT % 62.1 % (42.8-82.8); PLATELET COUNT 618 10^3/uL (134-434); RDW 19.2 % (11.9-15.9); TOT PROT 8.5 g/dl (6.4-8.2); WHITE BLOOD COUNT 12.7 K/mm3 (4.0-10.0)
[2024-05-03] MEDS: VANCOMYCIN ORAL SOLUTION 125 MG/2.5 ML PO SCH (15:14)
[2024-05-03] MEDS: BANATROL PLUS POWDER PACKET PO SCH (15:50)
[2024-05-04] MEDS: VANCOMYCIN HCL 125 MG CAPSULE (RESTRICTED TO ID ONLY) PO SCH (00:05)
[2024-05-04 10:15] LABS: BASO % 1.2 % (0-2.0); EOS % 8.7 % (0-4.5); HEMATOCRIT 26.3 % (35.4-49); HEMOGLOBIN 8.3 GM/dL (11.7-16.9); MCH 24.7 pg (25.7-33.7); MCHC 31.6 g/dl (32.0-35.9); MEAN CELL VOLUME 78.1 fl (80-96); MEAN PLT VOLUME 7.6 fl (7.5-11.1); MONO % 14.8 % (3.8-10.2); NEUT % 57.3 % (42.8-82.8); PLATELET COUNT 592 10^3/uL (134-434); RBC 3.37 M/mm3 (4.00-5.60); RDW 19.4 % (11.9-15.9); WHITE BLOOD COUNT 10.7 K/mm3 (4.0-10.0)
[2024-05-04 10:42] LABS: ALBUMIN 1.9 g/dl (3.4-5.0); BLOOD UREA NITROGEN 36.1 mg/dL (7-18); POTASSIUM 3.6 mmol/L (3.5-5.1)
[2024-05-04 10:45] LABS: CALCIUM 8.7 mg/dL (8.5-10.1); MAGNESIUM 1.8 mg/dL (1.8-2.4)
[2024-05-04 10:46] LABS: CREATININE 1.8 mg/dL (0.55-1.3); PHOSPHOROUS 3.9 mg/dL (2.5-4.9)
[2024-05-04 10:47] LABS: BILIRUBIN,TOTAL 0.3 mg/dL (0.2-1); TOT PROT 8.2 g/dl (6.4-8.2)
[2024-05-04] MEDS ORDERED: INSULIN ASPART SLIDING SCALE (NOVOLOG) 1 VIAL SQ ONE (18:38)
[2024-05-04] MEDS: PANTOPRAZOLE 40 MG TABLET PO ONE (22:11)
[2024-05-05] MEDS: PANTOPRAZOLE 40 MG TABLET PO SCH (11:09)
[2024-05-07] MEDS: TORSEMIDE 20 MG TABLET (FP) PO SCH (09:56)
[2024-05-07] MEDS ORDERED: ACETAMINOPHEN 650 MG/20.3 ML ORAL SOLUTION (CUPS) PO PRN (11:57)
[2024-05-07] MEDS: ATORVASTATIN CA 40 MG TABLET (FP) PO SCH (21:41)
[2024-05-07] MEDS: METOPROLOL TARTRATE 50 MG TABLET (FP) PO SCH (21:41)
[2024-05-08] MEDS ORDERED: METOPROLOL TARTRATE 50 MG TABLET (FP) PO SCH (01:08)
[2024-05-08] MEDS: FOLIC ACID 1 MG TABLET (FP) PO SCH (09:02)
[2024-05-08] MEDS: METOPROLOL TARTRATE 25 MG TABLET (FP) PO SCH (09:02)
[2024-05-08] MEDS: DOXAZOSIN MESYLATE 1 MG TABLET PO SCH (09:02)
[2024-05-09 09:28] LABS: BASO % 1.1 % (0-2.0); EOS % 5.6 % (0-4.5); HEMATOCRIT 26.5 % (35.4-49); HEMOGLOBIN 8.6 GM/dL (11.7-16.9); LYMPH % 17.8 % (8-40); MCH 25.1 pg (25.7-33.7); MCHC 32.6 g/dl (32.0-35.9); MEAN CELL VOLUME 77.1 fl (80-96); MEAN PLT VOLUME 7.3 fl (7.5-11.1); MONO % 12.9 % (3.8-10.2); NEUT % 62.6 % (42.8-82.8); PLATELET COUNT 557 10^3/uL (134-434); RBC 3.44 M/mm3 (4.00-5.60); RDW 20.4 % (11.9-15.9); WHITE BLOOD COUNT 9.6 K/mm3 (4.0-10.0)
[2024-05-09 09:45] LABS: POTASSIUM 3.1 mmol/L (3.5-5.1)
[2024-05-09 09:51] LABS: CALCIUM 8.9 mg/dL (8.5-10.1)
[2024-05-09 09:52] LABS: MAGNESIUM 1.7 mg/dL (1.8-2.4)
[2024-05-09 09:54] LABS: CREATININE 2.1 mg/dL (0.55-1.3)
[2024-05-09 09:55] LABS: PHOSPHOROUS 3.1 mg/dL (2.5-4.9)
[2024-05-09] MEDS: MAGNESIUM 2GM/50ML STERILE WATER IVPB IVPB ONE (11:11)
[2024-05-09] MEDS: POTASSIUM CHLORIDE ORAL LIQUID 20 MEQ/15 ML PO ONE (11:11)
[2024-05-10 09:28] LABS: BASO % 1.4 % (0-2.0); EOS % 6.5 % (0-4.5); HEMOGLOBIN 7.9 GM/dL (11.7-16.9); LYMPH % 23.6 % (8-40); MCH 24.9 pg (25.7-33.7); MCHC 31.8 g/dl (32.0-35.9); MEAN CELL VOLUME 78.3 fl (80-96); MEAN PLT VOLUME 7.5 fl (7.5-11.1); MONO % 14.2 % (3.8-10.2); NEUT % 54.3 % (42.8-82.8); PLATELET COUNT 524 10^3/uL (134-434); RBC 3.19 M/mm3 (4.00-5.60); RDW 20.4 % (11.9-15.9); WHITE BLOOD COUNT 9.4 K/mm3 (4.0-10.0)
[2024-05-10 09:33] LABS: POTASSIUM 3.6 mmol/L (3.5-5.1)
[2024-05-10 09:43] LABS: BLOOD UREA NITROGEN 38.8 mg/dL (7-18); CALCIUM 8.7 mg/dL (8.5-10.1); MAGNESIUM 2.1 mg/dL (1.8-2.4)
[2024-05-10 09:46] LABS: PHOSPHOROUS 3.5 mg/dL (2.5-4.9)
[2024-05-10 09:47] LABS: CREATININE 2.3 mg/dL (0.55-1.3)
[2024-05-10] MEDS: SODIUM CHLORIDE 1,000 ML IV SCH (11:33)
[2024-05-11 08:43] LABS: HEMATOCRIT 25.1 % (35.4-49); HEMOGLOBIN 8.1 GM/dL (11.7-16.9); MCH 24.7 pg (25.7-33.7); MEAN CELL VOLUME 77.2 fl (80-96); MEAN PLT VOLUME 7.4 fl (7.5-11.1); PLATELET COUNT 476 10^3/uL (134-434); RBC 3.26 M/mm3 (4.00-5.60); RDW 20.4 % (11.9-15.9); WHITE BLOOD COUNT 7.8 K/mm3 (4.0-10.0)
[2024-05-11 09:05] LABS: POTASSIUM 3.7 mmol/L (3.5-5.1)
[2024-05-11 09:08] LABS: BLOOD UREA NITROGEN 43.1 mg/dL (7-18); CALCIUM 8.7 mg/dL (8.5-10.1)
[2024-05-11 09:11] LABS: PHOSPHOROUS 3.9 mg/dL (2.5-4.9)
[2024-05-11 09:12] LABS: CREATININE 2.4 mg/dL (0.55-1.3)
[2024-05-11] MEDS: SODIUM CHLORIDE 1,000 ML IV SCH (12:56)
[2024-05-12 09:30] LABS: POTASSIUM 3.5 mmol/L (3.5-5.1)
[2024-05-12 09:37] LABS: CALCIUM 8.8 mg/dL (8.5-10.1)
[2024-05-12 09:38] LABS: BLOOD UREA NITROGEN 42.2 mg/dL (7-18)
[2024-05-12 09:41] LABS: CREATININE 2.3 mg/dL (0.55-1.3)
[2024-05-12] MEDS: SODIUM CHLORIDE 1,000 ML IV SCH (16:00)
[2024-05-13 09:42] LABS: POTASSIUM 3.2 mmol/L (3.5-5.1)
[2024-05-13 09:45] LABS: CALCIUM 8.7 mg/dL (8.5-10.1)
[2024-05-13 09:46] LABS: BLOOD UREA NITROGEN 40.6 mg/dL (7-18); MAGNESIUM 1.9 mg/dL (1.8-2.4)
[2024-05-13 09:50] LABS: CREATININE 2.2 mg/dL (0.55-1.3); PHOSPHOROUS 3.6 mg/dL (2.5-4.9)
[2024-05-13] MEDS ORDERED: SODIUM CHLORIDE 1,000 ML IV SCH (10:30)
[2024-05-13] MEDS: POTASSIUM CHLORIDE ORAL LIQUID 20 MEQ/15 ML PO ONE (11:54)
[2024-05-14 08:30] LABS: HEMOGLOBIN 7.9 GM/dL (11.7-16.9); LYMPH % 23.6 % (8-40); MCH 24.6 pg (25.7-33.7); MCHC 31.7 g/dl (32.0-35.9); MEAN CELL VOLUME 77.7 fl (80-96); MEAN PLT VOLUME 7.2 fl (7.5-11.1); MONO % 14.1 % (3.8-10.2); NEUT % 52.3 % (42.8-82.8); PLATELET COUNT 404 10^3/uL (134-434); RBC 3.22 M/mm3 (4.00-5.60); RDW 20.7 % (11.9-15.9); WHITE BLOOD COUNT 7.2 K/mm3 (4.0-10.0)
[2024-05-14 08:46] LABS: POTASSIUM 3.5 mmol/L (3.5-5.1)
[2024-05-14 08:47] LABS: CALCIUM 8.6 mg/dL (8.5-10.1)
[2024-05-14 08:48] LABS: BLOOD UREA NITROGEN 38.9 mg/dL (7-18)
[2024-05-14 09:18] LABS: ANISOCYTOSIS 2+
[2024-05-15 08:39] LABS: POTASSIUM 3.3 mmol/L (3.5-5.1)
[2024-05-15 08:42] LABS: BLOOD UREA NITROGEN 39.1 mg/dL (7-18); CALCIUM 8.7 mg/dL (8.5-10.1); MAGNESIUM 1.8 mg/dL (1.8-2.4)
[2024-05-15 08:46] LABS: PHOSPHOROUS 3.7 mg/dL (2.5-4.9)
[2024-05-17] MEDS: HEPARIN NA (PORCINE) 5,000 UNITS/ML 1ML VIAL SQ SCH (10:35)
[2024-05-17 14:21] LABS: CALCIUM 8.8 mg/dL (8.5-10.1)
[2024-05-17 14:22] LABS: BLOOD UREA NITROGEN 32.1 mg/dL (7-18)
[2024-05-17 14:23] LABS: CREATININE 1.8 mg/dL (0.55-1.3)
[2024-05-18 09:53] LABS: POTASSIUM 3.9 mmol/L (3.5-5.1)
[2024-05-18 10:09] LABS: CALCIUM 8.8 mg/dL (8.5-10.1)
[2024-05-18 10:10] LABS: BLOOD UREA NITROGEN 30.4 mg/dL (7-18)
[2024-05-18 10:13] LABS: CREATININE 1.7 mg/dL (0.55-1.3)
[2024-05-19 09:47] LABS: POTASSIUM 3.6 mmol/L (3.5-5.1)
[2024-05-19 09:58] LABS: BLOOD UREA NITROGEN 31.2 mg/dL (7-18)
[2024-05-19 10:01] LABS: CREATININE 1.8 mg/dL (0.55-1.3)
[2024-05-21 10:00] LABS: POTASSIUM 3.6 mmol/L (3.5-5.1)
[2024-05-21 10:16] LABS: CALCIUM 8.9 mg/dL (8.5-10.1)
[2024-05-21 10:17] LABS: ALBUMIN 2.3 g/dl (3.4-5.0); MAGNESIUM 1.6 mg/dL (1.8-2.4)
[2024-05-21 10:18] LABS: BLOOD UREA NITROGEN 30.9 mg/dL (7-18)
[2024-05-21 10:20] LABS: CREATININE 1.8 mg/dL (0.55-1.3); PHOSPHOROUS 4.1 mg/dL (2.5-4.9)
[2024-05-21 10:22] LABS: BILIRUBIN,TOTAL 0.5 mg/dL (0.2-1); TOT PROT 8.9 g/dl (6.4-8.2)
[2024-05-21] MEDS: MAGNESIUM SULF 50% (8.12 MEQ/2 ML-1 GM VIAL) IVPB ONE (14:12)
[2024-05-21] MEDS: MAGNESIUM OXIDE 400 MG TABLET (FP) PO ONE (15:22)
[2024-05-25 09:43] LABS: POTASSIUM 3.4 mmol/L (3.5-5.1)
[2024-05-25 09:51] LABS: CALCIUM 9.2 mg/dL (8.5-10.1)
[2024-05-25 09:54] LABS: CREATININE 1.7 mg/dL (0.55-1.3)
[2024-05-25] MEDS: POTASSIUM CHLORIDE ORAL LIQUID 20 MEQ/15 ML PO ONE (11:44)
[2024-05-25] MEDS: LIDOCAINE HCL 2% JELLY 6 ML TP ONE (15:02)
[2024-05-26 09:52] LABS: POTASSIUM 3.7 mmol/L (3.5-5.1)
[2024-05-26 10:06] LABS: BLOOD UREA NITROGEN 30.9 mg/dL (7-18); CALCIUM 9.3 mg/dL (8.5-10.1)
[2024-05-26 10:10] LABS: CREATININE 1.8 mg/dL (0.55-1.3)
[2024-05-26] MEDS: SODIUM CHLORIDE 1,000 ML IV SCH (18:30)
[2024-05-27 05:36] VITALS: TEMP 97.7
[2024-05-27 09:28] LABS: POTASSIUM 3.8 mmol/L (3.5-5.1)
[2024-05-27 09:44] LABS: BLOOD UREA NITROGEN 29.2 mg/dL (7-18)
[2024-05-27 09:47] LABS: PHOSPHOROUS 3.6 mg/dL (2.5-4.9)
[2024-05-27 09:49] LABS: CREATININE 1.7 mg/dL (0.55-1.3)
[2024-05-27 09:55] LABS: CALCIUM 9.6 mg/dL (8.5-10.1)
[2024-05-27 09:56] LABS: MAGNESIUM 1.8 mg/dL (1.8-2.4)
[2024-05-27 15:29] VITALS: BP 139/84; PULSE 87; RESP 16
== END 2024-05-27 16:34 | DRG 432 ==
LOC: JER 06:58 → JERBED 15:18 → J5S 21:12
PROVIDERS: ADMIT Internal Medicine
PROC: 0W9G3ZZ Drainage of Peritoneal Cavity, Percutaneous Approach (ICD-10-PCS; principal; 2024-04-29)
PROC: 0DP6XUZ Removal of Feeding Device from Stomach, External Approach (ICD-10-PCS; 2024-05-24)
DX: K70.31 Alcoholic cirrhosis of liver with ascites (principal); R53.2 Functional quadriplegia; J96.10 Chronic respiratory failure, unspecified whether with hypoxia or hypercapnia; J98.11 Atelectasis; I13.0 Hypertensive heart and chronic kidney disease with heart failure and stage 1 through stage 4 chronic kidney disease, or unspecified chronic kidney disease; I50.22 Chronic systolic (congestive) heart failure; N18.9 Chronic kidney disease, unspecified; E11.22 Type 2 diabetes mellitus with diabetic chronic kidney disease; J44.9 Chronic obstructive pulmonary disease, unspecified; R19.7 Diarrhea, unspecified; K91.1 Postgastric surgery syndromes; E87.70 Fluid overload, unspecified; E78.5 Hyperlipidemia, unspecified; K21.9 Gastro-esophageal reflux disease without esophagitis; Z86.718 Personal history of other venous thrombosis and embolism; Z93.1 Gastrostomy status; Z93.0 Tracheostomy status
CPT/HCPCS: 36415; 71045-TC-FY; 74176-TC; 76942-TC; 80048; 80053; 82042; 82150; 82465; 82945; 82962; 83615; 83690; 83735; 83930; 83935; 84100; 84157; 84300; 84478; 85025; 85027; 85610; 85730; 87045; 87046; 87070; 87075; 87102; 87116; 87205; 87206; 87210; 87481; 88108; 88305-TC; 93005; 93010; 93975; 97116-GP; 97162-GP; 99285-25; J1644; J1756